=== PATIENT | female | born 1975 | race Caucasian/White ===

== ENCOUNTER 2016-06-13 03:51 | Emergency (ER) | payer OTHER ==
[~2016-06-13] VITALS: Ht 154.9 cm; Wt 56.0 kg
[2016-06-13] VITALS (7 sets, daily range): BP systolic 92–111; BP diastolic 52–60; PULSE 70–91; RESP 15–18; TEMP 96.6–97.7; O2SAT 97–99
[~2016-06-13 03:51] MED LIST: FLUO20TA20 PO; HYDRO50 PO; LURA80 PO; TRAZ50TA78 PO
[2016-06-13] MEDS ORDERED: CLON.5 PO (04:19)
[2016-06-13] MEDS ORDERED: PROZ40CA PO (04:19)
[2016-06-13] MEDS ORDERED: CLON0.1T PO (04:19)
[2016-06-13] MEDS ORDERED: SUBO8MIS SL (04:20)
[2016-06-13] MEDS ORDERED: LURA20TA PO (04:21)
[2016-06-13 04:22] LABS: AUTOMATED NEUTROPHIL # 3.6 TH/MM3 (1.8-7.7); BASOPHIL % 0.4 % (0.0-2.0); EOSINOPHIL # 0.8 TH/MM3 (0-0.4); EOSINOPHIL % 10.2 % (0.0-4.0); HEMATOCRIT 37.3 % (35.0-46.0); HEMO FLAGS DIFF FINAL; LYMPH % 33.8 % (9.0-44.0); LYMPHOCYTE # 2.6 TH/MM3 (1.0-4.8); MEAN CELL VOLUME 86.1 FL (80.0-100.0); MEAN CORPUSCULAR HEMOGLOBIN 29.6 PG (27.0-34.0); MEAN CORPUSCULAR HGB CONC 34.4 % (32.0-36.0); MONO % 8.4 % (0.0-8.0); NEUT % 47.2 % (16.0-70.0); PLATELET COUNT 199 TH/MM3 (150-450); RED BLOOD COUNT 4.33 MIL/MM3 (4.00-5.30); RED CELL DISTRIBUTION WIDTH 14.6 % (11.6-17.2); WHITE BLOOD COUNT 7.7 TH/MM3 (4.0-11.0)
[2016-06-13 04:41] LABS: ALT (GPT) 14 U/L (10-53); ANION GAP 6 MEQ/L (5-15); AST (GOT) 14 U/L (15-37); BLOOD UREA NITROGEN 15 MG/DL (7-18); CHLORIDE 104 MEQ/L (98-107); GLOMERULAR FILTRATION RATE 76 ML/MIN (>89); POTASSIUM 3.3 MEQ/L (3.5-5.1); SODIUM (NA) 138 MEQ/L (136-145)
[2016-06-13 04:43] LABS: ALKALINE PHOSPHATASE 68 U/L (45-117); TOTAL BILIRUBIN ADULT 0.5 MG/DL (0.2-1.0)
[2016-06-13] MEDS ORDERED: POTASSIUM CHLORIDE 20 MEQ CONTROLLED RELEASE TAB PO ONE (05:00)
--- NOTE | 2016-06-13 05:34 | PD ---
HPI Chief Complaint: Psychiatric Symptoms Time Seen by Provider: 05:34 Travel History International Travel<30 days: No Contact w/Intl Traveler<30days: No Traveled to known affect area: No History of Present Illness HPI 41-year-old female with history of bipolar disorder, currently not taking her medications and substance abuse presents to the emergency department under Pollard act for psychiatric evaluation. Patient is depressed about her children about her addiction to opiates. She recently used heroin. She states she was walking in the Road contemplating jumping in traffic. She is brought here for further evaluation. Patient does not offer much history. She has very flat depressed affect. She has no other symptoms to report. PFSH Past Medical History Medical History: Denies Significant Hx Arthritis: No Asthma: No Blood Disorders: No Bipolar Disorder: Yes Anxiety: Yes Depression: Yes Heart Rhythm Problems: No High Cholesterol: No Chest Pain: No Congestive Heart Failure: No COPD: No Cerebrovascular Accident: No Diminished Hearing: No Endocrine: No Gastrointestinal Disorders: No GERD: No Genitourinary: No Hepatitis: No Hiatal Hernia: No Hypertension: No Immune Disorder: No Implanted Vascular Access Dvce: No Kidney Stones: No Musculoskeletal: No Neurologic: No Psychiatric: Yes Reproductive: No Respiratory: No Integumentary: Yes (HERPES) Migraines: Yes Myocardial Infarction: No Renal Failure: No Sleep Apnea: No Ulcer: No PNEUMOCCOCAL Vaccine (Year): 2 ?: Unknown Menopausal: No : 4 Para: 3 Miscarriage: 0 : 1 Past Surgical History Surgical History: No Previous Surgery Abdominal Surgery: No Appendectomy: No Cardiac Surgery: No Cholecystectomy: No Ear Surgery: No Endocrine Surgery: No Eye Surgery: No Genitourinary Surgery: No Gynecologic Surgery: No Neurologic Surgery: No Oral Surgery: No Thoracic Surgery: No Other Surgery: Yes (BREAST AUGMENTATION) Social History Alcohol Use: Yes Tobacco Use: Yes Substance Use: Yes (HEROIN 2 DAYS AGO) Allergies-Medications (Allergen,Severity, Reaction): Coded Allergies: Bactrim (Verified Allergy, Severe, SWELLING AND HIVES, 06/13/16) Penicillin (Verified Allergy, Severe, HIVES, 06/13/16) Reported Meds & Prescriptions Reported Meds & Active Scripts Active Reported Latuda (Lurasidone) 20 Mg Tab 20 Mg PO DAILY Suboxone Sublingual Film (Buprenorphine-Naloxone Sublingual Film) 8-2 Mg Film 1 Film SL Unique ID number required: Klonopin (Clonazepam) Unknown Strength Tab Unknown Dose PO BID Clonidine (Clonidine HCl) 0.1 Mg Tab 0.1 Mg PO BID Prozac (Fluoxetine HCl) 40 Mg Cap 40 Mg PO DAILY Review of Systems Except as stated in HPI: all other systems reviewed are Neg Physical Exam Narrative GENERAL: Well-nourished female patient, in no acute distress SKIN: Focused skin assessment warm/dry. HEAD: Atraumatic. Normocephalic. EYES: Pupils equal and round. No scleral icterus. No injection or drainage. ENT: No nasal bleeding or discharge. Mucous membranes pink and moist. NECK: Trachea midline. No JVD. CARDIOVASCULAR: Regular rate and rhythm. No murmur appreciated. RESPIRATORY: No accessory muscle use. Clear to auscultation. Breath sounds equal bilaterally. GASTROINTESTINAL: Abdomen soft, non-tender, nondistended. Hepatic and splenic margins not palpable. MUSCULOSKELETAL: No obvious deformities. No clubbing. No cyanosis. No edema. NEUROLOGICAL: Awake and alert. No obvious cranial nerve deficits. Motor grossly within normal limits. Normal speech. PSYCHIATRIC: Tearful, flat affect Data Data Last Documented VS Vital Signs Date Time Temp Pulse Resp B/P Pulse Ox O2 Delivery O2 Flow Rate FiO2 06/13/16 04:17 74 06/13/16 04:07 97.7 15 99/57 97 Orders Complete Blood Count With Diff (06/13/16 04:04) Comprehensive Metabolic Panel (06/13/16 04:04) Psych Screen (06/13/16 04:04) Drug Screen, Random Urine (06/13/16 04:04) Alcohol (Ethanol) (06/13/16 04:04) Salicylates (Aspirin) (06/13/16 04:04) Potassium Chloride (Kcl) (06/13/16 05:00) Labs Laboratory Tests Test 06/13/16 04:18 White Blood Count 7.7 TH/MM3 Red Blood Count 4.33 MIL/MM3 Hemoglobin 12.8 GM/DL Hematocrit 37.3 % Mean Corpuscular Volume 86.1 FL Mean Corpuscular Hemoglobin 29.6 PG Mean Corpuscular Hemoglobin 34.4 % Concent Red Cell Distribution Width 14.6 % Platelet Count 199 TH/MM3 Mean Platelet Volume 9.7 FL Neutrophils (%) (Auto) 47.2 % Lymphocytes (%) (Auto) 33.8 % Monocytes (%) (Auto) 8.4 % Eosinophils (%) (Auto) 10.2 % Basophils (%) (Auto) 0.4 % Neutrophils # (Auto) 3.6 TH/MM3 Lymphocytes # (Auto) 2.6 TH/MM3 Monocytes # (Auto) 0.6 TH/MM3 Eosinophils # (Auto) 0.8 TH/MM3 Basophils # (Auto) 0.0 TH/MM3 CBC Comment DIFF FINAL Differential Comment Sodium Level 138 MEQ/L Potassium Level 3.3 MEQ/L Chloride Level 104 MEQ/L Carbon Dioxide Level 28.0 MEQ/L Anion Gap 6 MEQ/L Blood Urea Nitrogen 15 MG/DL Creatinine 0.82 MG/DL Estimat Glomerular Filtration 76 ML/MIN Rate Random Glucose 150 MG/DL Calcium Level 8.9 MG/DL Total Bilirubin 0.5 MG/DL Aspartate Amino Transf 14 U/L (AST/SGOT) Alanine Aminotransferase 14 U/L (ALT/SGPT) Alkaline Phosphatase 68 U/L Total Protein 6.9 GM/DL Albumin 3.5 GM/DL Salicylates Level 3.1 MG/DL Ethyl Alcohol Level LESS THAN 3 MG/DL MDM Medical Decision Making Medical Screen Exam Complete: Yes Emergency Medical Condition: Yes Medical Record Reviewed: Yes Differential Diagnosis Mood disorder versus personality disorder versus adjustment reaction disorder versus polysubstance abuse Narrative Course 41-year-old female presents to the emergency department under Pollard act for psychiatric evaluation. Lab work is without acute concern. Patient does have hypokalemia at 3.3. This was repleted here in the emergency department. She is medically cleared to undergo psychiatric screening for further evaluation and disposition. Mental health screening discussed with the patient. Psychiatric screen ordered. Diagnosis Primary Impression: Bipolar disorder Qualified Code: F31.32 - Bipolar affective disorder, currently depressed, moderate Condition: Stable Eliane Batista June 13, 2016 05:34
[2016-06-13 15:20] LABS: AMPHETAMINE, URINE NEG (NEG); BARBITURATES, URINE NEG (NEG)
[2016-06-13 15:26] LABS: COCAINE, URINE POS (NEG)
[2016-06-14 02:23] VITALS: BP 103/58; PULSE 72; RESP 18; O2SAT 99
== END 2016-06-14 05:10 ==
LOC: NEPD 03:51 → NEPJ 06-14 05:10
DX: F31.9 Bipolar disorder, unspecified (principal); F11.10 Opioid abuse, uncomplicated; Z72.0 Tobacco use; E87.6 Hypokalemia
CPT/HCPCS: 80053; 80307; 85025; 99284

== ENCOUNTER 2016-11-06 13:24 | Emergency (ER) | payer SELFPAY ==
[~2016-11-06] VITALS: Ht 154.9 cm; Wt 50.0 kg
[~2016-11-06 13:24] MED LIST changes: +CLON.5 PO; +CLON0.1T PO; -FLUO20TA20 PO; -HYDRO50 PO; +LURA20TA PO; -LURA80 PO; +PROZ40CA PO; +SUBO8MIS SL; -TRAZ50TA78 PO
[2016-11-06 13:33] VITALS: BP 105/82; PULSE 93; RESP 18; TEMP 98.2; O2SAT 98
[2016-11-06 14:26] LABS: AUTOMATED NEUTROPHIL # 9.3 TH/MM3 (1.8-7.7); BASOPHIL # 0.1 TH/MM3 (0-0.2); BASOPHIL % 0.9 % (0.0-2.0); EOSINOPHIL # 0.2 TH/MM3 (0-0.4); EOSINOPHIL % 1.9 % (0.0-4.0); HEMATOCRIT 41.8 % (35.0-46.0); HEMO FLAGS DIFF FINAL; LYMPH % 16.2 % (9.0-44.0); MEAN CELL VOLUME 90.6 FL (80.0-100.0); MEAN CORPUSCULAR HEMOGLOBIN 30.4 PG (27.0-34.0); MEAN CORPUSCULAR HGB CONC 33.6 % (32.0-36.0); MONO % 5.5 % (0.0-8.0); NEUT % 75.5 % (16.0-70.0); PLATELET COUNT 284 TH/MM3 (150-450); RED BLOOD COUNT 4.61 MIL/MM3 (4.00-5.30); RED CELL DISTRIBUTION WIDTH 14.3 % (11.6-17.2); WHITE BLOOD COUNT 12.4 TH/MM3 (4.0-11.0)
[2016-11-06 14:40] LABS: ALT (GPT) 15 U/L (10-53); ANION GAP 4 MEQ/L (5-15); AST (GOT) 10 U/L (15-37); BICARBONATE 27.4 MEQ/L (21.0-32.0); BLOOD UREA NITROGEN 12 MG/DL (7-18); CHLORIDE 110 MEQ/L (98-107); GLOMERULAR FILTRATION RATE 82 ML/MIN (>89); POTASSIUM 3.8 MEQ/L (3.5-5.1); SODIUM (NA) 141 MEQ/L (136-145)
[2016-11-06 14:42] LABS: ALKALINE PHOSPHATASE 69 U/L (45-117); TOTAL BILIRUBIN ADULT 1.2 MG/DL (0.2-1.0)
[2016-11-06 14:48] LABS: ACETAMINOPHEN LESS THAN 2.0 MCG/ML (10.0-30.0); ALCOHOL LESS THAN 3 MG/DL (0-5)
--- NOTE | 2016-11-06 15:16 | PD ---
HPI Chief Complaint: Suicide Ideation/Attempt Time Seen by Provider: 14:58 Travel History International Travel<30 days: No Contact w/Intl Traveler<30days: No Traveled to known affect area: No History of Present Illness HPI 41-year-old female that presents to the ED for evaluation of psychiatric evaluation. Patient was Pollard acted by police. Patient reports that she has a history of bipolar disorder. She's been off her medications for some time. Per patient she believes that she needs to be back on them. She states Prozac and latuda. Patient didn't denies any other medical issues. She does take Lortab chronically for back pain. She does abuses drugs including injectables. She last used a couple days ago. Per patient she has his help us at this time and she does want to hurt herself but she states that she wants help. She denies any actual plan to she can tell me. No fevers chills or sweats. No other medical issues. No head injuries. No other medical complaints at this time. She denies any history of hypertension or diabetes. She does have allergies to different antibiotics. She denies any cuts. She was Pollard acted by police for her own safety. She has been Pollard acted in the past. Denies any homicidal ideation. No hearing voices. She attributes her depression to worsening secondary to substance abuse. This is been ongoing for a few weeks and worsened by being off her medications for a couple months now. PFSH Past Medical History Arthritis: No Asthma: No Blood Disorders: No Bipolar Disorder: Yes Anxiety: Yes Depression: Yes Heart Rhythm Problems: No High Cholesterol: No Chest Pain: No Congestive Heart Failure: No COPD: No Cerebrovascular Accident: No Diminished Hearing: No Endocrine: No Gastrointestinal Disorders: No GERD: No Genitourinary: No Hepatitis: No Hiatal Hernia: No Hypertension: No Immune Disorder: No Implanted Vascular Access Dvce: No Kidney Stones: No Musculoskeletal: No Neurologic: No Psychiatric: Yes Reproductive: No Respiratory: No Integumentary: Yes (HERPES) Migraines: Yes Myocardial Infarction: No Renal Failure: No Sleep Apnea: No Ulcer: No PNEUMOCCOCAL Vaccine (Year): 2 ?: Not Menopausal: No : 4 Para: 3 Miscarriage: 0 : 1 Past Surgical History Abdominal Surgery: No Appendectomy: No Cardiac Surgery: No Cholecystectomy: No Ear Surgery: No Endocrine Surgery: No Eye Surgery: No Genitourinary Surgery: No Gynecologic Surgery: No Neurologic Surgery: No Oral Surgery: No Thoracic Surgery: No Other Surgery: Yes (BREAST AUGMENTATION) Social History Alcohol Use: Yes Tobacco Use: Yes Substance Use: Yes Allergies-Medications (Allergen,Severity, Reaction): Coded Allergies: penicillin G (Unverified Allergy, Severe, HIVES, 11/06/16) sulfamethoxazole (Unverified Allergy, Severe, SWELLING AND HIVES, 11/06/16) trimethoprim (Unverified Allergy, Severe, SWELLING AND HIVES, 11/06/16) Reported Meds & Prescriptions Reported Meds & Active Scripts Active Cipro (Ciprofloxacin HCl) 500 Mg Tab 500 Mg PO BID 7 Days Reported Latuda (Lurasidone) 20 Mg Tab 20 Mg PO DAILY Suboxone Sublingual Film (Buprenorphine-Naloxone Sublingual Film) 8-2 Mg Film 1 Film SL Unique ID number required: Klonopin (Clonazepam) Unknown Strength Tab Unknown Dose PO BID Clonidine (Clonidine HCl) 0.1 Mg Tab 0.1 Mg PO BID Prozac (Fluoxetine HCl) 40 Mg Cap 40 Mg PO DAILY Review of Systems Except as stated in HPI: all other systems reviewed are Neg Physical Exam Narrative GENERAL: SKIN: Warm and dry. HEAD: Atraumatic. Normocephalic. EYES: Pupils equal and round. No scleral icterus. No injection or drainage. ENT: No nasal bleeding or discharge. Mucous membranes pink and moist. Tongue is midline. No uvula deviation. NECK: Trachea midline. No JVD. CARDIOVASCULAR: Regular rate and rhythm. No murmurs, S3, S4. RESPIRATORY: No accessory muscle use. Clear to auscultation. Breath sounds equal bilaterally. GASTROINTESTINAL: Abdomen soft, non-tender, nondistended. Hepatic and splenic margins not palpable. MUSCULOSKELETAL: Extremities without clubbing, cyanosis, or edema. No obvious deformities. Full range of motion of the upper and lower extremities bilaterally. 2+ pulses bilaterally. NEUROLOGICAL: Awake and alert. No obvious cranial nerve deficits. Motor grossly within normal limits. Five out of 5 muscle strength in the arms and legs. Normal speech. PSYCHIATRIC: Depressed mood and affect; insight and judgment normal. Data Data Last Documented VS Vital Signs Date Time Temp Pulse Resp B/P (MAP) Pulse Ox O2 Delivery O2 Flow Rate FiO2 11/06/16 15:50 97.6 92 18 119/70 (86) 99 Room Air Orders Orders Complete Blood Count With Diff (11/06/16 13:48) Comprehensive Metabolic Panel (11/06/16 13:48) Urinalysis - C+S If Indicated (11/06/16 13:48) Psych Screen (11/06/16 13:48) Drug Screen, Random Urine (11/06/16 13:48) Alcohol (Ethanol) (11/06/16 13:48) Salicylates (Aspirin) (11/06/16 13:48) Tylenol (Acetaminophen) (11/06/16 13:48) Diet Regular Basic (11/06/16 Dinner) Urine Culture (11/06/16 15:28) Ciprofloxacin (Cipro) (11/06/16 17:30) Labs Laboratory Tests Test 11/06/16 14:08 11/06/16 15:28 White Blood Count 12.4 TH/MM3 Red Blood Count 4.61 MIL/MM3 Hemoglobin 14.0 GM/DL Hematocrit 41.8 % Mean Corpuscular Volume 90.6 FL Mean Corpuscular Hemoglobin 30.4 PG Mean Corpuscular Hemoglobin Concent 33.6 % Red Cell Distribution Width 14.3 % Platelet Count 284 TH/MM3 Mean Platelet Volume 9.1 FL Neutrophils (%) (Auto) 75.5 % Lymphocytes (%) (Auto) 16.2 % Monocytes (%) (Auto) 5.5 % Eosinophils (%) (Auto) 1.9 % Basophils (%) (Auto) 0.9 % Neutrophils # (Auto) 9.3 TH/MM3 Lymphocytes # (Auto) 2.0 TH/MM3 Monocytes # (Auto) 0.7 TH/MM3 Eosinophils # (Auto) 0.2 TH/MM3 Basophils # (Auto) 0.1 TH/MM3 CBC Comment DIFF FINAL Differential Comment Blood Urea Nitrogen 12 MG/DL Creatinine 0.77 MG/DL Random Glucose 101 MG/DL Total Protein 7.3 GM/DL Albumin 3.9 GM/DL Calcium Level 8.9 MG/DL Alkaline Phosphatase 69 U/L Aspartate Amino Transf (AST/SGOT) 10 U/L Alanine Aminotransferase (ALT/SGPT) 15 U/L Total Bilirubin 1.2 MG/DL Sodium Level 141 MEQ/L Potassium Level 3.8 MEQ/L Chloride Level 110 MEQ/L Carbon Dioxide Level 27.4 MEQ/L Anion Gap 4 MEQ/L Estimat Glomerular Filtration Rate 82 ML/MIN Salicylates Level 2.8 MG/DL Acetaminophen Level LESS THAN 2.0 MCG/ML Ethyl Alcohol Level LESS THAN 3 MG/DL Urine Color RED Urine Turbidity HAZY Urine pH 5.0 Urine Specific Cassandra 1.030 Urine Protein 30 mg/dL Urine Glucose (UA) TRACE mg/dL Urine Ketones NEG mg/dL Urine Occult Blood LARGE Urine Nitrite NEG Urine Bilirubin NEG Urine Urobilinogen LESS THAN 2.0 MG/DL Urine Leukocyte Esterase SMALL Urine RBC /hpf Urine WBC 63 /hpf Urine Squamous Epithelial Cells 5 /hpf Urine Amorphous Sediment RARE Urine Mucus MANY /lpf Microscopic Urinalysis Comment CULTURE INDICATED Urine Opiates Screen NEG Urine Barbiturates Screen NEG Urine Amphetamines Screen POS Urine Benzodiazepines Screen POS Urine Cocaine Screen POS Urine Cannabinoids Screen NEG MDM Medical Decision Making Medical Screen Exam Complete: Yes Emergency Medical Condition: Yes Medical Record Reviewed: Yes Interpretation(s) CBC & BMP Diagram 11/06/16 14:08 Total Protein 7.3, Albumin 3.9, Calcium Level 8.9, Alkaline Phosphatase 69, Aspartate Amino Transf (AST/SGOT) 10 L, Alanine Aminotransferase (ALT/SGPT) 15, Total Bilirubin 1.2 H tox positive for benzos, meth, cocaine UA shows UTI Differential Diagnosis Depression versus suicidal ideation versus anxiety versus adjustment disorder versus mood disorder versus bipolar disorder versus schizophrenia versus paranoid disorder versus psychosis versus substance abuse versus alcohol abuse versus alcohol induced psychosis versus homicidality addition versus cutting versus personality disorder Narrative Course 41-year-old female that presents to the ED for evaluation of psych. Patient was properly examined and was found to have signs and symptoms consistent with psychiatric illness. No sign of acute medical distress. Labs were drawn. Patient will be medically clear. Okay to be seen by psych. Mental health screening was discussed with the patient. She was found to have UTI and started on cipro here with prescription. Diagnosis Primary Impression: Bipolar disorder Qualified Codes: F31.32 - Bipolar disorder, current episode depressed, moderate Additional Impressions: UTI (urinary tract infection) Qualified Codes: N30.00 - Acute cystitis without hematuria Polysubstance abuse Scripts Ciprofloxacin (Cipro) 500 Mg Tab 500 MG PO BID for Infection for 7 Days, #14 TAB 0 Refills Prov: Renetta Espinal MD 11/06/16 Juan Noe Nov 06, 2016 15:16
[2016-11-06 15:50] VITALS: BP 119/70; PULSE 92; RESP 18; TEMP 97.6; O2SAT 99
[2016-11-06 16:13] LABS: BLOOD, URINE LARGE (NEG); COMMENT (UR) CULTURE INDICATED; CULTURE IF INDICATED CULTURE INDICATED; GLUCOSE,URINE TRACE mg/dL (NEG); KETONE, URINE NEG (NEG); MUCUS URINE MANY /lpf (OCC); NITRITE,URINE NEG (NEG); SQUAMOUS EPITHELIAL CELL URINE 5 /hpf (0-5); URINE COLOR RED (YELLW/STRAW)
[2016-11-06] MEDS ORDERED: CIPR-9 PO (17:18)
[2016-11-06] MEDS ORDERED: CIPROFLOXACIN 500 MG TAB PO ONE (17:30)
[2016-11-06 20:18] VITALS: BP 94/50; PULSE 61; RESP 18
[2016-11-07 06:35] VITALS: BP 104/54; PULSE 63; RESP 18; O2SAT 96
[2016-11-07 10:44] VITALS: BP 105/60; PULSE 65; RESP 16
--- NOTE | 2016-11-07 16:07 | PD ---
History of Present Illness Chief Complaint: Suicide Ideation/Attempt Time Seen by Provider: 15:40 Travel History International Travel<30 Days: No Contact w/Intl Traveler<30days: No Known affected area: No Legal Status Legal Status: Pollard Act Pollard Act Signed By: Teddy Pollard Act Comment: [employer] Badge#[id number], Case#[id number] History of Present Illness: History of Present Illness HPI 41-year-old female with history of bipolar disorder as well as substance abuse who presents to the ED for evaluation of psychiatric evaluation. Patient was Pollard acted by police after she reported that she didn't care if she lived or and that she would use narcotics as a way to do so. She's been off her medications for some time. Per patient she believes that she needs to be back on them. and wants to be back on them . She admits to having had a relapse and has been using drugs for the past 3 days . Denies any homicidal ideation. She attributes her depression to worsening secondary to substance abuse. Patient seen. record reviewed. Her last psychiatric admission was in 2016. Current toxicology is positive for amphetamines, benzos and cocaine. Patient has been monitored in [facility]. She is alert, oriented, irritable. Speech is clear and logical, not pressured. There is no psychosis, no josé miguel. Denies suicidal ideation, intent or plan. Patient is requesting to have her psychiatric medications started. She agrees to follow up with [facility] in the morning. She has met with egg caser to assist her with setting up appointment. [facility] Past Medical History Arthritis: No Asthma: No Blood Disorders: No Bipolar Disorder: Yes Anxiety: Yes Depression: Yes Heart Rhythm Problems: No High Cholesterol: No Chest Pain: No Congestive Heart Failure: No COPD: No Cerebrovascular Accident: No Diminished Hearing: No Endocrine: No Gastrointestinal Disorders: No GERD: No Genitourinary: No Hepatitis: No Hiatal Hernia: No Hypertension: No Immune Disorder: No Implanted Vascular Access Dvce: No Kidney Stones: No Medical other: Yes (HSV) Musculoskeletal: No Neurologic: No Psychiatric: Yes Reproductive: No Respiratory: No Integumentary: Yes (HERPES) Migraines: Yes Myocardial Infarction: No Renal Failure: No Sleep Apnea: No Ulcer: No PNEUMOCCOCAL Vaccine (Year): 2 ?: Not Menopausal: No : 4 Para: 3 Miscarriage: 0 : 1 Past Surgical History Abdominal Surgery: No Appendectomy: No Cardiac Surgery: No Cholecystectomy: No Ear Surgery: No Endocrine Surgery: No Eye Surgery: No Genitourinary Surgery: No Gynecologic Surgery: No Neurologic Surgery: No Oral Surgery: No Thoracic Surgery: No Other Surgery: Yes (breast augmentation) Psychiatric History Psychiatric History Hx Psychiatric Treatment: Says she was last at [facility] but cannot say when, guesses 6 mo to 1 yr ago Last hosp in 2016 History of Inpatient Treatment: Yes Guns or firearms in home: No Social History . Lives with her and her child. Works at a [employer]. Hx Alcohol Use: Yes Hx Tobacco Use: Yes Hx Substance Use: Yes Substance Use Type: Crack, Amphetamines-Stimulants, Benzos (Valium,Xanax), Cocaine Other Substances Used: Pt says she has been to numerous substance abuse facilities Hx of Substance Use Treatment: Yes Family Psychiatric History Negative Allergies-Medications (Allergen,Severity, Reaction): Coded Allergies: penicillin G (Unverified Allergy, Severe, HIVES, 11/06/16) sulfamethoxazole (Unverified Allergy, Severe, SWELLING AND HIVES, 11/06/16) trimethoprim (Unverified Allergy, Severe, SWELLING AND HIVES, 11/06/16) Reported Meds & Prescriptions Reported Meds & Active Scripts Active Cipro (Ciprofloxacin HCl) 500 Mg Tab 500 Mg PO BID 7 Days Reported Latuda (Lurasidone) 20 Mg Tab 20 Mg PO DAILY Suboxone Sublingual Film (Buprenorphine-Naloxone Sublingual Film) 8-2 Mg Film 1 Film SL Unique ID number required: Klonopin (Clonazepam) Unknown Strength Tab Unknown Dose PO BID Clonidine (Clonidine HCl) 0.1 Mg Tab 0.1 Mg PO BID Prozac (Fluoxetine HCl) 40 Mg Cap 40 Mg PO DAILY Review of Systems Except as stated in HPI: all other systems reviewed are Neg Exam Alert: Yes [place]: Person (ox4) Mood: Angry Affect: Appropriate Speech: Clear, Logical Eye Contact: Normal Memory Intact: Comment (Not impaired) Hallucinations: Other (negative) Delusions: No Suicidal: Ideation (deneis any) Homicidal: Ideation (deneis any) Insight/Judgement Poor. not impaired. MDM Medical Decision Making Medical Record Reviewed: Yes Assessment/Plan 41-year-old female with history of bipolar disorder as well as substance abuse who presents to the ED for evaluation of psychiatric evaluation. Patient was Pollard acted by police after she reported that she didn't care if she lived or and that she would use narcotics as a way to do so. She's been off her medications for several months. . Per patient she believes that she needs to be back on them. and wants to be back on them . She admits to having had a relapse and has been using drugs for the past 3 days . Denies any homicidal ideation. She attributes her depression to worsening secondary to substance abuse. Sherice is not psychotic, not manic. She denies any suicidality. She wants to have her medications restarted and agrees to follow up with [facility] in the morning. Lift Ba at this time. Follow up with [facility]. Orders Orders Urine Culture (11/06/16 15:28) Ciprofloxacin (Cipro) (11/06/16 17:30) Diet Regular Basic (11/07/16 Breakfast) Diet Regular Basic (11/07/16 Lunch) Diet Regular Basic (11/07/16 Dinner) Results Vital Signs Date Time Temp Pulse Resp B/P (MAP) Pulse Ox O2 Delivery O2 Flow Rate FiO2 11/07/16 10:44 65 16 105/60 (75) 11/07/16 06:35 63 18 104/54 (71) 96 Room Air 11/06/16 20:18 61 18 94/50 (65) Date/Time Source Procedure Growth Status 11/06/16 15:28 Urine Random Urine Urine Culture - Preliminary IMMATURE GROWTH - REINCUBATE Resulted Diagnosis Primary Impression: Bipolar disorder Additional Impressions: UTI (urinary tract infection) Polysubstance abuse Psychiatrically Cleared: Yes Med/ Other Pt Specific Info: Prescription(s) given Prescriptions Ciprofloxacin (Cipro) 500 Mg Tab 500 MG PO BID for Infection for 7 Days, #14 TAB 0 Refills Prov: Renetta Espinal MD 11/06/16 Disposition: 01 DISCHARGE HOME Condition: Stable Problem Qualifiers Primary Impression: Bipolar disorder Qualified Codes: F31.32 - Bipolar disorder, current episode depressed, moderate Additional Impressions: UTI (urinary tract infection) Qualified Codes: N30.00 - Acute cystitis without hematuria Roma Jaramillo Nov 07, 2016 16:07
[2016-11-07] MEDS ORDERED: FLUoxetine HCL 20 MG CAP PO ONE (16:15)
[2016-11-07] MEDS ORDERED: LURASIDONE 40 MG TAB PO ONE (16:15)
--- NOTE | 2016-11-07 16:44 | PD ---
Physical Exam Date Seen by Provider: Nov 07, 2016 Time Seen by Provider: 16:41 Data Data Last Documented VS Vital Signs Date Time Temp Pulse Resp B/P (MAP) Pulse Ox O2 Delivery O2 Flow Rate FiO2 11/07/16 17:10 11/07/16 17:01 65 16 Room Air 11/07/16 06:35 96 11/06/16 15:50 97.6 Orders Orders Complete Blood Count With Diff (11/06/16 13:48) Comprehensive Metabolic Panel (11/06/16 13:48) Urinalysis - C+S If Indicated (11/06/16 13:48) Psych Screen (11/06/16 13:48) Drug Screen, Random Urine (11/06/16 13:48) Alcohol (Ethanol) (11/06/16 13:48) Salicylates (Aspirin) (11/06/16 13:48) Tylenol (Acetaminophen) (11/06/16 13:48) Diet Regular Basic (11/06/16 Dinner) Urine Culture (11/06/16 15:28) Ciprofloxacin (Cipro) (11/06/16 17:30) Diet Regular Basic (11/07/16 Breakfast) Diet Regular Basic (11/07/16 Lunch) Diet Regular Basic (11/07/16 Dinner) Lurasidone (Latuda) (11/07/16 16:15) Fluoxetine (Prozac) (11/07/16 16:15) Labs Laboratory Tests Test 11/06/16 14:08 11/06/16 15:28 White Blood Count 12.4 TH/MM3 Red Blood Count 4.61 MIL/MM3 Hemoglobin 14.0 GM/DL Hematocrit 41.8 % Mean Corpuscular Volume 90.6 FL Mean Corpuscular Hemoglobin 30.4 PG Mean Corpuscular Hemoglobin Concent 33.6 % Red Cell Distribution Width 14.3 % Platelet Count 284 TH/MM3 Mean Platelet Volume 9.1 FL Neutrophils (%) (Auto) 75.5 % Lymphocytes (%) (Auto) 16.2 % Monocytes (%) (Auto) 5.5 % Eosinophils (%) (Auto) 1.9 % Basophils (%) (Auto) 0.9 % Neutrophils # (Auto) 9.3 TH/MM3 Lymphocytes # (Auto) 2.0 TH/MM3 Monocytes # (Auto) 0.7 TH/MM3 Eosinophils # (Auto) 0.2 TH/MM3 Basophils # (Auto) 0.1 TH/MM3 CBC Comment DIFF FINAL Differential Comment Blood Urea Nitrogen 12 MG/DL Creatinine 0.77 MG/DL Random Glucose 101 MG/DL Total Protein 7.3 GM/DL Albumin 3.9 GM/DL Calcium Level 8.9 MG/DL Alkaline Phosphatase 69 U/L Aspartate Amino Transf (AST/SGOT) 10 U/L Alanine Aminotransferase (ALT/SGPT) 15 U/L Total Bilirubin 1.2 MG/DL Sodium Level 141 MEQ/L Potassium Level 3.8 MEQ/L Chloride Level 110 MEQ/L Carbon Dioxide Level 27.4 MEQ/L Anion Gap 4 MEQ/L Estimat Glomerular Filtration Rate 82 ML/MIN Salicylates Level 2.8 MG/DL Acetaminophen Level LESS THAN 2.0 MCG/ML Ethyl Alcohol Level LESS THAN 3 MG/DL Urine Color RED Urine Turbidity HAZY Urine pH 5.0 Urine Specific [place] 1.030 Urine Protein 30 mg/dL Urine Glucose (UA) TRACE mg/dL Urine Ketones NEG mg/dL Urine Occult Blood LARGE Urine Nitrite NEG Urine Bilirubin NEG Urine Urobilinogen LESS THAN 2.0 MG/DL Urine Leukocyte Esterase SMALL Urine RBC /hpf Urine WBC 63 /hpf Urine Squamous Epithelial Cells 5 /hpf Urine Amorphous Sediment RARE Urine Mucus MANY /lpf Microscopic Urinalysis Comment CULTURE INDICATED Urine Opiates Screen NEG Urine Barbiturates Screen NEG Urine Amphetamines Screen POS Urine Benzodiazepines Screen POS Urine Cocaine Screen POS Urine Cannabinoids Screen NEG MDM Supervised Visit with BENITA: No Narrative Course 41-year-old female initially brought to the ED under Pollard act. I was asked to disposition the patient. The patient was evaluated and medically cleared by Johan Noe PA-C. She was evaluated by the psychiatric nurse, SAUNDRA Wade and the Pollard act was lifted. Please see their notes for those details. On my evaluation the patient is alert, oriented. She has no somatic complaints. GENERAL: Well-nourished, well-developed white female in no acute distress. SKIN: Focused skin assessment warm/dry. HEAD: Normocephalic. EYES: No scleral icterus. No injection or drainage. NECK: Supple, trachea midline. No JVD or lymphadenopathy. CARDIOVASCULAR: Regular rate and rhythm without murmurs, gallops, or rubs. RESPIRATORY: Breath sounds clear and equal bilaterally. No accessory muscle use. GASTROINTESTINAL: Abdomen soft, non-tender, nondistended. Active bowel sounds. MUSCULOSKELETAL: No cyanosis, or edema. Normal gait. BACK: Nontender without obvious deformity. No CVA tenderness. Patient is diagnosed with UTI, bipolar and polysubstance abuse. She is provided with a course of Cipro. She is instructed to seek outpatient treatment at [facility]. She is stable and discharged home. Diagnosis Primary Impression: Bipolar disorder Qualified Codes: F31.32 - Bipolar disorder, current episode depressed, moderate Additional Impressions: UTI (urinary tract infection) Qualified Codes: N30.00 - Acute cystitis without hematuria Polysubstance abuse Referrals: [facility] (Out patient) Patient Instructions: General Instructions, Urinary Tract Infection in Women ( ED) Additional Instruction: Rest, hydrate. Take all antibiotics as prescribed, even if your symptoms resolved. Seek outpatient treatment at [facility] as discussed with the nurse practitioner. Return to the ED for any urgent or emergent medical condition. Med/Other Pt SpecificInfo: Prescription(s) given Scripts Ciprofloxacin (Cipro) 500 Mg Tab 500 MG PO BID for Infection for 7 Days, #14 TAB 0 Refills Prov: Renetta Espinal MD 11/06/16 Disposition: 01 DISCHARGE HOME Condition: Stable Jewell Maldonado Nov 07, 2016 16:44
[2016-11-07 17:01] VITALS: BP 105/60; PULSE 65; RESP 16
== END 2016-11-07 18:46 | disposition home or self-care (01) ==
LOC: NEPJ 13:24
DX: F31.9 Bipolar disorder, unspecified (principal); N39.0 Urinary tract infection, site not specified; F19.10 Other psychoactive substance abuse, uncomplicated; F41.9 Anxiety disorder, unspecified; Z72.0 Tobacco use; Z79.899 Other long term (current) drug therapy; Z88.0 Allergy status to penicillin; Z88.2 Allergy status to sulfonamides; Z88.8 Allergy status to other drugs, medicaments and biological substances
CPT/HCPCS: 80053; 80307; 81001; 85025; 87086; 99283

== ENCOUNTER 2016-12-06 14:31 | Emergency (ER) | payer OTHER ==
[~2016-12-06] VITALS: Ht 154.9 cm; Wt 50.0 kg
[~2016-12-06 14:31] MED LIST changes: +CIPR-9 PO
[2016-12-06 15:17] LABS: AUTOMATED NEUTROPHIL # 4.2 TH/MM3 (1.8-7.7); BASOPHIL # 0.1 TH/MM3 (0-0.2); BASOPHIL % 1.3 % (0.0-2.0); EOSINOPHIL # 0.2 TH/MM3 (0-0.4); EOSINOPHIL % 2.3 % (0.0-4.0); HEMATOCRIT 38.2 % (35.0-46.0); HEMO FLAGS DIFF FINAL; LYMPH % 33.1 % (9.0-44.0); LYMPHOCYTE # 2.6 TH/MM3 (1.0-4.8); MEAN CORPUSCULAR HEMOGLOBIN 30.1 PG (27.0-34.0); MEAN CORPUSCULAR HGB CONC 33.9 % (32.0-36.0); MONO % 9.4 % (0.0-8.0); NEUT % 53.9 % (16.0-70.0); PLATELET COUNT 268 TH/MM3 (150-450); RED BLOOD COUNT 4.29 MIL/MM3 (4.00-5.30); RED CELL DISTRIBUTION WIDTH 13.7 % (11.6-17.2); WHITE BLOOD COUNT 7.8 TH/MM3 (4.0-11.0)
[2016-12-06 15:28] LABS: BLOOD, URINE SMALL (NEG); COMMENT (UR) CULT NOT INDICATED; CULTURE IF INDICATED CULT NOT INDICATED; GLUCOSE,URINE NEG (NEG); KETONE, URINE NEG (NEG); NITRITE,URINE NEG (NEG); SQUAMOUS EPITHELIAL CELL URINE 1 /hpf (0-5); TRANSITIONAL EPI CELLS, URINE <1 /hpf; URINE COLOR YELLOW (YELLW/STRAW)
[2016-12-06 15:33] LABS: ANION GAP 8 MEQ/L (5-15); AST (GOT) 11 U/L (15-37); BICARBONATE 26.1 MEQ/L (21.0-32.0); BLOOD UREA NITROGEN 10 MG/DL (7-18); CHLORIDE 106 MEQ/L (98-107); GLOMERULAR FILTRATION RATE 101 ML/MIN (>89); POTASSIUM 3.3 MEQ/L (3.5-5.1); SODIUM (NA) 140 MEQ/L (136-145)
[2016-12-06 15:36] LABS: ACETAMINOPHEN LESS THAN 2.0 MCG/ML (10.0-30.0); ALKALINE PHOSPHATASE 69 U/L (45-117); ALT (GPT) 12 U/L (10-53); TOTAL BILIRUBIN ADULT 0.5 MG/DL (0.2-1.0)
[2016-12-06 15:40] LABS: ALCOHOL LESS THAN 3 MG/DL (0-5)
--- NOTE | 2016-12-06 16:11 | PD ---
HPI Chief Complaint: psychiatric complaint Time Seen by Provider: 15:56 Travel History International Travel<30 days: No Contact w/Intl Traveler<30days: No History of Present Illness HPI 41-year-old female presents to the emergency Department under Pollard act for suicidal ideation. The patient states that she is detoxing from IV heroin for the past 48 hours. She states she started feeling suicidal today. Patient states she has been using IV heroin for the past 2 weeks. This is due to not being able to obtain pills from the street. Patient states that she has tried to get help with detox, because been unable to do so. She stresses that she would like help with detox. Patient reports no chronic medical problems and takes no prescribed medications. She has no medical complaints at this time. PFSH Past Medical History Arthritis: No Asthma: No Blood Disorders: No Bipolar Disorder: Yes Anxiety: Yes Depression: Yes Heart Rhythm Problems: No High Cholesterol: No Chest Pain: No Congestive Heart Failure: No COPD: No Cerebrovascular Accident: No Diminished Hearing: No Endocrine: No Gastrointestinal Disorders: No GERD: No Genitourinary: No Hepatitis: No Hiatal Hernia: No Hypertension: No Immune Disorder: No Implanted Vascular Access Dvce: No Kidney Stones: No Musculoskeletal: No Neurologic: No Psychiatric: Yes Reproductive: No Respiratory: No Integumentary: Yes (HERPES) Migraines: Yes Myocardial Infarction: No Renal Failure: No Sleep Apnea: No Ulcer: No PNEUMOCCOCAL Vaccine (Year): 2 Menopausal: No : 4 Para: 3 Miscarriage: 0 : 1 Past Surgical History Abdominal Surgery: No Appendectomy: No Cardiac Surgery: No Cholecystectomy: No Ear Surgery: No Endocrine Surgery: No Eye Surgery: No Genitourinary Surgery: No Gynecologic Surgery: No Neurologic Surgery: No Oral Surgery: No Thoracic Surgery: No Other Surgery: Yes (breast augmentation) Social History Alcohol Use: Yes Tobacco Use: Yes Substance Use: Yes Allergies-Medications (Allergen,Severity, Reaction): Coded Allergies: penicillin G (Unverified Allergy, Severe, HIVES, 11/06/16) sulfamethoxazole (Unverified Allergy, Severe, SWELLING AND HIVES, 11/06/16) trimethoprim (Unverified Allergy, Severe, SWELLING AND HIVES, 11/06/16) Reported Meds & Prescriptions Reported Meds & Active Scripts Active Cipro (Ciprofloxacin HCl) 500 Mg Tab 500 Mg PO BID 7 Days Reported Latuda (Lurasidone) 20 Mg Tab 20 Mg PO DAILY Suboxone Sublingual Film (Buprenorphine-Naloxone Sublingual Film) 8-2 Mg Film 1 Film SL Unique ID number required: Klonopin (Clonazepam) Unknown Strength Tab Unknown Dose PO BID Clonidine (Clonidine HCl) 0.1 Mg Tab 0.1 Mg PO BID Prozac (Fluoxetine HCl) 40 Mg Cap 40 Mg PO DAILY Review of Systems Except as stated in HPI: all other systems reviewed are Neg Physical Exam Narrative GENERAL: Well-nourished, well-developed female patient, ambulatory. Afebrile. SKIN: Focused skin assessment warm/dry. HEAD: Normocephalic. Atraumatic. EYES: No scleral icterus. No injection or drainage. NECK: Supple, trachea midline. No JVD or lymphadenopathy. CARDIOVASCULAR: Regular rate and rhythm without murmurs, gallops, or rubs. RESPIRATORY: Breath sounds equal bilaterally. No accessory muscle use. Lungs sounds are clear to auscultation. GASTROINTESTINAL: Abdomen soft, non-tender, nondistended. MUSCULOSKELETAL: No cyanosis, or edema. PSYCHIATRIC: No delusional thought processes. No hallucinations. Data Data Last Documented VS Vital Signs Date Time Temp Pulse Resp B/P (MAP) Pulse Ox O2 Delivery O2 Flow Rate FiO2 12/06/16 17:16 99.2 12/06/16 16:28 83 18 96 Room Air Orders Orders Complete Blood Count With Diff (12/06/16 14:38) Comprehensive Metabolic Panel (12/06/16 14:38) Urinalysis - C+S If Indicated (12/06/16 14:38) Psych Screen (12/06/16 14:38) Drug Screen, Random Urine (12/06/16 14:38) Alcohol (Ethanol) (12/06/16 14:38) Salicylates (Aspirin) (12/06/16 14:38) Tylenol (Acetaminophen) (12/06/16 14:38) Potassium Chloride (Kcl) (12/06/16 16:30) Diet Regular Basic (12/06/16 Dinner) Labs Laboratory Tests Test 12/06/16 14:50 White Blood Count 7.8 TH/MM3 Red Blood Count 4.29 MIL/MM3 Hemoglobin 12.9 GM/DL Hematocrit 38.2 % Mean Corpuscular Volume 89.0 FL Mean Corpuscular Hemoglobin 30.1 PG Mean Corpuscular Hemoglobin Concent 33.9 % Red Cell Distribution Width 13.7 % Platelet Count 268 TH/MM3 Mean Platelet Volume 8.8 FL Neutrophils (%) (Auto) 53.9 % Lymphocytes (%) (Auto) 33.1 % Monocytes (%) (Auto) 9.4 % Eosinophils (%) (Auto) 2.3 % Basophils (%) (Auto) 1.3 % Neutrophils # (Auto) 4.2 TH/MM3 Lymphocytes # (Auto) 2.6 TH/MM3 Monocytes # (Auto) 0.7 TH/MM3 Eosinophils # (Auto) 0.2 TH/MM3 Basophils # (Auto) 0.1 TH/MM3 CBC Comment DIFF FINAL Differential Comment Urine Color YELLOW Urine Turbidity CLEAR Urine pH 7.0 Urine Specific [place] 1.016 Urine Protein NEG mg/dL Urine Glucose (UA) NEG mg/dL Urine Ketones NEG mg/dL Urine Occult Blood SMALL Urine Nitrite NEG Urine Bilirubin NEG Urine Urobilinogen 2.0 MG/DL Urine Leukocyte Esterase NEG Urine RBC 2 /hpf Urine WBC 1 /hpf Urine Squamous Epithelial Cells 1 /hpf Urine Transitional Epithelial Cells <1 /hpf Microscopic Urinalysis Comment CULT NOT INDICATED Blood Urea Nitrogen 10 MG/DL Creatinine 0.64 MG/DL Random Glucose 106 MG/DL Total Protein 6.4 GM/DL Albumin 3.1 GM/DL Calcium Level 8.1 MG/DL Alkaline Phosphatase 69 U/L Aspartate Amino Transf (AST/SGOT) 11 U/L Alanine Aminotransferase (ALT/SGPT) 12 U/L Total Bilirubin 0.5 MG/DL Sodium Level 140 MEQ/L Potassium Level 3.3 MEQ/L Chloride Level 106 MEQ/L Carbon Dioxide Level 26.1 MEQ/L Anion Gap 8 MEQ/L Estimat Glomerular Filtration Rate 101 ML/MIN Salicylates Level LESS THAN 1.7 MG/DL Acetaminophen Level LESS THAN 2.0 MCG/ML Ethyl Alcohol Level LESS THAN 3 MG/DL MDM Medical Decision Making Medical Screen Exam Complete: Yes Emergency Medical Condition: Yes Medical Record Reviewed: Yes Differential Diagnosis Polysubstance abuse versus suicidal ideation versus depression Narrative Course 41-year-old female presents to the emergency department wanting detox from heroin and subsequent depression. CBC shows no acute abnormality. CMP shows hypokalemia at 3.3. Salicylate level is less than 1.7. Tylenol level is less than 2.0. Alcohol level is less than 3. UA is negative for acute infection. Patient is given potassium 20 mEq by mouth. Patient is medically cleared for psychiatric screening and disposition. Mental health screening discussed with the patient. Psychiatric screen ordered. Diagnosis Primary Impression: Polysubstance abuse Condition: Deanne Davis Dec 06, 2016 16:11
[2016-12-06 16:28] VITALS: BP 127/69; PULSE 83; RESP 18; O2SAT 96
[2016-12-06] MEDS ORDERED: POTASSIUM CHLORIDE 20 MEQ CONTROLLED RELEASE TAB PO ONE (16:30)
[2016-12-06 17:16] VITALS: TEMP 99.2
== END 2016-12-07 02:07 ==
LOC: NEPJ 14:31
DX: F19.10 Other psychoactive substance abuse, uncomplicated (principal); F31.9 Bipolar disorder, unspecified; F41.9 Anxiety disorder, unspecified; E87.6 Hypokalemia; F32.9 Major depressive disorder, single episode, unspecified
CPT/HCPCS: 80053; 80307; 81001; 85025; 99285

== ENCOUNTER 2017-03-12 09:49 | Emergency (ER) | payer SELFPAY ==
[~2017-03-12] VITALS: Ht 165.1 cm; Wt 62.0 kg
[2017-03-12] VITALS (9 sets, daily range): BP systolic 97–121; BP diastolic 53–79; PULSE 77–128; RESP 16–18; TEMP 97.7–98.5; O2SAT 77–98
[~2017-03-12 09:49] MED LIST changes: -CIPR-9 PO; -CLON.5 PO
[2017-03-12] MEDS ORDERED: SODIUM CHLOR 0.9% 1000 ML INJ 1,000 ML IV SCH (10:17)
--- NOTE | 2017-03-12 10:24 | PD ---
HPI Chief Complaint: Psychiatric Symptoms Time Seen by Provider: 10:17 Travel History International Travel<30 days: No Contact w/Intl Traveler<30days: No Traveled to known affect area: No History of Present Illness HPI Patient is brought in by swetha PATIÑO who apparently placed a Pollard act but also seems like the patient is on the rest of the officers sticking around and the patient is in handcuffs. Patient herself is not very communicative and has decided not to answer any of my questions. Of note the officer is at the foot of the bed. Per the Pollard act forearm apparently the patient took 10 Seroquel about an hour prior to arrival. Patient did decide to answer yes or no to list of questions for the associated factors. Patient is not sleepy and denies any nausea, vomiting, diarrhea, somnolence, dizziness, lightheadedness, PFSH Past Medical History Arthritis: No Asthma: No Blood Disorders: No Bipolar Disorder: Yes Anxiety: Yes Depression: Yes Heart Rhythm Problems: No High Cholesterol: No Chest Pain: No Congestive Heart Failure: No COPD: No Cerebrovascular Accident: No Diminished Hearing: No Endocrine: No Gastrointestinal Disorders: No GERD: No Genitourinary: No Hepatitis: No Hiatal Hernia: No Hypertension: No Immune Disorder: No Implanted Vascular Access Dvce: No Kidney Stones: No Musculoskeletal: No Neurologic: No Psychiatric: Yes Reproductive: No Respiratory: No Integumentary: Yes Migraines: Yes Myocardial Infarction: No Renal Failure: No Sleep Apnea: No Ulcer: No PNEUMOCCOCAL Vaccine (Year): 2 ?: Unknown Menopausal: No : 4 Para: 3 Miscarriage: 0 : 1 Past Surgical History Abdominal Surgery: No Appendectomy: No Cardiac Surgery: No Cholecystectomy: No Ear Surgery: No Endocrine Surgery: No Eye Surgery: No Genitourinary Surgery: No Gynecologic Surgery: No Neurologic Surgery: No Oral Surgery: No Thoracic Surgery: No Other Surgery: Yes (breast augmentation) Social History Alcohol Use: Yes Tobacco Use: Yes Substance Use: Yes Allergies-Medications (Allergen,Severity, Reaction): Coded Allergies: penicillin G (Verified Allergy, Severe, HIVES, 03/12/17) sulfamethoxazole (Verified Allergy, Severe, SWELLING AND HIVES, 03/12/17) trimethoprim (Verified Allergy, Severe, SWELLING AND HIVES, 03/12/17) Reported Meds & Prescriptions Reported Meds & Active Scripts Active Reported Latuda (Lurasidone) 20 Mg Tab 20 Mg PO DAILY Suboxone Sublingual Film (Buprenorphine-Naloxone Sublingual Film) 8-2 Mg Film 1 Film SL Unique ID number required: Clonidine (Clonidine HCl) 0.1 Mg Tab 0.1 Mg PO BID Prozac (Fluoxetine HCl) 40 Mg Cap 40 Mg PO DAILY Review of Systems Except as stated in HPI: all other systems reviewed are Neg General / Constitutional: No: Fever Eyes: No: Visual changes HENT: No: Headaches Cardiovascular: No: Chest Pain or Discomfort Respiratory: No: Shortness of Breath Gastrointestinal: No: Abdominal Pain Genitourinary: No: Dysuria Musculoskeletal: No: Pain Skin: No Rash Neurologic: No: Weakness Psychiatric: No: Depression Endocrine: No: Polydipsia Hematologic/Lymphatic: No: Easy Bruising Physical Exam Narrative GENERAL: SKIN: Warm and dry. HEAD: Atraumatic. Normocephalic. EYES: Pupils equal and round. No scleral icterus. No injection or drainage. ENT: No nasal bleeding or discharge. Mucous membranes pink and moist. NECK: Trachea midline. No JVD. CARDIOVASCULAR: Regular rate and rhythm. RESPIRATORY: No accessory muscle use. Clear to auscultation. Breath sounds equal bilaterally. GASTROINTESTINAL: Abdomen soft, non-tender, nondistended. Hepatic and splenic margins not palpable. MUSCULOSKELETAL: Extremities without clubbing, cyanosis, or edema. No obvious deformities. NEUROLOGICAL: Awake and alert. No obvious cranial nerve deficits. Motor grossly within normal limits. Five out of 5 muscle strength in the arms and legs. Normal speech. PSYCHIATRIC: Appropriate mood and affect; insight and judgment normal. Data Data Last Documented VS Vital Signs Date Time Temp Pulse Resp B/P (MAP) Pulse Ox O2 Delivery O2 Flow Rate FiO2 03/12/17 10:52 116 18 115/76 (89) 98 Room Air 03/12/17 10:03 97.8 Orders Orders Complete Blood Count With Diff (03/12/17 10:17) Comprehensive Metabolic Panel (03/12/17 10:17) Thyroid Stimulating Hormone (03/12/17 10:17) Ed Urine Pregnancytest Poc (03/12/17 10:17) Electrocardiogram (03/12/17 10:17) Oximetry (03/12/17 10:17) Iv Access Insert/Monitor (03/12/17 10:17) Ecg Monitoring (03/12/17 10:17) Psych Screen (03/12/17 10:17) Drug Screen, Random Urine (03/12/17 10:17) Alcohol (Ethanol) (03/12/17 10:17) Salicylates (Aspirin) (03/12/17 10:17) Tylenol (Acetaminophen) (03/12/17 10:17) Creatine Kinase (Cpk) (03/12/17 10:17) Sodium Chlor 0.9% 1000 Ml Inj (Ns 1000 M (03/12/17 10:17) Labs Laboratory Tests Test 03/12/17 10:26 03/12/17 10:40 White Blood Count 7.7 TH/MM3 Red Blood Count 4.71 MIL/MM3 Hemoglobin 14.1 GM/DL Hematocrit 40.6 % Mean Corpuscular Volume 86.1 FL Mean Corpuscular Hemoglobin 29.9 PG Mean Corpuscular Hemoglobin Concent 34.7 % Red Cell Distribution Width 15.4 % Platelet Count 324 TH/MM3 Mean Platelet Volume 8.2 FL Neutrophils (%) (Auto) 74.0 % Lymphocytes (%) (Auto) 17.9 % Monocytes (%) (Auto) 5.9 % Eosinophils (%) (Auto) 1.3 % Basophils (%) (Auto) 0.9 % Neutrophils # (Auto) 5.7 TH/MM3 Lymphocytes # (Auto) 1.4 TH/MM3 Monocytes # (Auto) 0.5 TH/MM3 Eosinophils # (Auto) 0.1 TH/MM3 Basophils # (Auto) 0.1 TH/MM3 CBC Comment DIFF FINAL Differential Comment Blood Urea Nitrogen 13 MG/DL Creatinine 0.79 MG/DL Random Glucose 121 MG/DL Total Protein 7.7 GM/DL Albumin 3.2 GM/DL Calcium Level 8.8 MG/DL Alkaline Phosphatase 99 U/L Aspartate Amino Transf (AST/SGOT) 44 U/L Alanine Aminotransferase (ALT/SGPT) 69 U/L Total Bilirubin 0.8 MG/DL Sodium Level 138 MEQ/L Potassium Level 3.6 MEQ/L Chloride Level 105 MEQ/L Carbon Dioxide Level 25.1 MEQ/L Anion Gap 8 MEQ/L Estimat Glomerular Filtration Rate 79 ML/MIN Total Creatine Kinase 77 U/L Thyroid Stimulating Hormone 3rd Gen 0.235 uIU/ML Salicylates Level 1.8 MG/DL Acetaminophen Level LESS THAN 2.0 MCG/ML Ethyl Alcohol Level LESS THAN 3 MG/DL Urine Opiates Screen NEG Urine Barbiturates Screen NEG Urine Amphetamines Screen NEG Urine Benzodiazepines Screen POS Urine Cocaine Screen POS Urine Cannabinoids Screen NEG MDM Medical Decision Making Medical Screen Exam Complete: Yes Emergency Medical Condition: Yes Medical Record Reviewed: Yes Differential Diagnosis electrolyte abnl v substance use Narrative Course No evidence of prolonged QT, no evidence of any hypotension, no evidence of any somnolence, and no evidence of any rhabdomyolysis at this time. The patient's screening TSH was abnormally low suggestive for possible hyperthyroid type of syndrome which should be further evaluated by her pcp... Tox screen positive for cocaine and benzos. Diagnosis Primary Impression: Medical clearance for psychiatric admission Admitting Information Admitting Physician Requests: Angel Sanchez MD Mar 12, 2017 10:24
[2017-03-12 10:39] LABS: AUTOMATED NEUTROPHIL # 5.7 TH/MM3 (1.8-7.7); BASOPHIL # 0.1 TH/MM3 (0-0.2); BASOPHIL % 0.9 % (0.0-2.0); EOSINOPHIL # 0.1 TH/MM3 (0-0.4); EOSINOPHIL % 1.3 % (0.0-4.0); HEMATOCRIT 40.6 % (35.0-46.0); HEMOGLOBIN 14.1 GM/DL (11.6-15.3); LYMPH % 17.9 % (9.0-44.0); LYMPHOCYTE # 1.4 TH/MM3 (1.0-4.8); MEAN CELL VOLUME 86.1 FL (80.0-100.0); MEAN CORPUSCULAR HEMOGLOBIN 29.9 PG (27.0-34.0); MEAN CORPUSCULAR HGB CONC 34.7 % (32.0-36.0); MEAN PLATELET VOLUME 8.2 FL (7.0-11.0); MONO % 5.9 % (0.0-8.0); MONOCYTE # 0.5 TH/MM3 (0-0.9); PLATELET COUNT 324 TH/MM3 (150-450); RED BLOOD COUNT 4.71 MIL/MM3 (4.00-5.30); RED CELL DISTRIBUTION WIDTH 15.4 % (11.6-17.2); WHITE BLOOD COUNT 7.7 TH/MM3 (4.0-11.0)
[2017-03-12 11:00] LABS: ALBUMIN 3.2 GM/DL (3.4-5.0); ALT (GPT) 69 U/L (10-53); AST (GOT) 44 U/L (15-37); BICARBONATE 25.1 MEQ/L (21.0-32.0); BLOOD UREA NITROGEN 13 MG/DL (7-18); CALCIUM 8.8 MG/DL (8.5-10.1); CHLORIDE 105 MEQ/L (98-107); CREATININE 0.79 MG/DL (0.50-1.00); GLOMERULAR FILTRATION RATE 79 ML/MIN (>89); GLUCOSE,RANDOM 121 MG/DL (74-106); SODIUM (NA) 138 MEQ/L (136-145)
[2017-03-12 11:11] LABS: ACETAMINOPHEN LESS THAN 2.0 MCG/ML (10.0-30.0); ALKALINE PHOSPHATASE 99 U/L (45-117); TOTAL BILIRUBIN ADULT 0.8 MG/DL (0.2-1.0); TOTAL PROTEIN 7.7 GM/DL (6.4-8.2)
--- NOTE | 2017-03-12 21:55 | EKG ---
Date Performed: 03/12/2017 Time Performed: 10:07:31 PTAGE: 42 years EKG: SINUS TACHYCARDIA WITH SHORT MA INTERVAL NONSPECIFIC T-WAVE ABNORMALITY ABNORMAL RHYTHM ECG PREVIOUS TRACING : 08/18/2015 11.38 DOCTOR: Alison Rosa Interpretating Date/Time 03/12/2017 21:52:33
[2017-03-13 03:12] VITALS: BP 140/96; PULSE 83; RESP 18; TEMP 100.1; O2SAT 98
[2017-03-13 06:32] VITALS: BP 132/85; PULSE 82; RESP 18; O2SAT 98
[2017-03-13 11:40] VITALS: BP 129/76; PULSE 78; RESP 16; O2SAT 98
--- NOTE | 2017-03-13 12:01 | PD ---
History of Present Illness Chief Complaint: Psychiatric Symptoms Time Seen by Provider: 11:45 Travel History International Travel<30 Days: No Contact w/Intl Traveler<30days: No Known affected area: No Legal Status Legal Status: Pollard Act Pollard Act Signed By: Maude Nash History of Present Illness: History of Present Illness Patient is a 42-year-old female with reported history of bipolar disorder and substance use disorder who is brought in by [facility] under a Pollard act after she reported that she had overdosed on some pills with the intent of ending her life. Upon arrival to the ED the patient was only minimally cooperative with evaluation. The patient was monitored in secure environment and presented no suicidality and no behavioral disturbances. Electronic medical record is reviewed the patient has been seen previously in the emergency department with substance use related issues. Her last admission to inpatient psychiatry was in 2016 for treatment of bipolar disorder, suicidal ideation in context of substance abuse. Her current toxicology is positive for cocaine and benzos. This morning the patient is more cooperative with evaluation. She is alert and oriented, maintaining basic hygiene. No evidence of any psychosis, no josé miguel or hypomania. The patient states that she went to [place] for substance abuse treatment but was not admitted at the facility because she had a infection under her breast. She states she came to [facility] for treatment of such. She further states that she has a bed available in [place] at [facility] for substance abuse and that's where she would like to go. The patient is not suicidal and not homicidal. She is cognitively intact. She is future oriented and wants transportation to [place]. PFSH Past Medical History Arthritis: No Asthma: No Blood Disorders: No Bipolar Disorder: Yes Anxiety: Yes Depression: Yes Heart Rhythm Problems: No High Cholesterol: No Chest Pain: No Congestive Heart Failure: No COPD: No Cerebrovascular Accident: No Diminished Hearing: No Endocrine: No Gastrointestinal Disorders: No GERD: No Genitourinary: No Hepatitis: No Hiatal Hernia: No Hypertension: No Immune Disorder: No Implanted Vascular Access Dvce: No Kidney Stones: No Musculoskeletal: No Neurologic: No Psychiatric: Yes Reproductive: No Respiratory: No Integumentary: Yes Migraines: Yes Myocardial Infarction: No Renal Failure: No Sleep Apnea: No Ulcer: No Tetanus Vaccination: > 5 Years Influenza Vaccination: No PNEUMOCCOCAL Vaccine (Year): 2 ?: Unknown Menopausal: No : 4 Para: 3 Miscarriage: 0 : 1 Past Surgical History Abdominal Surgery: No Appendectomy: No Cardiac Surgery: No Cholecystectomy: No Ear Surgery: No Endocrine Surgery: No Eye Surgery: No Genitourinary Surgery: No Gynecologic Surgery: No Neurologic Surgery: No Oral Surgery: No Thoracic Surgery: No Other Surgery: Yes (breast augmentation) Psychiatric History Psychiatric History Hx Psychiatric Treatment: Has received psychiatric treatment in the past at [facility]. Last time she was on psychiatric medications was approximately 1-1/2 years ago. History of Inpatient Treatment: Yes ([facility] Guns or firearms in home: No Social History Single, homeless female. Hx Alcohol Use: Yes (OCASSIONALLY) Hx Tobacco Use: Yes (OCASSIONALLY) Hx Substance Use: Yes Substance Use Type: Benzos (Valium,Xanax), Cocaine, Synth Opiates-Pain Pills Other Substances Used: Patient states she takes drugs to make herself feel better. Hx of Substance Use Treatment: Yes Family Psychiatric History Negative Allergies-Medications (Allergen,Severity, Reaction): Coded Allergies: penicillin G (Verified Allergy, Severe, HIVES, 03/12/17) sulfamethoxazole (Verified Allergy, Severe, SWELLING AND HIVES, 03/12/17) trimethoprim (Verified Allergy, Severe, SWELLING AND HIVES, 03/12/17) Reported Meds & Prescriptions Reported Meds & Active Scripts Active Reported Latuda (Lurasidone) 20 Mg Tab 20 Mg PO DAILY Suboxone Sublingual Film (Buprenorphine-Naloxone Sublingual Film) 8-2 Mg Film 1 Film SL Unique ID number required: Clonidine (Clonidine HCl) 0.1 Mg Tab 0.1 Mg PO BID Prozac (Fluoxetine HCl) 40 Mg Cap 40 Mg PO DAILY Review of Systems Psychiatric: DENIES: Anxiety, Confusion, Mood changes, Depression, Hallucinations, Agitation, Suicidal Ideation, Homicidal Ideation, Delusions Except as stated in HPI: all other systems reviewed are Neg Mental Status Examination Appearance: Appropriate (In [facility]) Consciousness: Alert Orientation: x4 Motor Activity: Normal gait Speech: Unremarkable Language: Adequate Fund of Knowledge: Adequate Attention and Concentration: Adequate Memory: Unremarkable Mood: Sad Affect: Appropriate Thought Process & Associations: Intact, Logical, Goal directed Thought Content: Appropriate Hallucination Type: None Delusion Type: None Suicidal Ideation: No Suicidal Plan: No Suicidal Intention: No Homicidal Ideation: No Homicidal Plan: No Homicidal Intention: No Insight: Adequate Judgment: Adequate MDM Medical Decision Making Medical Record Reviewed: Yes Assessment/Plan History of Present Illness 42-year-old female with history of bipolar disorder, substance use disorder who presents to [facility] under Pollard act initiated by lawn care specialist. The patient reported to officers that she had overdosed on some pills with the intention of wanting to end her life. The patient was monitored in secure environment and presented no suicidality. She presented no evidence of any unstable mental illness at this time. The patient reports that she was seeking admission to a substance abuse treatment facility but was found to have a rash and was sent to the hospital for medical clearance. However she did not inform anyone about this last night. At this time the patient is not psychotic , not suicidal or homicidal, she is requesting transportation to [place] because she has a bed awaiting for her at a treatment facility there. The patient is informed that we will not be able to transport her to [place] but we will provide her with some bus passes so that she can at least get to [facility] for treatment of her substance abuse. At this time the patient does not meet criteria for Pollard act. The Pollard act is lifted. Psychiatrically clear for discharge from ED. Orders Orders Diet Regular Basic (03/12/17 Dinner) Diet Regular Basic (03/13/17 Breakfast) Diet Regular Basic (03/13/17 Lunch) Results Vital Signs Date Time Temp Pulse Resp B/P (MAP) Pulse Ox O2 Delivery O2 Flow Rate FiO2 03/13/17 11:40 78 16 129/76 (93) 98 Room Air 03/13/17 06:32 82 18 132/85 (101) 98 03/13/17 03:12 100.1 83 18 140/96 (111) 98 Room Air 03/12/17 22:05 98.2 77 18 97/55 (69) 95 Room Air 03/12/17 19:38 98.5 91 18 108/53 (71) 95 Room Air 03/12/17 17:00 97.8 98 16 118/73 (88) 98 Room Air 03/12/17 13:21 97.8 106 16 108/77 (87) 98 Room Air Diagnosis Primary Impression: Cocaine use disorder, moderate, dependence Additional Impression: Substance induced mood disorder Psychiatrically Cleared: Yes Med/ Other Pt Specific Info: No Change to Meds Disposition: 01 DISCHARGE HOME Condition: Stable Problem Qualifiers Roma Jaramillo Mar 13, 2017 12:01
--- NOTE | 2017-03-13 12:21 | PD ---
Physical Exam Time Seen by Provider: 12:19 SAUNDRA Lindsey has evaluated the patient, lifted the Pollard act and cleared the patient for discharge. Data Data Last Documented VS Vital Signs Date Time Temp Pulse Resp B/P (MAP) Pulse Ox O2 Delivery O2 Flow Rate FiO2 03/13/17 11:40 78 16 129/76 (93) 98 Room Air 03/13/17 03:12 100.1 Orders Orders Complete Blood Count With Diff (03/12/17 10:17) Comprehensive Metabolic Panel (03/12/17 10:17) Thyroid Stimulating Hormone (03/12/17 10:17) Ed Urine Pregnancytest Poc (03/12/17 10:17) Electrocardiogram (03/12/17 10:17) Oximetry (03/12/17 10:17) Iv Access Insert/Monitor (03/12/17 10:17) Ecg Monitoring (03/12/17 10:17) Psych Screen (03/12/17 10:17) Drug Screen, Random Urine (03/12/17 10:17) Alcohol (Ethanol) (03/12/17 10:17) Salicylates (Aspirin) (03/12/17 10:17) Tylenol (Acetaminophen) (03/12/17 10:17) Creatine Kinase (Cpk) (03/12/17 10:17) Sodium Chlor 0.9% 1000 Ml Inj (Ns 1000 M (03/12/17 10:17) Diet Regular Basic (03/12/17 Dinner) Diet Regular Basic (03/13/17 Breakfast) Diet Regular Basic (03/13/17 Lunch) Labs Laboratory Tests Test 03/12/17 10:26 03/12/17 10:40 White Blood Count 7.7 TH/MM3 Red Blood Count 4.71 MIL/MM3 Hemoglobin 14.1 GM/DL Hematocrit 40.6 % Mean Corpuscular Volume 86.1 FL Mean Corpuscular Hemoglobin 29.9 PG Mean Corpuscular Hemoglobin Concent 34.7 % Red Cell Distribution Width 15.4 % Platelet Count 324 TH/MM3 Mean Platelet Volume 8.2 FL Neutrophils (%) (Auto) 74.0 % Lymphocytes (%) (Auto) 17.9 % Monocytes (%) (Auto) 5.9 % Eosinophils (%) (Auto) 1.3 % Basophils (%) (Auto) 0.9 % Neutrophils # (Auto) 5.7 TH/MM3 Lymphocytes # (Auto) 1.4 TH/MM3 Monocytes # (Auto) 0.5 TH/MM3 Eosinophils # (Auto) 0.1 TH/MM3 Basophils # (Auto) 0.1 TH/MM3 CBC Comment DIFF FINAL Differential Comment Blood Urea Nitrogen 13 MG/DL Creatinine 0.79 MG/DL Random Glucose 121 MG/DL Total Protein 7.7 GM/DL Albumin 3.2 GM/DL Calcium Level 8.8 MG/DL Alkaline Phosphatase 99 U/L Aspartate Amino Transf (AST/SGOT) 44 U/L Alanine Aminotransferase (ALT/SGPT) 69 U/L Total Bilirubin 0.8 MG/DL Sodium Level 138 MEQ/L Potassium Level 3.6 MEQ/L Chloride Level 105 MEQ/L Carbon Dioxide Level 25.1 MEQ/L Anion Gap 8 MEQ/L Estimat Glomerular Filtration Rate 79 ML/MIN Total Creatine Kinase 77 U/L Thyroid Stimulating Hormone 3rd Gen 0.235 uIU/ML Salicylates Level 1.8 MG/DL Acetaminophen Level LESS THAN 2.0 MCG/ML Ethyl Alcohol Level LESS THAN 3 MG/DL Urine Opiates Screen NEG Urine Barbiturates Screen NEG Urine Amphetamines Screen NEG Urine Benzodiazepines Screen POS Urine Cocaine Screen POS Urine Cannabinoids Screen NEG MDM Supervised Visit with BENITA: No Narrative Course SAUNDRA Brandon has evaluated the patient, lifted the [place] act and cleared the patient for discharge. Patient contracts safety. Denies suicidal or homicidal ideations. Patient will be provided community resource packet to [facility] for follow-up. Has friends and family for support. Patient was medically cleared by alternate provider prior to psych screening. Patient has been evaluated by psychiatry and and is now cleared for discharge. Diagnosis Primary Impression: Substance induced mood disorder Additional Impression: Cocaine use disorder, moderate, dependence Referrals: [facility] (Out patient) [facility] Primary Care Physician Psychiatrist Christin PARDO Behavior[facility] Patient Instructions: Cocaine Abuse (ED), General Instructions, Mood Disorders (ED), Polysubstance Abuse (ED) Additional Instruction: Contract safety to your self and others Stop using drugs Follow-up with psychiatry Follow-up with primary care provider Follow-up with Talat Carrizales/[facility] Return to the emergency department immediately with worsening of symptoms Med/Other Pt SpecificInfo: No Change to Meds, No Meds Exist/No RX given Disposition: 01 DISCHARGE HOME Condition: Stable Rassi,Jessica K [employer]AMP MAINTENANCE SUPERVISOR Mar 13, 2017 12:21
== END 2017-03-13 12:46 | disposition home or self-care (01) ==
LOC: NEPC 09:49 → NEPJ 03-13 12:46
DX: F14.24 Cocaine dependence with cocaine-induced mood disorder (principal); F31.9 Bipolar disorder, unspecified; Z72.0 Tobacco use; Z79.899 Other long term (current) drug therapy
CPT/HCPCS: 80053; 80307; 82550; 84443; 84703; 85025; 93005; 96360; 99284; J7030

== ENCOUNTER 2017-03-27 12:48 | Emergency (ER) | payer SELFPAY ==
[~2017-03-27] VITALS: Ht 154.9 cm; Wt 50.0 kg
[2017-03-27 12:49] VITALS: BP 140/81; PULSE 98; RESP 18; TEMP 98.1; O2SAT 99
[2017-03-27 14:02] LABS: AUTOMATED NEUTROPHIL # 6.1 TH/MM3 (1.8-7.7); BASOPHIL # 0.1 TH/MM3 (0-0.2); BASOPHIL % 1.2 % (0.0-2.0); EOSINOPHIL # 0.1 TH/MM3 (0-0.4); EOSINOPHIL % 1.2 % (0.0-4.0); HEMOGLOBIN 14.2 GM/DL (11.6-15.3); LYMPHOCYTE # 2.2 TH/MM3 (1.0-4.8); MEAN CELL VOLUME 86.1 FL (80.0-100.0); MEAN CORPUSCULAR HEMOGLOBIN 29.1 PG (27.0-34.0); MEAN CORPUSCULAR HGB CONC 33.8 % (32.0-36.0); MONO % 6.6 % (0.0-8.0); MONOCYTE # 0.6 TH/MM3 (0-0.9); PLATELET COUNT 317 TH/MM3 (150-450); RED BLOOD COUNT 4.88 MIL/MM3 (4.00-5.30); RED CELL DISTRIBUTION WIDTH 15.1 % (11.6-17.2); WHITE BLOOD COUNT 9.2 TH/MM3 (4.0-11.0)
[2017-03-27 14:04] LABS: BACTERIA, URINE RARE /hpf; BILIRUBIN, URINE NEG (NEG); BLOOD, URINE SMALL (NEG); GLUCOSE,URINE NEG (NEG); KETONE, URINE NEG (NEG); MUCUS URINE MOD /lpf (OCC); NITRITE,URINE NEG (NEG); SQUAMOUS EPITHELIAL CELL URINE 21 /hpf (0-5); TRANSITIONAL EPI CELLS, URINE <1 /hpf; URINE COLOR YELLOW (YELLW/STRAW); URINE LEUKOCYTE ESTERASE MOD (NEG)
[2017-03-27 14:12] LABS: ALBUMIN 3.3 GM/DL (3.4-5.0); ALT (GPT) 121 U/L (10-53); AST (GOT) 77 U/L (15-37); BICARBONATE 29.3 MEQ/L (21.0-32.0); BLOOD UREA NITROGEN 9 MG/DL (7-18); CALCIUM 8.6 MG/DL (8.5-10.1); CHLORIDE 106 MEQ/L (98-107); CREATININE 0.78 MG/DL (0.50-1.00); GLOMERULAR FILTRATION RATE 80 ML/MIN (>89); GLUCOSE,RANDOM 125 MG/DL (74-106); SODIUM (NA) 140 MEQ/L (136-145)
[2017-03-27 14:21] LABS: ALKALINE PHOSPHATASE 116 U/L (45-117); TOTAL BILIRUBIN ADULT 0.4 MG/DL (0.2-1.0); TOTAL PROTEIN 7.6 GM/DL (6.4-8.2)
[2017-03-27] MEDS ORDERED: hydrOXYzine PAMOATE 25 MG CAP PO ONE (14:45)
[2017-03-27] MEDS ORDERED: ONDANSETRON ODT 4 MG TAB PO ONE (14:45)
--- NOTE | 2017-03-27 14:55 | PD ---
HPI Chief Complaint: Psychiatric Symptoms Time Seen by Provider: 14:33 Travel History International Travel<30 days: No Contact w/Intl Traveler<30days: No Traveled to known affect area: No History of Present Illness HPI 42-year-old female presents to the emergency Department with complaint of withdrawing from heroin and Xanax 2 days. Reports IV drug use. Reports suicidal ideation 24 hours. Sensory plan is to take her bottle of Seroquel. Reports history of attempting suicide by taking her Seroquel 2 weeks ago. Denies auditory or visual hallucinations. Reports injecting IV drugs into her right breast about a month ago and was seen in [place] and put on clindamycin; says she thinks there is still infection in the right breast. She said she lost her prescription and were completed the antibiotics. Denies EtOH. Denies fever, vomiting. Denies chest pain, shortness of breath. Reports body aches, stomach cramping, feeling restless. Unknown duration. Unknown onset. No known aggravating or relieving factors. Symptoms are moderate to severe in severity. Allergies to Bactrim and penicillin. No primary care provider. History of bipolar disorder. History of hepatitis C. Denies other significant past medical history. Has not medical complaints. No other modifying factors or associated signs and symptoms. PFSH Past Medical History Arthritis: No Asthma: No Blood Disorders: No Bipolar Disorder: Yes Anxiety: Yes Depression: Yes Heart Rhythm Problems: No High Cholesterol: No Chest Pain: No Congestive Heart Failure: No COPD: No Cerebrovascular Accident: No Diminished Hearing: No Endocrine: No Gastrointestinal Disorders: No GERD: No Genitourinary: No Hepatitis: No Hiatal Hernia: No Hypertension: No Immune Disorder: No Implanted Vascular Access Dvce: No Kidney Stones: No Musculoskeletal: No Neurologic: No Psychiatric: Yes Reproductive: No Respiratory: No Integumentary: Yes Migraines: Yes Myocardial Infarction: No Renal Failure: No Sleep Apnea: No Ulcer: No PNEUMOCCOCAL Vaccine (Year): 2 ?: Not LMP: unsure Menopausal: No : 4 Para: 3 Miscarriage: 0 : 1 Past Surgical History Abdominal Surgery: No Appendectomy: No Cardiac Surgery: No Cholecystectomy: No Ear Surgery: No Endocrine Surgery: No Eye Surgery: No Genitourinary Surgery: No Gynecologic Surgery: No Neurologic Surgery: No Oral Surgery: No Thoracic Surgery: No Other Surgery: Yes (breast augmentation) Social History Alcohol Use: Yes (OCASSIONALLY) Tobacco Use: Yes (OCASSIONALLY) Substance Use: Yes Allergies-Medications (Allergen,Severity, Reaction): Coded Allergies: penicillin G (Verified Allergy, Severe, HIVES, 03/12/17) sulfamethoxazole (Verified Allergy, Severe, SWELLING AND HIVES, 03/12/17) trimethoprim (Verified Allergy, Severe, SWELLING AND HIVES, 03/12/17) Reported Meds & Prescriptions Reported Meds & Active Scripts Active Clindamycin (Clindamycin HCl) 150 Mg Cap 450 Mg PO Q6H 10 Days Reported Latuda (Lurasidone) 20 Mg Tab 20 Mg PO DAILY Suboxone Sublingual Film (Buprenorphine-Naloxone Sublingual Film) 8-2 Mg Film 1 Film SL Unique ID number required: Clonidine (Clonidine HCl) 0.1 Mg Tab 0.1 Mg PO BID Prozac (Fluoxetine HCl) 40 Mg Cap 40 Mg PO DAILY Review of Systems Except as stated in HPI: all other systems reviewed are Neg Physical Exam Narrative GENERAL: Well-nourished, well-developed female patient, in no acute distress; afebrile, nontoxic-appearing SKIN: Warm and dry. HEAD: Atraumatic. Normocephalic. EYES: Pupils equal and round. ENT: Mucosa pink and moist. NECK: Supple. Trachea midline. BREAST: Palpable lump to right breast at approximately the 6o'colock to 9o' clock position; area is with tenderness on palpation; breast is with minimal erythema and edema; without drainage; no fluctuance; area is firm to palpation. No nipple discharge. No skin dimpling. CARDIOVASCULAR: Regular rate and rhythm. No murmur appreciated. RESPIRATORY: No accessory muscle use. Clear to auscultation. Breath sounds equal bilaterally. GASTROINTESTINAL: Abdomen soft, non-tender, nondistended. Hepatic and splenic margins not palpable. Bowel sounds are active 4 quadrants. MUSCULOSKELETAL: No obvious deformities. No clubbing. No cyanosis. No edema. BACK: No CVA tenderness. NEUROLOGICAL: Awake and alert. Oriented 3. No obvious cranial nerve deficits. Motor grossly within normal limits. Normal speech. Moves all extremities. 5/5 strength to all extremities. PSYCHIATRIC: No delusional thought processes. No hallucinations. Data Data Last Documented VS Vital Signs Date Time Temp Pulse Resp B/P (MAP) Pulse Ox O2 Delivery O2 Flow Rate FiO2 2/21/18 06:00 80 16 123/74 (90) 99 Room Air 03/27/17 12:49 98.1 Orders Orders Complete Blood Count With Diff (03/27/17 12:59) Comprehensive Metabolic Panel (03/27/17 12:59) Thyroid Stimulating Hormone (03/27/17 12:59) Urinalysis - C+S If Indicated (03/27/17 12:59) Ed Urine Pregnancytest Poc (03/27/17 12:59) Psych Screen (03/27/17 12:59) Drug Screen, Random Urine (03/27/17 12:59) Alcohol (Ethanol) (03/27/17 12:59) Electrocardiogram (03/27/17 ) Us Breast Unilateral (03/27/17 ) Hydroxyzine Pamoate (Vistaril) (03/27/17 14:45) Ondansetron Odt (Zofran Odt) (03/27/17 14:45) Asp:No Reaction To [place]/Vanc (Asp Crit (03/27/17 17:45) Asp: Does Not Meet Inpt Admit (Asp Crit: (03/27/17 17:45) Asp: Iv Antibiotics Admit Only (Asp Crit (03/27/17 17:45) Asp: Location Of [place] Admin (Asp Crit: (03/27/17 17:45) [facility] ([facility] (03/27/17 17:45) Dalbavancin Inj (Dalvance Inj) (03/27/17 17:45) Ondansetron Odt (Zofran Odt) (03/28/17 06:15) Hydroxyzine Pamoate (Vistaril) (03/28/17 06:15) Clonidine (Catapres) (03/28/17 06:15) Diet Regular Basic (03/28/17 Breakfast) Clindamycin (Cleocin) (03/28/17 07:00) Labs Laboratory Tests Test 03/27/17 13:22 03/27/17 13:26 White Blood Count 9.2 TH/MM3 Red Blood Count 4.88 MIL/MM3 Hemoglobin 14.2 GM/DL Hematocrit 42.0 % Mean Corpuscular Volume 86.1 FL Mean Corpuscular Hemoglobin 29.1 PG Mean Corpuscular Hemoglobin Concent 33.8 % Red Cell Distribution Width 15.1 % Platelet Count 317 TH/MM3 Mean Platelet Volume 9.0 FL Neutrophils (%) (Auto) 67.0 % Lymphocytes (%) (Auto) 24.0 % Monocytes (%) (Auto) 6.6 % Eosinophils (%) (Auto) 1.2 % Basophils (%) (Auto) 1.2 % Neutrophils # (Auto) 6.1 TH/MM3 Lymphocytes # (Auto) 2.2 TH/MM3 Monocytes # (Auto) 0.6 TH/MM3 Eosinophils # (Auto) 0.1 TH/MM3 Basophils # (Auto) 0.1 TH/MM3 CBC Comment DIFF FINAL Differential Comment Blood Urea Nitrogen 9 MG/DL Creatinine 0.78 MG/DL Random Glucose 125 MG/DL Total Protein 7.6 GM/DL Albumin 3.3 GM/DL Calcium Level 8.6 MG/DL Alkaline Phosphatase 116 U/L Aspartate Amino Transf (AST/SGOT) 77 U/L Alanine Aminotransferase (ALT/SGPT) 121 U/L Total Bilirubin 0.4 MG/DL Sodium Level 140 MEQ/L Potassium Level 3.7 MEQ/L Chloride Level 106 MEQ/L Carbon Dioxide Level 29.3 MEQ/L Anion Gap 5 MEQ/L Estimat Glomerular Filtration Rate 80 ML/MIN Thyroid Stimulating Hormone 3rd Gen 0.203 uIU/ML Ethyl Alcohol Level LESS THAN 3 MG/DL Urine Color YELLOW Urine Turbidity HAZY Urine pH 6.0 Urine Specific [place] 1.031 Urine Protein 30 mg/dL Urine Glucose (UA) NEG mg/dL Urine Ketones NEG mg/dL Urine Occult Blood SMALL Urine Nitrite NEG Urine Bilirubin NEG Urine Urobilinogen 2.0 MG/DL Urine Leukocyte Esterase MOD Urine RBC 2 /hpf Urine WBC 4 /hpf Urine Squamous Epithelial Cells 21 /hpf Urine Transitional Epithelial Cells <1 /hpf Urine Bacteria RARE /hpf Urine Mucus MOD /lpf Microscopic Urinalysis Comment CULT NOT INDICATED Urine Opiates Screen POS Urine Barbiturates Screen NEG Urine Amphetamines Screen NEG Urine Benzodiazepines Screen POS Urine Cocaine Screen POS Urine Cannabinoids Screen NEG MDM Medical Decision Making Medical Screen Exam Complete: Yes Emergency Medical Condition: Yes Medical Record Reviewed: Yes Differential Diagnosis Polysubstance abuse, drug withdrawal, suicidal ideation, breast abscess Narrative Course 42-year-old female presents voluntarily for suicidal ideation and complaining of withdrawal from heroin and Xanax 2 days. Patient is afebrile and nontoxic- appearing. Denies fever, vomiting. CBC, CMP, TSH, urinalysis, UPT, drug screen , EKG ordered in triage. Apparently the patient was complaining of chest pain in triage, but she denies chest pain at this time. She said she wasn't having chest pain in the waiting room either, she just wanted to get back to be seen. EKG was normal sinus rhythm and without ST elevation or depression; reviewed by Dr. Lee. CBC unremarkable. AST and ALT elevated; positive history of hepatitis C. TSH 0.203. Urinalysis and UPT negative. Positive for opiates, benzodiazepines, cocaine. I offered patient Toradol, Tylenol or ibuprofen for pain and she declined. Patient requesting narcotics for pain and Ativan for her anxiety. Right breast ultrasound, Claritza Mcgee ordered. 1740: Right breast ultrasound concluded: Breast Ultrasound 03/27/17 0000 Signed Impressions: Service Date/Time: Monday, March 27, 2017 15:24 - CONCLUSION: 1. 5.9 cm area of decreased echogenicity and increased flow by color Doppler in the 6: 2. 00 region of the right breast correlating to an area of redness and pain. While this does not diagnostic, the features would be compatible with an abscess. 3. Please note that this examination is not performed for the purposes of breast cancer detection. No BI-RADS assessment is made. 4. The sonographic abnormality should be followed for resolution after treatment. Baljinder Al MD Discussed the findings with the patient and recommended for the abscess to be drained by general surgery. The patient refuses for the abscess to be drained. I discussed worsening of the area without incision and drainage and discussed worsening of area and infection, and possibility and signs and symptoms of sepsis without I&D. She agrees to antibiotics only. Dalvance ordered. Dalvance will be administered and the patient will be medically cleared to see psychiatry. 1845: Patient refusing Dalvance. A prescription for clindamycin will be provided for outpatient. She is medically cleared to see psychiatry. 03/28/2017: Patient remains in ER for psych evaluation. Clindamycin ordered. Diagnosis Primary Impression: Encounter for psychological evaluation Additional Impressions: Polysubstance abuse Abscess of right breast Referrals: [facility] General Surgeon Primary Care Physician Patient Instructions: Abscess (ED), Abscess Follow-up (ED), Abscess Incision and Drainage (GEN), General Instructions Additional Instructions: You were given Dalvance in the ER; you do not need to continue antibiotics after discharge from the ER Follow-up with general surgeon for incision and drainage of abscess Return to the emergency department immediately with worsening of symptoms Med/Other Pt SpecificInfo: Prescription(s) given Scripts Clindamycin (Clindamycin) 150 Mg Cap 450 MG PO Q6H for Infection for 10 Days, #120 CAP 0 Refills Prov: Jessica Dacosta 03/27/17 Condition: Stable Jessica Dacosta Mar 27, 2017 14:55
--- NOTE | 2017-03-27 16:25 | RADRPT ---
EXAM DATE/TIME: 03/27/2017 15:24 [place] COMPARISON: No previous studies available for comparison. INDICATIONS : Abscess. MEDICAL HISTORY : Depression. Anxiety. Pscychiatric problems. Substance Abuse. SURGICAL HISTORY : Breast augmentation. ENCOUNTER: Initial ACUITY: 1 month PAIN SCORE: 8/10 LOCATION: Right breast. FINDINGS: Real-time ultrasound examination of the area of concern in the left breast was performed. There is a lobular area of hypoechogenicity with increased flow throughout the central region, located at 6: 00 and measuring 5.9 x 1.7 cm. No discrete internal fluid collections seen. The abnormal area exten ds close to and may be in contact with the breast implant. Superficial to the sonographic abnormalit y, there is a puncture randee which the patient states is related to a drug entry site. CONCLUSION: 1. 5.9 cm area of decreased echogenicity and increased flow by color Doppler in the 6: 2. 00 region of the right breast correlating to an area of redness and pain. While this does not senthil gnostic, the features would be compatible with an abscess. 3. Please note that this examination is not performed for the purposes of breast cancer detection. N o BI-RADS assessment is made. 4. The sonographic abnormality should be followed for resolution after treatment. Baljinder Al MD on March 27, 2017 at 16:18 Board Certified Radiologist. This report was verified electronically.
[2017-03-27] MEDS ORDERED: ASP: Location of Dalbavancin administration OTHER ONE (17:45)
[2017-03-27] MEDS ORDERED: ASP: No known hypersensitivity to Vanco, Telavancin, Dalbavancin OTHER ONE (17:45)
[2017-03-27] MEDS ORDERED: ASP: Only reason for admit - IV antibiotics OTHER ONE (17:45)
[2017-03-27] MEDS ORDERED: MISCELLANEOUS PHARMACY INFORMATION XX ONE (17:45)
[2017-03-27] MEDS ORDERED: ASP: Does not meet inpatient admission criteria OTHER ONE (17:45)
[2017-03-27] MEDS ORDERED: DALBAVANCIN INJ 1,500 MG in DEXTROSE 5% IN WATE 500 ML INJ 500 ML IV STA ×2 (17:45)
[2017-03-27] MEDS ORDERED: CLIN150C14 PO ×2 (18:59→19:01)
[2017-03-28 06:00] VITALS: BP 123/74; PULSE 80; RESP 16; O2SAT 99
[2017-03-28] MEDS ORDERED: ONDANSETRON ODT 4 MG TAB PO ONE (06:15)
[2017-03-28] MEDS ORDERED: cloNIDine HCL 0.1 MG TAB PO ONE (06:15)
[2017-03-28] MEDS ORDERED: CLINDAMYCIN 150 MG CAP PO SCH (07:00)
[2017-03-28 10:00] VITALS: BP 116/64; PULSE 76; RESP 19; TEMP 98.2; O2SAT 100
--- NOTE | 2017-03-28 11:36 | PD ---
Physical Exam Time Seen by Provider: 11:30 Narrative Patient left AMA. Data Data Last Documented VS Vital Signs Date Time Temp Pulse Resp B/P (MAP) Pulse Ox O2 Delivery O2 Flow Rate FiO2 03/28/17 10:00 98.2 76 19 116/64 (81) 100 Room Air Orders Orders Complete Blood Count With Diff (03/27/17 12:59) Comprehensive Metabolic Panel (03/27/17 12:59) Thyroid Stimulating Hormone (03/27/17 12:59) Urinalysis - C+S If Indicated (03/27/17 12:59) Ed Urine Pregnancytest Poc (03/27/17 12:59) Psych Screen (03/27/17 12:59) Drug Screen, Random Urine (03/27/17 12:59) Alcohol (Ethanol) (03/27/17 12:59) Electrocardiogram (03/27/17 ) Us Breast Unilateral (03/27/17 ) Hydroxyzine Pamoate (Vistaril) (03/27/17 14:45) Ondansetron Odt (Zofran Odt) (03/27/17 14:45) Asp:No Reaction To [place]/Vanc (Asp Crit (03/27/17 17:45) Asp: Does Not Meet Inpt Admit (Asp Crit: (03/27/17 17:45) Asp: Iv Antibiotics Admit Only (Asp Crit (03/27/17 17:45) Asp: Location Of [place] Admin (Asp Crit: (03/27/17 17:45) [facility] (03/27/17 17:45) Dal[place]avancin Inj (Dalvance Inj) (03/27/17 17:45) Ondansetron Odt (Zofran Odt) (03/28/17 06:15) Hydroxyzine Pamoate (Vistaril) (03/28/17 06:15) Clonidine (Catapres) (03/28/17 06:15) Diet Regular Basic (03/28/17 Breakfast) Clindamycin (Cleocin) (03/28/17 07:00) Diet Regular Basic (03/28/17 Lunch) Labs Laboratory Tests Test 03/27/17 13:22 03/27/17 13:26 White Blood Count 9.2 TH/MM3 Red Blood Count 4.88 MIL/MM3 Hemoglobin 14.2 GM/DL Hematocrit 42.0 % Mean Corpuscular Volume 86.1 FL Mean Corpuscular Hemoglobin 29.1 PG Mean Corpuscular Hemoglobin Concent 33.8 % Red Cell Distribution Width 15.1 % Platelet Count 317 TH/MM3 Mean Platelet Volume 9.0 FL Neutrophils (%) (Auto) 67.0 % Lymphocytes (%) (Auto) 24.0 % Monocytes (%) (Auto) 6.6 % Eosinophils (%) (Auto) 1.2 % Basophils (%) (Auto) 1.2 % Neutrophils # (Auto) 6.1 TH/MM3 Lymphocytes # (Auto) 2.2 TH/MM3 Monocytes # (Auto) 0.6 TH/MM3 Eosinophils # (Auto) 0.1 TH/MM3 Basophils # (Auto) 0.1 TH/MM3 CBC Comment DIFF FINAL Differential Comment Blood Urea Nitrogen 9 MG/DL Creatinine 0.78 MG/DL Random Glucose 125 MG/DL Total Protein 7.6 GM/DL Albumin 3.3 GM/DL Calcium Level 8.6 MG/DL Alkaline Phosphatase 116 U/L Aspartate Amino Transf (AST/SGOT) 77 U/L Alanine Aminotransferase (ALT/SGPT) 121 U/L Total Bilirubin 0.4 MG/DL Sodium Level 140 MEQ/L Potassium Level 3.7 MEQ/L Chloride Level 106 MEQ/L Carbon Dioxide Level 29.3 MEQ/L Anion Gap 5 MEQ/L Estimat Glomerular Filtration Rate 80 ML/MIN Thyroid Stimulating Hormone 3rd Gen 0.203 uIU/ML Ethyl Alcohol Level LESS THAN 3 MG/DL Urine Color YELLOW Urine Turbidity HAZY Urine pH 6.0 Urine Specific [place] 1.031 Urine Protein 30 mg/dL Urine Glucose (UA) NEG mg/dL Urine Ketones NEG mg/dL Urine Occult Blood SMALL Urine Nitrite NEG Urine Bilirubin NEG Urine Urobilinogen 2.0 MG/DL Urine Leukocyte Esterase MOD Urine RBC 2 /hpf Urine WBC 4 /hpf Urine Squamous Epithelial Cells 21 /hpf Urine Transitional Epithelial Cells <1 /hpf Urine Bacteria RARE /hpf Urine Mucus MOD /lpf Microscopic Urinalysis Comment CULT NOT INDICATED Urine Opiates Screen POS Urine Barbiturates Screen NEG Urine Amphetamines Screen NEG Urine Benzodiazepines Screen POS Urine Cocaine Screen POS Urine Cannabinoids Screen NEG MDM Supervised Visit with BENITA: No Narrative Course Patient left AMA at this time. The patient has been seen here multiple times in the past with similar complaints and polysubstance abuse. She was screened by Florence Carroll, psych screener yesterday, and after discussion with her we both felt that it was not necessary to thrasher act the patient as she was not a threat to herself or others. The patient remained here voluntarily to see psychiatry. She refused all medical care yesterday. She decided she did not want to wait any longer to see psychiatrist. The patient did take the prescription for clindamycin that was prescribed to her for her right breast abscess. Patient was instructed to follow-up with general surgeon for drainage of the breast abscess. AMA: The risks of leaving against medical advice without further evaluation treatment were discussed with the patient. These risks include cardiac dysfunction, cardiac dysrhythmia, possible heart attack, possible stroke or . The patient indicated understanding of these risks and appeared to have the capacity to make this decision. Diagnosis Primary Impression: Left against medical advice Referrals: [facility] call for appointment General Surgeon call for appointment Primary Care Physician call for appointment Patient Instructions: General Instructions, Abscess (ED), Abscess Follow-up (ED ), Abscess Incision and Drainage (GEN) Departure Forms: Tests/Procedures Additional Instruction: You were given Dalvance in the ER; you do not need to continue antibiotics after discharge from the ER Follow-up with general surgeon for incision and drainage of abscess Return to the emergency department immediately with worsening of symptoms Scripts Clindamycin (Clindamycin) 150 Mg Cap 450 MG PO Q6H for Infection for 10 Days, #120 CAP 0 Refills Prov: Jessica Dacosta 03/27/17 Disposition: 07 AGAINST MEDICAL ADVICE Jessica Dacosta Mar 28, 2017 11:36
--- NOTE | 2017-03-28 15:53 | EKG ---
Date Performed: 03/27/2017 Time Performed: 13:30:17 PTAGE: 42 years EKG: Sinus rhythm NORMAL ECG PREVIOUS TRACING : 03/12/2017 10.07 DOCTOR: Sergei Callahan Interpretating Date/Time 03/28/2017 15:52:14
== END 2017-03-28 11:35 | disposition left against medical advice (07) ==
LOC: NEPD 12:48
DX: R45.851 Suicidal ideations (principal); F31.9 Bipolar disorder, unspecified; B19.20 Unspecified viral hepatitis C without hepatic coma; N61.1 Abscess of the breast and nipple; F19.10 Other psychoactive substance abuse, uncomplicated; Z72.0 Tobacco use; Z79.899 Other long term (current) drug therapy
CPT/HCPCS: 76642; 80053; 80307; 81001; 84443; 84703; 85025; 93005; 99284; Q0177

== ENCOUNTER 2017-12-06 18:36 | Inpatient (IN) ==
[2017-12-06] MEDS ORDERED: Sod Chloride 0.9% Inj 1,000 ML IV.SIG ONE ×2 (21:30→23:19)
[2017-12-06] MEDS ORDERED: Acetaminophen 325 MG Tablet PO ONE (21:30)
[2017-12-06] MEDS ORDERED: Ketorolac Inj 30 MG/ML (IVP) Vial IV.PUSH ONE (21:30)
--- NOTE | 2017-12-06 21:35 | ED ---
HPI General Chief complaint: Skin/Abscess/Foreign Body Stated complaint: hand swollen/skin Time Seen by Provider: 12/06/17 21:13 Source: patient Mode of arrival: ambulatory Limitations: no limitations History of Present Illness HPI narrative: 42-year-old female with PMH of hepatitis C, IVDA presents the ED for evaluation of 3-day history of 10/10 throbbing pain in the left hand. No alleviating or exacerbating factors reported. Onset after injecting in the area. She denies risk of foreign body in the abscess. Patient states that she started feeling feverish today. She has not measured temperature at home. She endorses nausea and clear rhinorrhea. She denies headache, ear pain, sore throat, chest pain, palpitations, shortness of breath, abdominal pain, dysuria, back pain, risk of . She denies history of MRSA. No treatment attempted before arrival. Related Data Home Medications Medication Instructions Recorded Confirmed methadone 80 mg PO DAILY 10/11/17 12/06/17 Allergies Allergy/AdvReac Type Severity Reaction Status Date / Time penicillin G Allergy Severe HIVES Verified 10/11/17 12:41 sulfamethoxazole Allergy Severe SWELLING Verified 10/11/17 12:41 AND HIVES trimethoprim Allergy Severe SWELLING Verified 10/11/17 12:41 AND HIVES Review of Systems ROS: all other systems reviewed are negative PMFSH Medical History Medical History Hepatitis C (Acute) Bipolar 1 disorder (Acute) Surgical History Surgical History H/O breast augmentation (Acute) Social History Social History Substance History: Active Abuse Second Hand Smoke Exposure: No Smoking Status: Heavy tobacco smoker Tobacco Type: Cigarettes How Often Do You Have a Drink Containing Alcohol: Never Recent Travel in [place] within the Last 8 Weeks: No Recent Out of Country Travel within the Last 8 Weeks: No Exam Narrative Exam Narrative: GENERAL: Well-nourished, well-developed white female in no acute distress. SKIN: Focused skin assessment warm/dry. SKIN: There is an indurated area in the dorsum of the left hand which measures about 3 cm in diameter. It is fluctuant, pointing. No drainage. The entire arm is warm, tender. No axillary LAD. HEAD: Atraumatic. Normocephalic. EYES: Pupils equal and round. No scleral icterus. No injection or drainage. ENT: No nasal bleeding or discharge. Mucous membranes pink and moist. NECK: Trachea midline. No JVD. CARDIOVASCULAR: Regular rate and rhythm. No murmur appreciated. RESPIRATORY: No accessory muscle use. Clear to auscultation. Breath sounds equal bilaterally. GASTROINTESTINAL: Abdomen soft, non-tender, nondistended. Hepatic and splenic margins not palpable. MUSCULOSKELETAL: No obvious deformities. No clubbing. No cyanosis. No edema. FOCUSED LEFT UPPER EXTREMITY EXAM: 2+ radial pulse. Neurovascularly intact distally on each digit. Patient unwilling to flex and extend the hand secondary to pain. NEUROLOGICAL: Awake and alert. No obvious cranial nerve deficits. Motor grossly within normal limits. Normal speech. PSYCHIATRIC: Appropriate mood and affect; insight and judgment normal. Course Initial Documented Vital Signs Temperature 100.0 F H 12/06/17 18:42 Pulse Rate 126 H 12/06/17 18:42 Respiratory Rate 20 12/06/17 18:42 Blood Pressure 127/82 12/06/17 18:42 Pulse Oximetry 99 12/06/17 18:42 Last Documented Vital Signs Temperature 98.4 F 12/07/17 01:00 Pulse Rate 85 12/07/17 04:37 Respiratory Rate 18 12/07/17 01:00 Blood Pressure 110/75 12/07/17 01:00 Pulse Oximetry 99 12/07/17 01:00 Medical Decision Making BENITA Attestation BENITA supervised visit: Yes Attestation: I, Dr. Steiner, have reviewed the advance practice practitioner' s documentation and am in agreement, met with the patient face to face, made the diagnosis, and the medical decision making was done by me. *My assessment and Findings: left hand soft tissue swelling. cap refill WNL. NVTI. No osteo on CT. Abx MDM Narrative Medical decision making narrative: 42-year-old female with history of IVDA presents the ED for evaluation of abscess of the left hand, fever, chills. Patient's tachycardic, febrile on presentation. Left hand consistent with abscess. Patient refuses to move him to range of motion, will obtain CT to rule out tendinitis and determine the size of the abscess. Sepsis workup initiated. Leukocytosis of 19,000+. Patient was administered vancomycin, aztreonam, Flagyl. Plan to admit. Patient signed out to Dr. Muller at end of shift. Medical Screen Exam Complete: Yes Emergency Medical Condition: Yes Differential Diagnosis Differential Diagnosis: Cellulitis versus sepsis versus tendinitis versus other Lab Data Result diagrams: 12/06/17 21:50 12/06/17 21:50 POC Results POC Urine Results Negative Lab Results 12/06/17 12/06/17 12/06/17 Range/Units 21:50 21:50 21:50 WBC 19.5 H (4.0-11.0) th/mm3 RBC 4.97 (4.00-5.30) mil/mm3 Hgb 13.7 (11.6-15.3) gm/dL Hct 41.3 (35.0-46.0) % MCV 83.1 (80.0-100.0) fL MCH 27.6 (27.0-34.0) pg MCHC 33.2 (32.0-36.0) % RDW 16.2 (11.6-17.2) % Plt Count 290 (150-450) th/mm3 MPV 8.9 (7.0-11.0) fL Neut % (Auto) 82.0 H (16.0-70.0) % Lymph % (Auto) 10.4 (9.0-44.0) % Forrest % (Auto) 6.2 (0.0-8.0) % Eos % (Auto) 0.8 (0.0-4.0) % Baso % (Auto) 0.6 (0.0-2.0) % Neut # (Auto) 16.0 H (1.8-7.7) th/mm3 Lymph # (Auto) 2.0 (1.0-4.8) th/mm3 Forrest # (Auto) 1.2 H (0.0-0.9) th/mm3 Eos # (Auto) 0.2 (0.0-0.4) th/mm3 Baso # (Auto) 0.1 (0.0-0.2) th/mm3 WBC Differential . Differential Comment Auto diff final Sodium 137 (136-145) meq/L Potassium 3.8 (3.5-5.1) meq/L Chloride 100 (98-107) meq/L Carbon Dioxide 31.1 (21.0-32.0) meq/L Anion Gap 6 (5-15) meq/L BUN 11 (7-18) mg/dL Creatinine 0.82 (0.50-1.00) mg/dL Estimated GFR 76 L (>89) mL/min Random Glucose 136 H (74-106) mg/dL Lactic Acid 1.2 (0.4-2.0) mmol/L Calcium 8.6 (8.5-10.1) mg/dL Magnesium 2.1 (1.5-2.5) mg/dL Total Bilirubin 0.6 (0.2-1.0) mg/dL AST 42 H (15-37) U/L ALT 76 H (10-53) U/L Alkaline Phosphatase 123 H (45-117) U/L Total Protein 7.9 (6.4-8.2) g/dL Albumin 3.3 L (3.4-5.0) g/dL Urine Color (Yellw/Straw) Urine Clarity (Clear) Urine pH (5.0-8.5) Ur Specific [place] (1.002-1.035) Urine Protein (Neg-Trace) mg/dL Urine Glucose (UA) (Negative) mg/dL Urine Ketones (Negative) mg/dL Urine Occult Blood (Negative) Urine Nitrate (Negative) Urine Bilirubin (Negative) Urine Urobilinogen (Less than 2) mg/dL Ur Leukocyte Esterase (Negative) Urine RBC (0-3) /hpf Urine WBC (0-5) /hpf Ur Squamous Epith Cells (0-5) /hpf Urine Mucus (Occasional) /lpf Micro UA Comment Ur Microscopic Review Urine Culture Comments Urine Opiates Screen (Neg) Ur Barbiturates Screen (Neg) Ur Amphetamines Screen (Neg) U Benzodiazepines Scrn (Neg) Urine Cocaine Screen (Neg) U Cannabinoids Screen (Neg) 12/07/17 12/07/17 Range/Units 01:00 01:00 WBC (4.0-11.0) th/mm3 RBC (4.00-5.30) mil/mm3 Hgb (11.6-15.3) gm/dL Hct (35.0-46.0) % MCV (80.0-100.0) fL MCH (27.0-34.0) pg MCHC (32.0-36.0) % RDW (11.6-17.2) % Plt Count (150-450) th/mm3 MPV (7.0-11.0) fL Neut % (Auto) (16.0-70.0) % Lymph % (Auto) (9.0-44.0) % Forrest % (Auto) (0.0-8.0) % Eos % (Auto) (0.0-4.0) % Baso % (Auto) (0.0-2.0) % Neut # (Auto) (1.8-7.7) th/mm3 Lymph # (Auto) (1.0-4.8) th/mm3 [place] # (Auto) (0.0-0.9) th/mm3 Eos # (Auto) (0.0-0.4) th/mm3 Baso # (Auto) (0.0-0.2) th/mm3 WBC Differential Differential Comment Sodium (136-145) meq/L Potassium (3.5-5.1) meq/L Chloride (98-107) meq/L Carbon Dioxide (21.0-32.0) meq/L Anion Gap (5-15) meq/L BUN (7-18) mg/dL Creatinine (0.50-1.00) mg/dL Estimated GFR (>89) mL/min Random Glucose (74-106) mg/dL Lactic Acid (0.4-2.0) mmol/L Calcium (8.5-10.1) mg/dL Magnesium (1.5-2.5) mg/dL Total Bilirubin (0.2-1.0) mg/dL AST (15-37) U/L ALT (10-53) U/L Alkaline Phosphatase (45-117) U/L Total Protein (6.4-8.2) g/dL Albumin (3.4-5.0) g/dL Urine Color Straw (Yellw/Straw) Urine Clarity Clear (Clear) Urine pH 6.0 (5.0-8.5) Ur Specific [place] 1.042 H (1.002-1.035) Urine Protein Negative (Neg-Trace) mg/dL Urine Glucose (UA) Negative (Negative) mg/dL Urine Ketones Negative (Negative) mg/dL Urine Occult Blood Small H (Negative) Urine Nitrate Negative (Negative) Urine Bilirubin Negative (Negative) Urine Urobilinogen Less than 2 (Less than 2) mg/dL Ur Leukocyte Esterase Negative (Negative) Urine RBC 1 (0-3) /hpf Urine WBC 1 (0-5) /hpf Ur Squamous Epith Cells <1 (0-5) /hpf Urine Mucus Few H (Occasional) /lpf Micro UA Comment Culture not ind Ur Microscopic Review Not Reportable Urine Culture Comments Culture not ind Urine Opiates Screen Pos H (Neg) Ur Barbiturates Screen Neg (Neg) Ur Amphetamines Screen Neg (Neg) U Benzodiazepines Scrn Neg (Neg) Urine Cocaine Screen Pos H (Neg) U Cannabinoids Screen Neg (Neg) Imaging Data Radiologist's impression: Chest X-Ray 12/06/17 21:29 CONCLUSION: No active disease. Hand CT 12/06/17 21:35 CONCLUSION: 1. Findings of subcutaneous abscess without evidence of osteomyelitis. ECG Data Attestation: I personally reviewed and interpreted this ECG as follows: Interpretation: Rate 113, sinus tachycardia. NV interval 116, QRS 87, QTC 399 ms. Normal axis. No acute ST changes. Reviewed by Dr. Muller. Discharge Plan Discharge Disposition Patient Disposition: 30 Still Patient Discharge Condition Condition: Good Discharge Details Diagnosis: Hand abscess, IVDU (intravenous drug user) Physicians Team ED Provider: Dave Steiner ED Midlevel Provider: Jewell Maldonado Primary Care Provider: Primary Care Stefanie Santamaria Attending Provider: Jay Jay Chaudhari Other Providers: Chon Perkins Discharge Interventions Interventions: ED Discharge Assessment Last Done: 12/07/17 04:37 Vital Signs Last Done: 12/06/17 21:56 Status ED Status: Left Department Discharge Information Discharge Date/Time: 12/07/17 04:59
[2017-12-06 22:09] LABS: Baso # (Auto) 0.1 th/mm3 (0.0-0.2); Baso % (Auto) 0.6 % (0.0-2.0); Eos # (Auto) 0.2 th/mm3 (0.0-0.4); Eos % (Auto) 0.8 % (0.0-4.0); Hematocrit 41.3 % (35.0-46.0); Hemoglobin 13.7 gm/dL (11.6-15.3); Lymph % (Auto) 10.4 % (9.0-44.0); Mean Corpuscular HGB Conc 33.2 % (32.0-36.0); Mean Corpuscular Hemoglobin 27.6 pg (27.0-34.0); Mean Corpuscular Volume 83.1 fL (80.0-100.0); Mean Platelet Volume 8.9 fL (7.0-11.0); Mono # (Auto) 1.2 th/mm3 (0.0-0.9); Mono % (Auto) 6.2 % (0.0-8.0); Platelet Count 290 th/mm3 (150-450); Red Blood Count 4.97 mil/mm3 (4.00-5.30); Red Cell Distribution Width 16.2 % (11.6-17.2); White Blood Count 19.5 th/mm3 (4.0-11.0)
--- NOTE | 2017-12-06 22:14 | XR ---
EXAM DATE: 12/06/2017 10:07 PM EDT AGE/SEX: 42 years / Female INDICATIONS: Fever and swollen, red hand. CLINICAL DATA: This is the patient's initial encounter. Patient reports that signs and symptoms have been present for 1 day and indicates a pain score of 0/10. MEDICAL/SURGICAL HISTORY: None. None. COMPARISON: No prior exams available for comparison. FINDINGS: A single AP view of the chest demonstrates the lungs to be symmetrically aerated without evidence of mass, infiltrate or effusion. The cardiomediastinal contours are unremarkable. Osseous structures a re intact. CONCLUSION: No active disease. Electronically signed by: Rene Schreiber MD 12/06/2017 10:13 PM EDT
[2017-12-06] MEDS ORDERED: Aztreonam Inj 2 GM in Sodium Chloride 0.9% Inj 100 ML IV.SIG STA (22:16)
[2017-12-06] MEDS ORDERED: Vancomycin Inj 1 GM/200 ML PIGGYBACK IV.SIG ONE (22:16)
[2017-12-06 22:24] LABS: Albumin 3.3 g/dL (3.4-5.0); Anion Gap 6 meq/L (5-15); Aspartate Aminotransferase 42 U/L (15-37); Blood Urea Nitrogen 11 mg/dL (7-18); Calcium 8.6 mg/dL (8.5-10.1); Carbon Dioxide 31.1 meq/L (21.0-32.0); Chloride 100 meq/L (98-107); Glomerular Filtration Rate 76 mL/min (>89); Glucose,Random 136 mg/dL (74-106); Magnesium 2.1 mg/dL (1.5-2.5); Potassium 3.8 meq/L (3.5-5.1); Sodium 137 meq/L (136-145)
[2017-12-06 22:27] LABS: Alanine Aminotransferase 76 U/L (10-53); Alkaline Phosphatase 123 U/L (45-117); Total Protein 7.9 g/dL (6.4-8.2)
[2017-12-06] MEDS ORDERED: Vancomycin Inj 1,000 MG in Sodium Chlor 0.9% Inj 250 ML IV.SIG ONE (23:00)
--- NOTE | 2017-12-06 23:30 | CT ---
EXAM DATE: 12/06/2017 11:18 PM EDT AGE/SEX: 42 years / Female INDICATIONS: Left hand swelling, Evaluate for abscess. CLINICAL DATA: This is the patient's initial encounter. Patient reports that signs and symptoms have been present for 1 day and indicates a pain score of 10/10. MEDICAL/SURGICAL HISTORY: . IVDU. Hepatitis C. None. RADIATION DOSE: 11.61 CTDI (mGy) COMPARISON: No prior exams available for comparison. TECHNIQUE: Multiple contiguous axial images were acquired using a multi-row detector CT scanner afte r the intravenous administration of 80 ml Omnipaque 350 (iohexol) nonionic water-soluble contrast as a single exam dose. Multiplanar reconstruction was performed in the sagittal and coronal planes. Using automated exposure control and adjustment of the mA and/or kV according to patient size, radiat ion dose was kept as low as reasonably achievable to obtain optimal diagnostic quality images. DICOM format image data is available electronically for review and comparison. FINDINGS: There is no bony destruction or periosteal reaction to suggest osteomyelitis. There is soft tissue swelling in a diffuse fashion over the dorsal aspect of the hand with a superfic ial abscess measuring 1.4 cm.. This is at the level of the mid carpal row. Joint spaces are maintaine d. CONCLUSION: 1. Findings of subcutaneous abscess without evidence of osteomyelitis. Electronically signed by: Arben Madrid MD 12/06/2017 11:29 PM EDT
[2017-12-07] MEDS ORDERED: Vancomycin Consult Pharmacy OTHER PRN (00:30)
[2017-12-07] MEDS ORDERED: Acetaminophen 325 MG Tablet PO PRN (00:32)
[2017-12-07] MEDS ORDERED: Bisacodyl 10 MG Supp RECTAL PRN (00:32)
--- NOTE | 2017-12-07 00:53 | P.HPIM ---
History of Present Illness Primary Care Physician: No Primary Care Physician History of Present Illness: This is a 42-year-old female with a PMH of hepatitis C, Bipolar Disorder and IVDU who presented to the ER with complaints of left hand pain and swelling x3 days after injecting. Notes progressive pain and swelling, pain is constant, 10 /10, worse w/ movement, non-radiating. +subjective fever/chills. On arrival, BP 127/82, HR 126, O2 sat 99% on RA, Temp 101.7. WBC 19.5. Chemistry unremarkable. LFTs mildly elevated. CXR with no acute findings. CT Hand with subcutaneous abscess no evidence of osteomyelitis. S/p Vanc/Azactam/Flagyl in ER. - Diagnosis (1) Hand abscess (2) IVDU (intravenous drug user) (3) Sepsis Review of Systems PAST FAMILY HISTORY: Reviewed. No h/o DM or CAD All other systems reviewed negative except as stated in HPI PMFSH - History History Provided By: Patient - Medical History Medical History: Medical History (Last Reviewed 12/06/17 @ 22:05 by MICHAEL Nieves) Hepatitis C (Acute) Bipolar 1 disorder (Acute) - Surgical History Surgical History: Surgical History (Last Reviewed 12/06/17 @ 22:05 by MICHAEL Nieves) H/O breast augmentation (Acute) - Tobacco History Second Hand Smoke Exposure: Yes Tobacco Use In Past 30 Days: Yes Smoking Status: Current every day smoker Tobacco Type: Cigarettes - Alcohol History How Often Do You Have a Drink Containing Alcohol: Never - Substance Use History Substance History: Active Abuse - Substance Use Type Heroin Status: Active Route Used: Intravenously Reason for Use: Get High - Travel History Recent Travel in the [place] Within the Last 8 Weeks: No Recent Travel Out of the Country Within the Last 8 Weeks: No - Immunization History Tetanus Immunization: <5 Years Medications and Allergies Active Medications: Active Medications Acetaminophen (Tylenol) 650 mg PO Q4H PRN PRN Reason: Temp > 100.4 Al Hydroxide/Mg Hydroxide (Milk Of Magnesia Liq) 30 ml PO Q12H PRN PRN Reason: Mild Constipation Bisacodyl (Dulcolax Supp) 10 mg RECTAL DAILY PRN PRN Reason: SEVERE CONSITIPATION Aztreonam 1,000 mg/ Sodium (Chloride) 100 mls @ 200 mls/hr IV.SIG Q8H JOHANA Metronidazole/Sodium Chloride (Flagyl 500 Mg Inj) 100 mls @ 100 mls/hr IV.SIG Q8H JOHANA Sodium Chloride (Ns Inj) 1,000 mls @ 100 mls/hr IV.CONT .Q10H JOHANA Lactulose (Lactulose Liq) 30 ml PO DAILY PRN PRN Reason: SEVERE CONSITIPATION Lorazepam (Ativan Inj) 1 mg IV.PUSH Q2H PRN PRN Reason: AGITATION/WITHDRAWAL Ondansetron HCl (Zofran Inj) 4 mg IV.PUSH Q6H PRN PRN Reason: NAUSEA OR VOMITING Oxycodone HCl (Roxicodone) 5 mg PO Q4H PRN PRN Reason: PAIN 3-5 Oxycodone HCl (Roxicodone) 10 mg PO Q4H PRN PRN Reason: PAIN 6-10 Pharmacy Profile Note (Vancomycin Consult Pharmacy) 1 each OTHER UNSCH PRN PRN Reason: Pharmacy to dose Senna/Docusate Sodium (Cyn-Colace) 1 tab PO BID JOHANA Sennosides (Senokot) 17.2 mg PO Q12H PRN PRN Reason: Moderate Constipation Allergies Allergy/AdvReac Type Severity Reaction Status Date / Time penicillin G Allergy Severe HIVES Verified 10/11/17 12:41 sulfamethoxazole Allergy Severe SWELLING Verified 10/11/17 12:41 AND HIVES trimethoprim Allergy Severe SWELLING Verified 10/11/17 12:41 AND HIVES Home Medications Medication Instructions Recorded Confirmed Type methadone 80 mg PO DAILY 10/11/17 12/06/17 History Exam Vital signs: Vital Signs 12/06/17 18:42 12/06/17 21:56 12/07/17 00:02 Temperature 100.0 F H 101.7 F H Pulse Rate 126 H 118 H Respiratory Rate 20 16 18 Blood Pressure 127/82 131/73 Pulse Oximetry 99 99 Intake & Output 12/06/17 12/06/17 12/07/17 06:59 18:59 06:59 Weight 50.802 kg Narrative: PE: GENERAL: Middle-aged white female in no acute distress. SKIN: Focused skin assessment warm and dry. HEENT: PERRLA, EOMI. No scleral icterus or conjunctival pallor. No lid lag or facial droop. CARDIOVASCULAR: Regular rate and rhythm. No obvious murmurs to auscultation. No chest tenderness to palpation. RESPIRATORY: No obvious rhonchi or wheezing. Clear to auscultation. Breath sounds equal bilaterally. GASTROINTESTINAL: Abdomen soft, non-tender, nondistended. BS normal. MUSCULOSKELETAL: Extremities without clubbing, cyanosis, or edema. No obvious deformities. Left hand erythema/edema, few areas of induration, no drainage noted, +tenderness to palpation. NEUROLOGICAL: Awake, alert and oriented x4. No focal neurologic deficits. Moving both upper and lower extremities spontaneously. PSYCHIATRIC: Appropriate mood and affect. Insight and judgment normal. Results - Labs CBC & Chem 7: 12/06/17 21:50 12/06/17 21:50 Labs: Short CBC 12/06/17 Range/Units 21:50 WBC 19.5 H (4.0-11.0) th/mm3 Hgb 13.7 (11.6-15.3) gm/dL Hct 41.3 (35.0-46.0) % Plt Count 290 (150-450) th/mm3 BMP 12/06/17 21:50 Sodium 137 Potassium 3.8 Chloride 100 Carbon Dioxide 31.1 BUN 11 Creatinine 0.82 Calcium 8.6 Liver Function 12/06/17 Range/Units 21:50 Total Bilirubin 0.6 (0.2-1.0) mg/dL AST 42 H (15-37) U/L ALT 76 H (10-53) U/L Alkaline Phosphatase 123 H (45-117) U/L Albumin 3.3 L (3.4-5.0) g/dL - Imaging Impressions Chest X-Ray 12/06/17 21:29 CONCLUSION: No active disease. Hand CT 12/06/17 21:35 CONCLUSION: 1. Findings of subcutaneous abscess without evidence of osteomyelitis. Caprini VTE Risk Assessment Caprini VTE Risk Assessment: No/Low Risk (score <= 1) Caprini Risk Assessment Model: Point Value = 1 Point Value = 2 Point Value = 3 Point Value = 5 Age 41-60 Minor surgery BMI > 25 kg/m2 Swollen legs Varicose veins or History of unexplained or recurrent spontaneous Oral contraceptives or hormone replacement Sepsis (< 1 month) Serious lung disease, including pneumonia (< 1 month) Abnormal pulmonary function Acute myocardial infarction Congestive heart failure (< 1 month) History of inflammatory bowel disease Medical patient at bed rest Age 61-74 Arthroscopic surgery Major open surgery (> 45 min) Laparoscopic surgery (> 45 min) Malignancy Confined to bed (> 72 hours) Immobilizing plaster cast Central venous access Age >= 75 History of VTE Family history of VTE Factor V Leiden Prothrombin [id number] Lupus anticoagulant Anticardiolipin antibodies Elevated serum homocysteine Heparin-induced thrombocytopenia Other congenital or acquired thrombophilia Stroke (< 1 month) Elective arthroplasty Hip, pelvis, or leg fracture Acute spinal cord injury (< 1 month) Prophylaxis Regimen: Total Risk Factor Score Risk Level Prophylaxis Regimen 0-1 Low Early ambulation 2 Moderate Order ONE of the following: *Sequential Compression Device (SCD) *Heparin 5000 units SQ BID 3-4 Higher Order ONE of the following medications: *Heparin 5000 units SQ TID *Enoxaparin/Lovenox 40 mg SQ daily (WT < 150 kg, CrCl > 30 mL/min) *Enoxaparin/Lovenox 30 mg SQ daily (WT < 150 kg, CrCl > 10-29 mL/min) *Enoxaparin/Lovenox 30 mg SQ BID (WT < 150 kg, CrCl > 30 mL/min) AND/OR *Sequential Compression Device (SCD) 5 or more Highest Order ONE of the following medications: *Heparin 5000 units SQ TID (Preferred with Epidurals) *Enoxaparin/Lovenox 40 mg SQ daily (WT < 150 kg, CrCl > 30 mL/min) *Enoxaparin/Lovenox 30 mg SQ daily (WT < 150 kg, CrCl > 10-29 mL/min) *Enoxaparin/Lovenox 30 mg SQ BID (WT < 150 kg, CrCl > 30 mL/min) AND *Sequential Compression Device (SCD) Assessment and Plan - Assessment (1) Hand abscess Code(s): L02.519 - Cutaneous abscess of unspecified hand Status: Acute (2) IVDU (intravenous drug user) Code(s): F19.90 - Other psychoactive substance use, unspecified, uncomplicated Status: Acute (3) Sepsis Code(s): A41.9 - Sepsis, unspecified organism Status: Acute - Plan A/P: 1. Sepsis: Temp 101.7, HR 130s, WBC 19, Source-hand abscess, s/p Blood Cultures, continue IV Abx, IVF for hydration. 2. Hand Abscess: Left. Secondary to IVDU. CT Hand w/ subcutaneous abscess, no osteomyelitis, images reviewed. Continue w/ IV Abx as above, follow up cultures, consult Hand Sx for I&D. 3. IVDU: Pt counselled. Ativan prn for withdrawal/agitation. 4. DVT Prophylaxis: SCD/Teds 5. Social work for d/c planning as needed. 6. Case discussed w/ ER physician at length, labs/records/imaging reviewed by me.
[2017-12-07] MEDS ORDERED: Vancomycin Inj 1,000 MG in Sodium Chlor 0.9% Inj 250 ML IV.SIG SCH (02:00)
[2017-12-07 02:34] LABS: Bilirubin,Urine Negative (Negative); Clarity,Urine Clear (Clear); Color,Urine Straw (Yellw/Straw); Glucose,Urine (UA) Negative (Negative); Leukocyte Esterase,Urine Negative (Negative); Mucus,Urine Few /lpf (Occasional); Nitrite,Urine Negative (Negative); Specific Gravity,Urine 1.042 (1.002-1.035); Squamous Epithelial Cell,Urine <1 /hpf (0-5)
[2017-12-07 02:38] LABS: Amphetamine Screen,Urine Neg (Neg); Barbiturate Screen,Urine Neg (Neg); Cannabinoid Screen,Urine Neg (Neg); Cocaine Screen,Urine Pos (Neg)
[2017-12-07 02:56] LABS: Opiate Screen,Urine Pos (Neg)
[2017-12-07] MEDS: Sod Chloride 0.9% Inj 1,000 ML IV.CONT SCH ×4 (05:11→16:05)
[2017-12-07] MEDS: Senna/Docusate Sodium 8.6/50 MG Tablet PO SCH ×2 (10:23→23:09)
--- NOTE | 2017-12-07 12:16 | P.PNIM ---
Subjective Interval history: This is a 42-year-old female with a PMH of hepatitis C, Bipolar Disorder and IVDU who presented to the ER with complaints of left hand pain and swelling x3 days after injecting. Notes progressive pain and swelling, pain is constant, 10 /10, worse w/ movement, non-radiating. +subjective fever/chills. On arrival, BP 127/82, HR 126, O2 sat 99% on RA, Temp 101.7. WBC 19.5. Chemistry unremarkable. LFTs mildly elevated. CXR with no acute findings. CT Hand with subcutaneous abscess no evidence of osteomyelitis. S/p Vanc/Azactam/Flagyl in ER. 11-2 NEEDS TO SEE HAND SURGERY FOR LEFT HAND KEEP NPO ON ANTIBIOTICS FEVERS CHRONIC PAIN Physical Exam Vital signs: Vital Signs 12/06/17 18:42 12/06/17 21:56 12/07/17 00:02 Temperature 100.0 F H 101.7 F H Pulse Rate 126 H 118 H Respiratory Rate 20 16 18 Blood Pressure 127/82 131/73 Pulse Oximetry 99 99 12/07/17 01:00 12/07/17 04:37 12/07/17 07:49 Temperature 98.4 F 99.0 F Pulse Rate 80 85 95 H Respiratory Rate 18 20 Blood Pressure 110/75 127/75 Pulse Oximetry 99 98 12/07/17 11:25 Temperature 99.0 F Pulse Rate 102 H Respiratory Rate 16 Blood Pressure 137/77 Pulse Oximetry 93 L Intake & Output 12/06/17 12/07/17 12/07/17 18:59 06:59 18:59 Intake Total 2450 / 2450 200 / 200 Balance 2450 / 2450 200 / 200 Weight 50.802 kg Intake: IV 2450 / 2450 200 / 200 Azactam Inj 1,000 MG In NS Inj 100 / 100 100 ML @ 200 mls/hr IV.SIG Q8H JOHANA Rx#:[id number] Vancomycin Inj 1,000 MG In NS 250 / 250 Inj 250 ML @ 250 mls/hr IV.SIG DAILY@0200 JOHANA Rx#:[id number] Flagyl 500 MG Inj 100 ML @ 100 100 / 100 mls/hr IV.SIG Q8H JOHANA Rx#: [id number] Narrative: PE: GENERAL: Middle-aged white female in no acute distress. SKIN: Focused skin assessment warm and dry. HEENT: PERRLA, EOMI. No scleral icterus or conjunctival pallor. No lid lag or facial droop. CARDIOVASCULAR: Regular rate and rhythm. No obvious murmurs to auscultation. No chest tenderness to palpation. RESPIRATORY: No obvious rhonchi or wheezing. Clear to auscultation. Breath sounds equal bilaterally. GASTROINTESTINAL: Abdomen soft, non-tender, nondistended. BS normal. MUSCULOSKELETAL: Extremities without clubbing, cyanosis, or edema. No obvious deformities. Left hand erythema/edema, few areas of induration, no drainage noted, +tenderness to palpation. WHITISH SPOT ON LEFT WRIST AND DORSUM OF HAND NEUROLOGICAL: Awake, alert and oriented x4. No focal neurologic deficits. Moving both upper and lower extremities spontaneously. PSYCHIATRIC: Appropriate mood and affect. Insight and judgment normal. Results - Labs CBC & Chem 7: 12/06/17 21:50 12/06/17 21:50 Laboratory Results - last 24 hr 12/06/17 12/06/17 12/06/17 21:50 21:50 21:50 WBC 19.5 H RBC 4.97 Hgb 13.7 Hct 41.3 MCV 83.1 MCH 27.6 MCHC 33.2 RDW 16.2 Plt Count 290 MPV 8.9 Neut % (Auto) 82.0 H Lymph % (Auto) 10.4 Bland % (Auto) 6.2 Eos % (Auto) 0.8 Baso % (Auto) 0.6 Neut # (Auto) 16.0 H Lymph # (Auto) 2.0 Bland # (Auto) 1.2 H Eos # (Auto) 0.2 Baso # (Auto) 0.1 WBC Differential . Differential Comment Auto diff final Sodium 137 Potassium 3.8 Chloride 100 Carbon Dioxide 31.1 Anion Gap 6 BUN 11 Creatinine 0.82 Estimated GFR 76 L Random Glucose 136 H Lactic Acid 1.2 Calcium 8.6 Magnesium 2.1 Total Bilirubin 0.6 AST 42 H ALT 76 H Alkaline Phosphatase 123 H Total Protein 7.9 Albumin 3.3 L Urine Color Urine Clarity Urine pH Ur Specific [place] Urine Protein Urine Glucose (UA) Urine Ketones Urine Occult Blood Urine Nitrate Urine Bilirubin Urine Urobilinogen Ur Leukocyte Esterase Urine RBC Urine WBC Ur Squamous Epith Cells Urine Mucus Micro UA Comment Ur Microscopic Review Urine Culture Comments Urine Opiates Screen Ur Barbiturates Screen Ur Amphetamines Screen U Benzodiazepines Scrn Urine Cocaine Screen U Cannabinoids Screen 12/07/17 12/07/17 01:00 01:00 WBC RBC Hgb Hct MCV MCH MCHC RDW Plt Count MPV Neut % (Auto) Lymph % (Auto) Bland % (Auto) Eos % (Auto) Baso % (Auto) Neut # (Auto) Lymph # (Auto) Bland # (Auto) Eos # (Auto) Baso # (Auto) WBC Differential Differential Comment Sodium Potassium Chloride Carbon Dioxide Anion Gap BUN Creatinine Estimated GFR Random Glucose Lactic Acid Calcium Magnesium Total Bilirubin AST ALT Alkaline Phosphatase Total Protein Albumin Urine Color Straw Urine Clarity Clear Urine pH 6.0 Ur Specific [place] 1.042 H Urine Protein Negative Urine Glucose (UA) Negative Urine Ketones Negative Urine Occult Blood Small H Urine Nitrate Negative Urine Bilirubin Negative Urine Urobilinogen Less than 2 Ur Leukocyte Esterase Negative Urine RBC 1 Urine WBC 1 Ur Squamous Epith Cells <1 Urine Mucus Few H Micro UA Comment Culture not ind Ur Microscopic Review Not Reportable Urine Culture Comments Culture not ind Urine Opiates Screen Pos H Ur Barbiturates Screen Neg Ur Amphetamines Screen Neg U Benzodiazepines Scrn Neg Urine Cocaine Screen Pos H U Cannabinoids Screen Neg Microbiology 12/06/17 21:50 Blood - Peripheral Aerobic Blood Culture - Preliminary No growth in 1 day 12/06/17 21:50 Blood - Peripheral Anaerobic Blood Culture - Preliminary No growth in 1 day 12/06/17 21:45 Blood - Peripheral Aerobic Blood Culture - Preliminary No growth in 1 day 12/06/17 21:45 Blood - Peripheral Anaerobic Blood Culture - Preliminary No growth in 1 day - Imaging Impressions Chest X-Ray 12/06/17 21:29 CONCLUSION: No active disease. Hand CT 12/06/17 21:35 CONCLUSION: 1. Findings of subcutaneous abscess without evidence of osteomyelitis. Assessment and Plan - Assessment (1) Hand abscess Code(s): L02.519 - Cutaneous abscess of unspecified hand Status: Acute (2) IVDU (intravenous drug user) Code(s): F19.90 - Other psychoactive substance use, unspecified, uncomplicated Status: Acute (3) Sepsis Code(s): A41.9 - Sepsis, unspecified organism Status: Acute - Plan 1. Sepsis: Temp 101.7, HR 130s, WBC 19, Source-hand abscess, s/p Blood Cultures, continue IV Abx, IVF for hydration. 2. Hand Abscess: Left. Secondary to IVDU. CT Hand w/ subcutaneous abscess, no osteomyelitis, images reviewed. Continue w/ IV Abx as above, follow up cultures, consult Hand Sx for I&D. 3. IVDU: Pt counselled. Ativan prn for withdrawal/agitation. 4. DVT Prophylaxis: SCD/Teds 5. Social work for d/c planning as needed. KEEP NPO IV FLUIDS ANTIBIOTICS PAIN CONTROL AM LABS Code Status: FULL CODE Discussed Condition With: MELVI RN AND PT AND CM Discharge Planning: PENDING CLEARANCE BY HAND SURGERY
[2017-12-07] MEDS ORDERED: Morphine Sulfate Inj 2 MG/ML Vial IV.PUSH PRN (12:22)
[2017-12-07] MEDS ORDERED: Naloxone Inj 0.4 MG/ML Vial IV.PUSH PRN (12:22)
[2017-12-07] MEDS ORDERED: Morphine Inj 4 MG/ML Vial IV.PUSH PRN ×2 (12:22)
[2017-12-07] MEDS: Vancomycin Inj 1,000 MG in Sodium Chlor 0.9% Inj 250 ML IV.SIG SCH (17:40)
--- NOTE | 2017-12-07 20:40 | ECG ---
Date Performed: 12/06/2017 Time Performed: 21:50:13 PTAGE: 42 years EKG: SINUS TACHYCARDIA WITH SHORT UT INTERVAL NONSPECIFIC T-WAVE ABNORMALITY ABNORMAL RHYTHM ECG PREVIOUS TRACING :08/26/2017 @12.02.05 Compared to previous tracing,ST-T abnormality is new. DOCTOR: Og Dey Interpretating Date/Time 12/07/2017 20:40:28
[2017-12-07] MEDS: Morphine Inj 4 MG/ML Vial IV.PUSH PRN (23:36)
[2017-12-08] MEDS: Sod Chloride 0.9% Inj 1,000 ML IV.CONT SCH ×2 (01:22→06:45)
[2017-12-08] MEDS: Vancomycin Inj 1,000 MG in Sodium Chlor 0.9% Inj 250 ML IV.SIG SCH (05:04)
[2017-12-08] MEDS: Morphine Inj 4 MG/ML Vial IV.PUSH PRN (06:30)
--- NOTE | 2017-12-08 08:10 | P.AMA ---
AMA Note - Diagnosis (1) Hand abscess (2) IVDU (intravenous drug user) (3) Sepsis AMA Statement: Patient Libertad Jansen has decided to leave the hospital against medical advice. This patient has the capacity to refuse care and understands the risks of leaving, including permanent disability and/or , and has had an opportunity to ask questions about her condition. The patient has been informed that he/she may return for care at any time, and follow up has been advised. Discharge Disposition: Against Medical Advice Patient Condition on Discharge: Stable
[2017-12-08 08:26] LABS: Baso # (Auto) 0.1 th/mm3 (0.0-0.2); Baso % (Auto) 0.5 % (0.0-2.0); Eos # (Auto) 0.1 th/mm3 (0.0-0.4); Eos % (Auto) 0.7 % (0.0-4.0); Hematocrit 38.3 % (35.0-46.0); Hemoglobin 12.5 gm/dL (11.6-15.3); Lymph % (Auto) 11.4 % (9.0-44.0); Mean Corpuscular HGB Conc 32.7 % (32.0-36.0); Mean Corpuscular Hemoglobin 27.9 pg (27.0-34.0); Mean Corpuscular Volume 85.2 fL (80.0-100.0); Mean Platelet Volume 8.5 fL (7.0-11.0); Mono # (Auto) 0.9 th/mm3 (0.0-0.9); Neut # (Auto) 14.1 th/mm3 (1.8-7.7); Neut % (Auto) 82.4 % (16.0-70.0); Platelet Count 271 th/mm3 (150-450); Red Cell Distribution Width 15.7 % (11.6-17.2); White Blood Count 17.1 th/mm3 (4.0-11.0)
[2017-12-08 09:14] LABS: Alanine Aminotransferase 55 U/L (10-53); Albumin 2.5 g/dL (3.4-5.0); Alkaline Phosphatase 98 U/L (45-117); Anion Gap 13 meq/L (5-15); Aspartate Aminotransferase 31 U/L (15-37); Blood Urea Nitrogen 13 mg/dL (7-18); Calcium 8.5 mg/dL (8.5-10.1); Carbon Dioxide 19.3 meq/L (21.0-32.0); Chloride 109 meq/L (98-107); Free T4 (Free Thyroxine) 1.13 ng/dL (0.76-1.46); Glomerular Filtration Rate Greater Than 89 mL/min (>89); Glucose,Random 62 mg/dL (74-106); Phosphorus 2.7 mg/dL (2.5-4.9); Potassium 3.5 meq/L (3.5-5.1); Sodium 141 meq/L (136-145); Thyroid Stimulating Hormone 0.143 uIU/mL (0.358-3.740); Total Protein 6.8 g/dL (6.4-8.2)
[2017-12-08 13:52] LABS: Hemoglobin A1c 5.7 % (4.3-6.0)
[2017-12-09] MEDS ORDERED: Pharmacy Ordered Lab Info OTHER ONE (04:45)
== END 2017-12-08 08:34 | disposition left against medical advice (07) ==
LOC: NEPC 18:36 → NEDA 12-07 00:32 → NEPGCP 12-07 04:51
PROVIDERS: ADMIT Hospitalist; ATTEND Hospitalist

== ENCOUNTER 2017-12-08 08:31 | Inpatient (IN) ==
--- NOTE | 2017-12-08 09:39 | ED ---
HPI General Chief complaint: Skin/Abscess/Foreign Body Stated complaint: Left Hand Complaint Time Seen by Provider: 12/08/17 09:36 Source: patient Mode of arrival: ambulatory Limitations: no limitations History of Present Illness HPI narrative: D2-year-old female patient with previous history of IV drug use, has a left hand abscess, was admitted for antibiotics and was supposed to go to the OR, became upset last night and left because nobody was feeding her. She states that she still has not eaten or drank anything. She is just upset but she is back here to get checked out and treated. He denies any new issues. Related Data Home Medications Medication Instructions Recorded Confirmed methadone 80 mg PO DAILY 10/11/17 12/08/17 Allergies Allergy/AdvReac Type Severity Reaction Status Date / Time penicillin G Allergy Severe HIVES Verified 10/11/17 12:41 sulfamethoxazole Allergy Severe SWELLING Verified 10/11/17 12:41 AND HIVES trimethoprim Allergy Severe SWELLING Verified 10/11/17 12:41 AND HIVES Review of Systems ROS: all other systems reviewed are negative PMFSH History History Provided By: Patient Medical History Medical History Hepatitis C (Acute) Bipolar 1 disorder (Acute) Surgical History Surgical History H/O breast augmentation (Acute) Social History Social History Substance History: Active Abuse Second Hand Smoke Exposure: Yes Smoking Status: Current every day smoker Tobacco Type: Cigarettes How Often Do You Have a Drink Containing Alcohol: Never Recent Travel in [facility] within the Last 8 Weeks: No Recent Out of Country Travel within the Last 8 Weeks: No Exam Narrative Exam Narrative: GENERAL: Well-developed middle-age female patient currently in moderate distress. Awake and oriented x3. SKIN: Focused skin assessment warm/dry. There is a notable large 4 cm area of fluctuance on the left hand dorsum with underlying pus drainage. Surrounding erythema and streaking up the arm. Fluctuant to palpation. HEAD: Atraumatic. Normocephalic. EYES: Pupils equal and round. No scleral icterus. No injection or drainage. ENT: No nasal bleeding or discharge. Mucous membranes pink and moist. NECK: Trachea midline. No JVD. CARDIOVASCULAR: Regular rate and rhythm. No murmur appreciated. RESPIRATORY: No accessory muscle use. Clear to auscultation. Breath sounds equal bilaterally. GASTROINTESTINAL: Abdomen soft, non-tender, nondistended. Hepatic and splenic margins not palpable. MUSCULOSKELETAL: No obvious deformities. No clubbing. No cyanosis. No edema. NEUROLOGICAL: Awake and alert. No obvious cranial nerve deficits. Motor grossly within normal limits. Normal speech. PSYCHIATRIC: Appropriate mood and affect; insight and judgment normal. Course Initial Documented Vital Signs Temperature 98.3 F 12/08/17 08:34 Pulse Rate 100 H 12/08/17 08:34 Respiratory Rate 17 12/08/17 08:34 Blood Pressure 125/71 12/08/17 08:34 Pulse Oximetry 100 12/08/17 08:34 Last Documented Vital Signs Temperature 98.3 F 12/08/17 08:34 Pulse Rate 92 H 12/08/17 09:53 Respiratory Rate 21 12/08/17 09:53 Blood Pressure 118/58 L 12/08/17 09:53 Pulse Oximetry 100 12/08/17 09:53 Medical Decision Making MDM Narrative Medical decision making narrative: Patient is coming to get further treatment for left hand abscess. Case is discussed with Dr. Santos who would like ED PA to drain the abscess and to admit the patient to medicine, to be seen by him tomorrow. Case is discussed with Dr. Chaudhari for admission. Medical Screen Exam Complete: Yes Emergency Medical Condition: Yes Differential Diagnosis Differential Diagnosis: Left hand abscess Discharge Plan Discharge Disposition Patient Disposition: 30 Still Patient Discharge Condition Condition: Stable Discharge Details Anticipated Discharge Date: 12/08/17 Diagnosis: Sepsis, Hand abscess Physicians Team ED Provider: Renetta Espinal Primary Care Provider: Primary Care Stefanie Santamaria Rxs /Orders / Referrals /Forms Prescriptions: No Action methadone 40 mg Tablet,Soluble 80 mg PO DAILY RF: 0 Discharge Interventions Interventions: Vital Signs Last Done: 12/08/17 09:53 Status ED Status: Admitted Patient
[2017-12-08] MEDS ORDERED: Bisacodyl 10 MG Supp RECTAL PRN (10:54)
[2017-12-08] MEDS ORDERED: Naloxone Inj 0.4 MG/ML Vial IV.PUSH PRN (10:54)
[2017-12-08] MEDS ORDERED: Acetaminophen 325 MG Tablet PO PRN ×2 (10:54)
[2017-12-08] MEDS ORDERED: Morphine Inj 4 MG/ML Vial IV.PUSH PRN (10:54)
[2017-12-08] MEDS ORDERED: Morphine Sulfate Inj 2 MG/ML Vial IV.PUSH PRN (10:54)
[2017-12-08] MEDS ORDERED: Vancomycin Consult Pharmacy OTHER PRN (11:07)
[2017-12-08] MEDS ORDERED: Vancomycin Consult Pharmacy 1 EACH OTHER SCH (11:15)
[2017-12-08] MEDS ORDERED: Sodium Chloride 0.9% 2 ML Flush PRN IV.FLUSH (11:23)
[2017-12-08] MEDS: Sod Chloride 0.9% Inj 1,000 ML IV.CONT SCH (11:23)
--- NOTE | 2017-12-08 11:37 | P.HPIM ---
History of Present Illness Service: [facility] Primary Care Physician: No Primary Care Physician Chief Complaint: LEFT HAND ABSCESSES History of Present Illness: Patient is a 42-year-old female with a history of IV drug use as well as hepatitis C who has a left hand abscess had been admitted for antibiotics and was supposed to go to the operating room but became upset last night and left AGAINST MEDICAL ADVICE this morning because no one was feeding her. Patient of course now returns after getting no food except for coffee. She is now upset that she came back into the hospital for treatment regarding her left hand abscess and cellulitis has already been drained in the emergency room for 2 abscesses regarding a blister on the dorsum of the left hand as well as a smaller abscess in the lateral thenar eminence We will consult hand surgery We will restart the aztreonam and Vanco and Flagyl for coverage Patient will also get pain control And will get a diet today since she has been drained earlier today Inpatient Certification: I certify that the inpatient services were ordered in accordance with Medicare regulations governing the order. This includes certification that hospital inpatient services are reasonable and necessary and in the case of services not specified as inpatient-only under 42 CFR 419.22(n), that they are appropriately provided as inpatient services in accordance to with the 2-midnight benchmark under 43 CFR 412.3(e) Estimated Total Length of Stay (Days): 3 Plans for Post Hospital Care: Not yet determined Review of Systems All other systems reviewed negative except as stated in HPI [facility] - History History Provided By: Patient - Medical History Medical History: Medical History (Last Updated 12/08/17 @ 11:26 by Jay Jay Chaudhari DO) Hepatitis C (Acute) Bipolar 1 disorder (Acute) Drug-seeking behavior IVDU (intravenous drug user) Noncompliance - Surgical History Surgical History: Surgical History (Last Reviewed 12/08/17 @ 09:37 by Renetta Espinal MD) H/O breast augmentation (Acute) - Family History Family History: Family History (Last Updated 12/08/17 @ 11:26 by Jay Jay Chaudhari DO) Other Family history of hypertension - Social History I have reviewed the patient's Social History: Yes - Tobacco History Second Hand Smoke Exposure: Yes Tobacco Use In Past 30 Days: Yes Smoking Status: Current every day smoker Tobacco Type: Cigarettes - Alcohol History How Often Do You Have a Drink Containing Alcohol: Never - Substance Use History Substance History: Active Abuse - Substance Use Type Heroin Status: Active Route Used: Intravenously Crack/Cocaine Status: Active Route Used: Inhalation - Travel History Recent Travel in the [place] Within the Last 8 Weeks: No Recent Travel Out of the Country Within the Last 8 Weeks: No - Immunization History Tetanus Immunization: Unsure Medications and Allergies Active Medications: Active Medications Acetaminophen (Tylenol) 650 mg PO Q4H PRN PRN Reason: Temp > 100.4 Acetaminophen (Tylenol) 650 mg PO Q6HR PRN PRN Reason: PAIN SCALE 1 TO 2 Al Hydroxide/Mg Hydroxide (Milk Of Magnesia Liq) 30 ml PO Q12H PRN PRN Reason: Mild Constipation Bisacodyl (Dulcolax Supp) 10 mg RECTAL DAILY PRN PRN Reason: SEVERE CONSITIPATION Sodium Chloride (Ns Inj) 1,000 mls @ 100 mls/hr IV.CONT .Q10H JOHANA Aztreonam 1,000 mg/ Sodium (Chloride) 100 mls @ 200 mls/hr IV.SIG Q8H JOHANA Metronidazole/Sodium Chloride (Flagyl 500 Mg Inj) 100 mls @ 100 mls/hr IV.SIG Q8H JOHANA Lactulose (Lactulose Liq) 30 ml PO DAILY PRN PRN Reason: SEVERE CONSITIPATION Morphine Sulfate (Morphine Inj) 2 mg IV.PUSH Q3H PRN PRN Reason: PAIN 3-5; IF UABLE TO TAKE PO Morphine Sulfate (Morphine Inj) 4 mg IV.PUSH Q3H PRN PRN Reason: BREAKTHROUGH PAIN Morphine Sulfate (Morphine Inj) 4 mg IV.PUSH Q3H PRN PRN Reason: PAIN 6-10;IF UNABLE TO TAKE PO Naloxone HCl (Narcan Inj) 0.4 mg IV.PUSH UNSCH PRN PRN Reason: SEE LABEL COMMENTS Ondansetron HCl (Zofran Inj) 4 mg IV.PUSH Q6H PRN PRN Reason: NAUSEA OR VOMITING Oxycodone HCl (Roxicodone) 5 mg PO Q4H PRN PRN Reason: PAIN SCALE 3 TO 5 Oxycodone HCl (Roxicodone) 10 mg PO Q4H PRN PRN Reason: PAIN SCALE 6 TO 10 Pharmacy Profile Note (Vancomycin Consult Pharmacy) 1 each OTHER UNSCH PRN PRN Reason: Pharmacy to dose Senna/Docusate Sodium (Cyn-Colace) 1 tab PO BID JOHANA Sennosides (Senokot) 17.2 mg PO Q12H PRN PRN Reason: Moderate Constipation Allergies Allergy/AdvReac Type Severity Reaction Status Date / Time penicillin G Allergy Severe HIVES Verified 10/11/17 12:41 sulfamethoxazole Allergy Severe SWELLING Verified 10/11/17 12:41 AND HIVES trimethoprim Allergy Severe SWELLING Verified 10/11/17 12:41 AND HIVES Home Medications Medication Instructions Recorded Confirmed Type methadone 80 mg PO DAILY 10/11/17 12/08/17 History Exam Vital signs: Vital Signs 12/08/17 08:34 12/08/17 09:53 Temperature 98.3 F Pulse Rate 100 H 92 H Respiratory Rate 17 21 Blood Pressure 125/71 118/58 L Pulse Oximetry 100 100 Intake & Output 12/07/17 12/08/17 12/08/17 18:59 06:59 18:59 Weight 49.895 kg Narrative: GENERAL: Middle-aged white female in no acute distress. SKIN: Focused skin assessment warm and dry. Status post incision and drainage on the dorsum of the left hand as well as the lateral thenar eminence HEENT: PERRLA, EOMI. No scleral icterus or conjunctival pallor. No lid lag or facial droop. CARDIOVASCULAR: Regular rate and rhythm. No obvious murmurs to auscultation. No chest tenderness to palpation. RESPIRATORY: No obvious rhonchi or wheezing. Clear to auscultation. Breath sounds equal bilaterally. GASTROINTESTINAL: Abdomen soft, non-tender, nondistended. BS normal. MUSCULOSKELETAL: Extremities without clubbing, cyanosis, or edema. No obvious deformities. Left hand erythema/edema, few areas of induration, no drainage noted, +tenderness to palpation. Has drainage LEFT WRIST AND DORSUM OF HAND NEUROLOGICAL: Awake, alert and oriented x4. No focal neurologic deficits. Moving both upper and lower extremities spontaneously. PSYCHIATRIC: Appropriate mood and affect. Insight and judgment normal. Results - Labs Labs: White blood cell count is 17.1 Hemoglobin 12.5 Hematocrit 38.3 Platelet count 271 Sodium is 141 potassium is 3.5 chloride is 109 carbon dioxide is 19.3 anion gap is 13 BUN is 13 creatinine 0.57 estimated GFR greater than 89 random glucose is 62 lactic acid was only 1.2 from a few days ago calcium was 8.5 phosphorus is 2.7 magnesium is 2.0 total bilirubin 0.9 AST is 31 ALT is 55 alk phos is 98 Total protein 6.8 albumin is 2.5 TSH was 0.43 free T4 was 1.13 Caprini VTE Risk Assessment Caprini VTE Risk Assessment: No/Low Risk (score <= 1) Caprini Risk Assessment Model: Point Value = 1 Point Value = 2 Point Value = 3 Point Value = 5 Age 41-60 Minor surgery BMI > 25 kg/m2 Swollen legs Varicose veins or History of unexplained or recurrent spontaneous Oral contraceptives or hormone replacement Sepsis (< 1 month) Serious lung disease, including pneumonia (< 1 month) Abnormal pulmonary function Acute myocardial infarction Congestive heart failure (< 1 month) History of inflammatory bowel disease Medical patient at bed rest Age 61-74 Arthroscopic surgery Major open surgery (> 45 min) Laparoscopic surgery (> 45 min) Malignancy Confined to bed (> 72 hours) Immobilizing plaster cast Central venous access Age >= 75 History of VTE Family history of VTE Factor V Leiden Prothrombin [id number] Lupus anticoagulant Anticardiolipin antibodies Elevated serum homocysteine Heparin-induced thrombocytopenia Other congenital or acquired thrombophilia Stroke (< 1 month) Elective arthroplasty Hip, pelvis, or leg fracture Acute spinal cord injury (< 1 month) Prophylaxis Regimen: Total Risk Factor Score Risk Level Prophylaxis Regimen 0-1 Low Early ambulation 2 Moderate Order ONE of the following: *Sequential Compression Device (SCD) *Heparin 5000 units SQ BID 3-4 Higher Order ONE of the following medications: *Heparin 5000 units SQ TID *Enoxaparin/Lovenox 40 mg SQ daily (WT < 150 kg, CrCl > 30 mL/min) *Enoxaparin/Lovenox 30 mg SQ daily (WT < 150 kg, CrCl > 10-29 mL/min) *Enoxaparin/Lovenox 30 mg SQ BID (WT < 150 kg, CrCl > 30 mL/min) AND/OR *Sequential Compression Device (SCD) 5 or more Highest Order ONE of the following medications: *Heparin 5000 units SQ TID (Preferred with Epidurals) *Enoxaparin/Lovenox 40 mg SQ daily (WT < 150 kg, CrCl > 30 mL/min) *Enoxaparin/Lovenox 30 mg SQ daily (WT < 150 kg, CrCl > 10-29 mL/min) *Enoxaparin/Lovenox 30 mg SQ BID (WT < 150 kg, CrCl > 30 mL/min) AND *Sequential Compression Device (SCD) Assessment and Plan - Plan Sepsis previously had a temperature of 100.7 continue on aztreonam, Flagyl, vancomycin with pharmacy to dose. Had blood cultures from last admission Left hand abscess status post incision and drainage by the emergency room physician abscesses continue on Flagyl and aztreonam and vancomycin History of IV drug use recommend cocaine and heroin cessation Malignant medical noncompliance since patient left AGAINST MEDICAL ADVICE and then returned right back to the hospital soon after leaving AGAINST MEDICAL ADVICE did not even go shoot up drugs or do any drugs Tobacco abuse recommend smoking cessation Will consult hand surgery continue on current antibiotics A.m. labs We will give her a regular diet Nicotine patch Pepcid Code Status: Full code Discussed Condition With: RN and patient and emergency room physician Discharge Planning: Pending improvement of her left hand
[2017-12-08] MEDS: Famotidine 20 MG Tablet PO SCH ×2 (13:23→21:59)
[2017-12-08] MEDS: Morphine Inj 4 MG/ML Vial IV.PUSH PRN ×2 (15:50→19:16)
[2017-12-08] MEDS: Vancomycin Inj 1,000 MG in Sodium Chlor 0.9% Inj 250 ML IV.SIG SCH (16:02)
[2017-12-08] MEDS ORDERED: Influenza (Quadrivalent) Vaccine 0.5 ML Syringe IM ONE (16:15)
[2017-12-08] MEDS: LORazepam 0.5 MG Tablet PO PRN (17:28)
[2017-12-08] MEDS: Senna/Docusate Sodium 8.6/50 MG Tablet PO SCH (21:59)
[2017-12-08] MEDS: Sodium Chloride 0.9% 2 ML Flush BID IV.FLUSH SCH (22:00)
[2017-12-09] MEDS: Sod Chloride 0.9% Inj 1,000 ML IV.CONT SCH ×3 (01:29→16:05)
[2017-12-09] MEDS ORDERED: Pharmacy Ordered Lab Info OTHER ONE (04:45)
[2017-12-09] MEDS: Vancomycin Inj 1,000 MG in Sodium Chlor 0.9% Inj 250 ML IV.SIG SCH ×3 (06:52→23:39)
[2017-12-09 08:36] LABS: Baso # (Auto) 0.1 th/mm3 (0.0-0.2); Baso % (Auto) 1.1 % (0.0-2.0); Eos # (Auto) 0.2 th/mm3 (0.0-0.4); Eos % (Auto) 1.7 % (0.0-4.0); Hematocrit 35.3 % (35.0-46.0); Hemoglobin 11.8 gm/dL (11.6-15.3); Lymph # (Auto) 1.7 th/mm3 (1.0-4.8); Lymph % (Auto) 17.2 % (9.0-44.0); Mean Corpuscular HGB Conc 33.4 % (32.0-36.0); Mean Corpuscular Hemoglobin 28.2 pg (27.0-34.0); Mean Corpuscular Volume 84.3 fL (80.0-100.0); Mean Platelet Volume 8.6 fL (7.0-11.0); Mono # (Auto) 0.8 th/mm3 (0.0-0.9); Mono % (Auto) 7.9 % (0.0-8.0); Neut # (Auto) 7.2 th/mm3 (1.8-7.7); Neut % (Auto) 72.1 % (16.0-70.0); Platelet Count 291 th/mm3 (150-450); Red Blood Count 4.19 mil/mm3 (4.00-5.30); Red Cell Distribution Width 15.5 % (11.6-17.2); White Blood Count 9.9 th/mm3 (4.0-11.0)
[2017-12-09 08:57] LABS: Albumin 2.3 g/dL (3.4-5.0); Anion Gap 9 meq/L (5-15); Aspartate Aminotransferase 27 U/L (15-37); Blood Urea Nitrogen 7 mg/dL (7-18); Calcium 8.1 mg/dL (8.5-10.1); Carbon Dioxide 25.3 meq/L (21.0-32.0); Chloride 110 meq/L (98-107); Glomerular Filtration Rate Greater Than 89 mL/min (>89); Glucose,Random 111 mg/dL (74-106); Potassium 3.9 meq/L (3.5-5.1); Sodium 144 meq/L (136-145)
[2017-12-09 08:58] LABS: Alanine Aminotransferase 45 U/L (10-53)
[2017-12-09 09:00] LABS: Alkaline Phosphatase 91 U/L (45-117); Total Protein 6.2 g/dL (6.4-8.2)
[2017-12-09] MEDS: Famotidine 20 MG Tablet PO SCH ×2 (09:14→20:45)
[2017-12-09] MEDS: Senna/Docusate Sodium 8.6/50 MG Tablet PO SCH ×2 (09:14→20:45)
[2017-12-09] MEDS: Sodium Chloride 0.9% 2 ML Flush BID IV.FLUSH SCH ×3 (09:15→20:44)
[2017-12-09] MEDS: LORazepam 0.5 MG Tablet PO PRN ×3 (09:21→22:49)
[2017-12-09] MEDS: Morphine Inj 4 MG/ML Vial IV.PUSH PRN ×3 (11:30→20:47)
--- NOTE | 2017-12-09 12:53 | P.PN ---
Subjective Interval history: Follow up left hand cellulitis: Patient seen and examined, upset about her breakfast being cold. Complaining of significant pain to left hand, indicates that morphine and Percocet is not helping. Having loose stools, no abdominal pain, no nausea, no vomiting. No chest pain, no shortness of breath. No fever Physical Exam Vital signs: Vital Signs 12/08/17 16:00 12/08/17 20:00 12/09/17 00:00 Temperature 98.2 F 98.0 F 97.3 F L Pulse Rate 100 H 97 H 87 Respiratory Rate 18 18 20 Blood Pressure 119/61 120/56 L 127/68 Pulse Oximetry 100 97 97 12/09/17 04:00 12/09/17 08:00 12/09/17 12:00 Temperature 98.2 F 98.5 F 98.5 F Pulse Rate 80 75 68 Respiratory Rate 18 18 Blood Pressure 127/69 129/72 128/74 Pulse Oximetry 97 97 94 L Intake & Output 12/08/17 12/09/17 12/09/17 19:59 06:59 18:59 Intake Total 250 / 250 Balance 250 / 250 Weight Intake: IV 250 / 250 NS Inj 1,000 ML @ 100 mls/hr IV .CONT .Q10H JOHANA Rx#:[id number] Azactam Inj 1,000 MG In NS Inj 100 ML @ 200 mls/hr IV.SIG Q8H JOHANA Rx#:[id number] Vancomycin Inj 1,000 MG In NS 250 / 250 Inj 250 ML @ 250 mls/hr IV.SIG Q12H JOHANA Rx#:[id number] Flagyl 500 MG Inj 100 ML @ 100 mls/hr IV.SIG Q8H JOHANA Rx#: [id number] Oral Other: # Voids Date of Last Bowel Movement 12/09/17 Narrative: GENERAL: Well-nourished, well-developed patient in no apparent distress. SKIN: Warm and dry. HEAD: Atraumatic. Normocephalic. EYES: Pupils equal and round. No scleral icterus. No injection or drainage. ENT: No nasal bleeding or discharge. Mucous membranes pink and moist. NECK: Trachea midline. No JVD. CARDIOVASCULAR: Regular rate and rhythm. RESPIRATORY: No accessory muscle use. Clear to auscultation. Breath sounds equal bilaterally. GASTROINTESTINAL: Abdomen soft, non-tender, nondistended. Hepatic and splenic margins not palpable. MUSCULOSKELETAL: left hand with dressing in place, fingers are swollen, intact sensation, able to move them slowly. No other joint abnormality. Bilateral lower extremities without any clubbing, no cyanosis, no edema. Pedal pulses 2+ bilateral NEUROLOGICAL: Awake and alert. No obvious cranial nerve deficits. Motor grossly within normal limits. Five out of 5 muscle strength in the arms and legs. Normal speech. PSYCHIATRIC: Appropriate mood and affect; insight and judgment normal. Results - Labs CBC & Chem 7: 12/09/17 07:56 12/09/17 07:56 Laboratory Results - last 24 hr 12/09/17 12/09/17 12/09/17 04:40 07:56 07:56 WBC 9.9 RBC 4.19 Hgb 11.8 Hct 35.3 MCV 84.3 MCH 28.2 MCHC 33.4 RDW 15.5 Plt Count 291 MPV 8.6 Neut % (Auto) 72.1 H Lymph % (Auto) 17.2 [place] % (Auto) 7.9 Eos % (Auto) 1.7 Baso % (Auto) 1.1 Neut # (Auto) 7.2 Lymph # (Auto) 1.7 [place] # (Auto) 0.8 Eos # (Auto) 0.2 Baso # (Auto) 0.1 WBC Differential . Differential Comment Auto diff final Sodium 144 Potassium 3.9 Chloride 110 H Carbon Dioxide 25.3 Anion Gap 9 BUN 7 Creatinine 0.69 Estimated GFR Greater than 89 Random Glucose 111 H Calcium 8.1 L Total Bilirubin 0.4 AST 27 ALT 45 Alkaline Phosphatase 91 Total Protein 6.2 L D Albumin 2.3 L Vancomycin Trough 4.8 L Microbiology 12/08/17 11:30 Wound - Hand Gram Stain - Final 12/08/17 11:30 Wound - Hand Wound Culture - Preliminary Group A beta Strep Assessment and Plan - Assessment (1) Hand abscess Code(s): L02.519 - Cutaneous abscess of unspecified hand Status: Acute (2) Sepsis Code(s): A41.9 - Sepsis, unspecified organism Status: Acute (3) IVDU (intravenous drug user) Code(s): F19.90 - Other psychoactive substance use, unspecified, uncomplicated Status: Chronic (4) Hepatitis C Code(s): B19.20 - Unspecified viral hepatitis C without hepatic coma Status: Chronic (5) Bipolar 1 disorder Code(s): F31.9 - Bipolar disorder, unspecified Status: Chronic (6) Non compliance w medication regimen Code(s): Z91.14 - Patient's other noncompliance with medication regimen Status : Acute - Plan Patient is a 42-year-old female with a history of IV drug use as well as hepatitis C who has a left hand abscess had been admitted for antibiotics 12/06 and was supposed to go to the operating room but became upset and left AGAINST MEDICAL ADVICE because she was NPO. Pt. presented back later for same. Sepsis, initially with elevated temp, tachycardic and leukocytosis. Afebrile, WBC back to normal Continue with empiric antibiotics-as as Azactam/Flagyl/Vanco. Patient with penicillin allergy Culture positive for group a beta strep, contacted micro for further sensitivity Consult ID Continue with morphine and oxycodone for pain management Left hand abscess status post incision and drainage by the emergency room physician -Continue with antibiotics and follow cultures Hand surgeon on consultation pending -Maintain left hand elevated History of IV drug use Positive urine tox screen -Recommend cessation of cocaine and heroin -Ativan as needed for withdrawal Medical noncompliance, pt. 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 Tobacco abuse -counseling done -Nicotine patch Bipolar disorder, not on any medications Continue to monitor Hepatitis C, untreated DVT prophylaxispatient ambulatory Code Status: Full code Discussed Condition With: RN, pt, CM Discharge Planning: Not ready for dc, likely home. Will need to finish tx here due to hx of IVDU (2) Sepsis Qualifiers: Sepsis type: Streptococcus group A Qualified Code(s): A40.0 - Sepsis due to streptococcus, group A (4) Hepatitis C Qualifiers: Viral hepatitis chronicity: chronic Hepatic coma status: without hepatic coma Qualified Code(s): B18.2 - Chronic viral hepatitis C
--- NOTE | 2017-12-09 14:19 | OTSOAPIP ---
RECEIVED OCCUPATIONAL THERAPY CONSULT. PATIENT IS CURRENTLY AWAITING HAND SURGEON CONSULTATION; WILL AWAIT HAND SURGEON CLEARANCE AND POSSIBLE SURGERY TO SEE THIS PATIENT PATIENT WAS PREVIOUSLY SCHEDULED FOR SURGERY THEN LEFT AGAINST MEDICAL ADVICE ON 12/08/17 BEFORE RETURNING BACK TO HOSPITAL FOR CURRENT ADMISSION. Therapist: Nia Castañeda, OTR/L Signature on file
[2017-12-09] MEDS: Lactobacillus Acidophilus/L. Spores Tablet PO SCH (17:10)
--- NOTE | 2017-12-09 17:29 | MB ---
cc: Tiana Santos MD DATE: 12/09/2017 The patient is being seen at the request of Dr. Jay Jay Chaudhari. REASON FOR CONSULTATION: Multiple abscesses of the left upper extremity. HISTORY OF PRESENT ILLNESS: The patient is a 42-year-old female who came to the emergency room on 12/06/2017. At that time, a hand consult was requested, but there is confusion as to whether or not the on-call physician received it. The patient left the following day and then returned after getting some food. I was called and asked the PA in the emergency room to drain the abscesses. This was done. Consultation is requested regarding evaluation and treatment of the adequacy of the drainage and the patient's condition. PAST MEDICAL HISTORY: The patient has a history of IV drug abuse. She also has history of hepatitis C. REVIEW OF SYSTEMS: Normal except as noted above. SOCIAL HISTORY: The patient is a current everyday smoker of cigarettes. She does not use alcohol. She actively abuses heroin. ALLERGIES: PENICILLIN. PHYSICAL EXAMINATION: GENERAL: The patient is lying comfortably in bed. VITAL SIGNS: Temperature is 98.5, respirations 18, pulse 68, blood pressure 128/74, pulse oximetry is 94 on room air. HEENT: Extraocular muscles are intact. Pupils are equal, round and reactive to light. Mouth is clear. NECK: Supple without masses. LUNGS: Clear. HEART: Regular rate and rhythm. EXTREMITIES: Examination of the upper extremities reveals a closed incision on the dorsal aspect of the left wrist and area of the thumb. She also has another incision which appears to have been closed on the ulnar aspect of the hand in the area of the wrist proximal to this. There is swelling over the ulnar styloid. This area is tender and somewhat stretched. There may be some fluctuance. LABORATORY DATA: The patient's white count today is 9.9, and there is a slight elevation of the neutrophils. The wound culture grew out group A beta-hemolytic Streptococcus. IMPRESSION: The patient has several abscesses of the left upper extremity which have been drained. PLAN: The patient is advised that if there is not significant improvement by tomorrow morning, I will take her to the operating room to explore the areas of possible abscess formation. The patient understands and accepts the risks and complication of the procedure and is in agreement with the treatment plan. MD VELVET Downey/osito , 04:52 PM , 05:01 PM
--- NOTE | 2017-12-09 18:09 | P.CONID ---
History of Present Illness Service: ID Consult date: 12/09/17 Requesting Physician: Jemma Reyna Reason for Consult: Left hand abscess/cellulitis, Hx IVDU Primary Care Provider: No Primary Care Physician Chief Complaint: LEFT HAND ABSCESSES History of Present Illness: 42 yo F with active IVDU, shooting into her LUE developped swelling, pain redness about 4-5 days ago + fevers, resolvved Now c/o worsening swelling going uop the forearm CT hand was done and showed abscess sp bedside I+D yday in ER Pt c/o diarrhea with 3 loose BMs, nop abdominal pain seen bynhand surgeon [place] PCN nathaly (hives), can not recall if took keflex in the past growing Group A beta strep she also c/o neck pain Review of Systems All other systems reviewed negative except as stated in HPI PMFSH - History History Provided By: Patient - Medical History Medical History: Medical History (Last Reviewed 12/09/17 @ 18:05 by Deya Monroe MD) Hepatitis C (Chronic) Bipolar 1 disorder (Chronic) Drug-seeking behavior IVDU (intravenous drug user) Noncompliance - Surgical History Surgical History: Surgical History (Last Reviewed 12/09/17 @ 18:05 by Deya Monroe MD) H/O breast augmentation (Acute) - Family History Family History: Family History (Last Reviewed 12/09/17 @ 18:05 by Deya Monroe MD) Other Family history of hypertension - Social History I have reviewed the patient's Social History: Yes - Tobacco History Second Hand Smoke Exposure: Yes Tobacco Use In Past 30 Days: Yes Smoking Status: Current every day smoker Tobacco Type: Cigarettes - Alcohol History How Often Do You Have a Drink Containing Alcohol: Never - Substance Use History Substance History: Active Abuse - Substance Use Type Heroin Status: Active Route Used: Intravenously Reason for Use: Feels Good Crack/Cocaine Status: Active Route Used: By Mouth Reason for Use: Feels Good - Travel History Recent Travel in the [place] Within the Last 8 Weeks: No Recent Travel Out of the Country Within the Last 8 Weeks: No - Immunization History Tetanus Immunization: Unsure Hx Influenza Vaccine This Season: No Medications and Allergies Active Medications: Active Medications Acetaminophen (Tylenol) 650 mg PO Q4H PRN PRN Reason: Temp > 100.4 Acetaminophen (Tylenol) 650 mg PO Q6HR PRN PRN Reason: PAIN SCALE 1 TO 2 Al Hydroxide/Mg Hydroxide (Milk Of Magnesia Liq) 30 ml PO Q12H PRN PRN Reason: Mild Constipation Bisacodyl (Dulcolax Supp) 10 mg RECTAL DAILY PRN PRN Reason: SEVERE CONSITIPATION Clonidine HCl (Catapres) 0.1 mg PO Q6H PRN PRN Reason: SBP>160 OR DBP >95 Famotidine (Pepcid) 20 mg PO BID [facility] Last Admin: 12/09/17 09:14 Dose: 20 mg Sodium Chloride (Ns Inj) 1,000 mls @ 100 mls/hr IV.CONT .Q10H [facility] Last Infusion: 12/09/17 16:05 Dose: 100 mls/hr Aztreonam 1,000 mg/ Sodium (Chloride) 100 mls @ 200 mls/hr IV.SIG Q8H [facility] Last Infusion: 12/09/17 13:56 Dose: Infused Metronidazole/Sodium Chloride (Flagyl 500 Mg Inj) 100 mls @ 100 mls/hr IV.SIG Q8H [facility] Last Infusion: 12/09/17 12:30 Dose: Infused Vancomycin HCl 1,000 mg/ (Sodium Chloride) 250 mls @ 250 mls/hr IV.SIG Q8H [facility] Last Infusion: 12/09/17 15:23 Dose: Infused Ibuprofen (Motrin) 800 mg PO Q8H PRN PRN Reason: SEE LABEL COMMENTS Last Admin: 12/09/17 17:59 Dose: 800 mg Lactobacillus Acidophilus (Lactinex) 1 tab PO TID [facility] Last Admin: 12/09/17 17:10 Dose: 1 tab Lactulose (Lactulose Liq) 30 ml PO DAILY PRN PRN Reason: SEVERE CONSITIPATION Lorazepam (Ativan) 0.5 mg PO Q6H PRN PRN Reason: ANXIETY Last Admin: 12/09/17 15:31 Dose: 0.5 mg Miscellaneous Information ([facility] Ordered Lab Info) 0 each OTHER ONCE ONE Stop: 12/10/17 05:46 Morphine Sulfate (Morphine Inj) 4 mg IV.PUSH Q4H PRN PRN Reason: BREAKTHROUGH PAIN Last Admin: 12/09/17 15:31 Dose: 4 mg Naloxone HCl (Narcan Inj) 0.4 mg IV.PUSH UNSCH PRN PRN Reason: SEE LABEL COMMENTS Nicotine (Habitrol 14 Mg Patch.24 Hr) 1 patch T-DERMAL DAILY [facility] Last Admin: 12/09/17 09:15 Dose: Not Given Ondansetron HCl (Zofran Inj) 4 mg IV.PUSH Q6H PRN PRN Reason: NAUSEA OR VOMITING Oxycodone HCl (Roxicodone) 5 mg PO Q4H PRN PRN Reason: PAIN SCALE 3 TO 5 Oxycodone HCl (Roxicodone) 10 mg PO Q4H PRN PRN Reason: PAIN SCALE 6 TO 10 Last Admin: 12/09/17 18:00 Dose: 10 mg Patch Removal (Remove Old Patch) 1 each T-DERMAL DAILY [facility] Last Admin: 12/09/17 09:16 Dose: Not Given Pharmacy Profile Note (Vancomycin Consult Pharmacy) 1 each OTHER UNSCH PRN PRN Reason: Pharmacy to dose Senna/Docusate Sodium (Cyn-Colace) 1 tab PO BID [facility] Last Admin: 12/09/17 09:14 Dose: 1 tab Sennosides (Senokot) 17.2 mg PO Q12H PRN PRN Reason: Moderate Constipation Sodium Chloride (Ns Flush) 2 ml IV.FLUSH BID [facility] Last Admin: 12/09/17 09:17 Dose: Not Given Sodium Chloride (Ns Flush) 2 ml IV.FLUSH PRN PRN PRN Reason: FLUSH AFTER USING IV ACCESS Allergies Allergy/AdvReac Type Severity Reaction Status Date / Time penicillin G Allergy Severe HIVES Verified 10/11/17 12:41 sulfamethoxazole Allergy Severe SWELLING Verified 10/11/17 12:41 AND HIVES trimethoprim Allergy Severe SWELLING Verified 10/11/17 12:41 AND HIVES Home Medications Medication Instructions Recorded Confirmed Type methadone 80 mg PO DAILY 10/11/17 12/08/17 History Exam Vital signs: Vital Signs 12/08/17 20:00 12/09/17 00:00 12/09/17 04:00 Temperature 98.0 F 97.3 F L 98.2 F Pulse Rate 97 H 87 80 Respiratory Rate 18 20 20 Blood Pressure 120/56 L 127/68 127/69 Pulse Oximetry 97 97 97 12/09/17 08:00 12/09/17 12:00 Temperature 98.5 F 98.5 F Pulse Rate 75 68 Respiratory Rate 18 18 Blood Pressure 129/72 128/74 Pulse Oximetry 97 94 L Intake & Output 12/08/17 12/09/17 12/09/17 19:59 06:59 18:59 Intake Total 1300 / 1300 Balance 1300 / 1300 Weight Intake: IV 1300 / 1300 NS Inj 1,000 ML @ 100 mls/hr IV 600 / 600 .CONT .Q10H [facility] Rx#:[id number] Azactam Inj 1,000 MG In NS Inj 100 / 100 100 ML @ 200 mls/hr IV.SIG Q8H [facility] Rx#:[id number] Vancomycin Inj 1,000 MG In NS 500 / 500 Inj 250 ML @ 250 mls/hr IV.SIG Q8H [facility] Rx#:[id number] Flagyl 500 MG Inj 100 ML @ 100 100 / 100 mls/hr IV.SIG Q8H [facility] Rx#: [id number] Oral Other: # Voids Date of Last Bowel Movement 12/09/17 - Constitutional no acute distress, thin - Routine HEENT Exam Head: Present: normocephalic, atraumatic Eye: Present: EOMI, PERRL. Absent: scleral injection ENT: Present: mucous membranes moist, oropharynx clear - Routine Neck Exam Present: supple, full ROM. Absent: lymphadenopathy - Routine Chest/Breast/Axilla Exam Breast: Present: mass (RUQ balloting smoth mass cw h/o ruptured implant) Axillae: Absent: lymphadenopathy - Routine Respiratory Exam Present: CTA bilaterally. Absent: accessory muscle use, respiratory distress, rhonchi - Routine Cardiovascular Exam Present: RRR, S1, S2. Absent: murmur, gallop, rubs - Routine Abdominal Exam Present: soft, normoactive bowel sounds. Absent: tenderness, distended, organomegaly, mass - Routine Extremities Exam Present: edema (L hand , foream). Absent: cyanosis, clubbing Comments: Status localis: L forearm with edema, induration , tenderness, ascending erythema, dorsum of L hand edematous, erythematous wound is packed - Routine Skin Exam Present: dry, warm. Absent: jaundice, rash - Routine Neurological Exam Present: alert, oriented X3, CN II-XII intact, normal speech. Absent: sensory deficit, motor deficit - Routine Psychiatric Exam Present: normal affect, cooperative. Absent: auditory hallucinations, visual hallucinations Results - Labs CBC & Chem 7: 12/09/17 07:56 12/09/17 07:56 Labs: Laboratory Results - last 24 hr 12/09/17 12/09/17 12/09/17 04:40 07:56 07:56 WBC 9.9 RBC 4.19 Hgb 11.8 Hct 35.3 MCV 84.3 MCH 28.2 MCHC 33.4 RDW 15.5 Plt Count 291 MPV 8.6 Neut % (Auto) 72.1 H Lymph % (Auto) 17.2 [place] % (Auto) 7.9 Eos % (Auto) 1.7 Baso % (Auto) 1.1 Neut # (Auto) 7.2 Lymph # (Auto) 1.7 [place] # (Auto) 0.8 Eos # (Auto) 0.2 Baso # (Auto) 0.1 WBC Differential . Differential Comment Auto diff final Sodium 144 Potassium 3.9 Chloride 110 H Carbon Dioxide 25.3 Anion Gap 9 BUN 7 Creatinine 0.69 Estimated GFR Greater than 89 Random Glucose 111 H Calcium 8.1 L Total Bilirubin 0.4 AST 27 ALT 45 Alkaline Phosphatase 91 Total Protein 6.2 L D Albumin 2.3 L Vancomycin Trough 4.8 L Assessment and Plan - Plan IVDU L hand abscess, GAS worsening ascending LUE edema abs associated diarrhea L neck pain ? stairn cont vancomycin dc azctam, flagyl add clindamycin MR L forearm agree with plan for OR monitor neck pain, if worse/persistent will MR neck chkc.diff if persistent diarrhea
[2017-12-09] MEDS ORDERED: Gadobutrol PF 7.5 MMOL/7.5 ML Vial (for RAD) IV.SIG ONE (20:24)
[2017-12-09] MEDS ORDERED: Chlorhexidine Gluconate 2% 1 Pack (2 Cloths) TOPICAL ONE (21:05)
--- NOTE | 2017-12-09 21:11 | MR ---
EXAM DATE: 12/09/2017 8:28 PM EST AGE/SEX: 42 years / Female INDICATIONS: Cellulitis. CLINICAL DATA: This is the patient's initial encounter. Patient reports that signs and symptoms have been present for 1 day and indicates a pain score of 0/10. MEDICAL/SURGICAL HISTORY: Hepatitis C. IVDU. . Breast augmentation. COMPARISON: [facility] [place], [place] HAND LEFT W CONTRAST, 12/06/2017. . TECHNIQUE: Multiplanar, multisequence MRI examination was performed without and with 5 ml Gadavist ( gadobutrol) contrast as single exam dose. FINDINGS: 13 mm rim-enhancing fluid collection dorsally/medially at the level of the distal carpus/proximal sanchez nd again noted and not significantly changed. Slightly more distal, dorsal to the second and third me tacarpals is a disc shaped fluid collection measuring 10 mm in diameter and 4 mm in maximal thickness which may be new. Dorsal to the base of the first metacarpal is a 7 x 11 x 8 mm fluid collection whi ch also appears new. No other organized fluid seen. The forearm has diffuse subcutaneous swelling and edema consistent wit h cellulitis. Muscles and neurovascular structures are within normal limits. The left radius and ulna are within normal limits without osteomyelitis. CONCLUSION: 1. Diffuse subcutaneous swelling and edema of the forearm consistent with generalized cellulitis. No abscess of the forearm 2. Small subcutaneous abscess dorsal to the fourth and fifth carpometacarpal joints is not significa ntly changed from the comparison CT. A small and potentially new subcutaneous abscess is seen slightl y more distal, dorsal to the second and third metacarpals. There is also a small subcutaneous abscess dorsal to the base of the first metacarpal which also appears new. 3. No evidence of osteomyelitis. Electronically signed by: Edgardo Plata MD 12/09/2017 9:09 PM EST
[2017-12-09] MEDS ORDERED: Sodium Chlor 0.9% Inj 500 ML IV.SIG SCH (22:00)
[2017-12-10] MEDS ORDERED: Pharmacy Ordered Lab Info OTHER ONE (05:45)
[2017-12-10] MEDS: LORazepam 0.5 MG Tablet PO PRN ×2 (06:54→13:15)
[2017-12-10] MEDS: Vancomycin Inj 1,000 MG in Sodium Chlor 0.9% Inj 250 ML IV.SIG SCH ×2 (08:13→14:51)
[2017-12-10] MEDS: Famotidine 20 MG Tablet PO SCH (08:17)
[2017-12-10] MEDS: Morphine Inj 4 MG/ML Vial IV.PUSH PRN ×2 (08:17→12:35)
[2017-12-10] MEDS: Lactobacillus Acidophilus/L. Spores Tablet PO SCH ×3 (08:18→18:17)
[2017-12-10] MEDS: Senna/Docusate Sodium 8.6/50 MG Tablet PO SCH (08:18)
[2017-12-10] MEDS: Sodium Chloride 0.9% 2 ML Flush BID IV.FLUSH SCH (08:18)
[2017-12-10] MEDS ORDERED: Bupivacaine 0.25% Inj 50 ML MDV Vial INFILTRATN ONE (09:45)
--- NOTE | 2017-12-10 10:27 | P.PN ---
Subjective Interval history: Follow up left hand cellulitis: Patient seen and examined, left hand with less swelling, able to move fingers and wrist better. No fever. Loose stools. No n/ v. NPO. Ibuprofen helped with pain and she slept well. Dr. Santos in to see pt. Evaluated hand, will do bedside I/D. Pt. agreeable. Physical Exam Vital signs: Vital Signs 12/09/17 12:00 12/09/17 16:00 12/09/17 20:00 Temperature 98.5 F 98.0 F 97.5 F L Pulse Rate 68 70 77 Respiratory Rate 18 18 17 Blood Pressure 128/74 132/65 136/67 Pulse Oximetry 94 L 99 98 12/10/17 00:00 12/10/17 08:00 12/10/17 08:20 Temperature 97.6 F 97.5 F L Pulse Rate 74 68 Respiratory Rate 18 18 8 L Blood Pressure 136/68 137/78 Pulse Oximetry 98 99 Intake & Output 12/09/17 12/10/17 12/10/17 18:59 06:59 18:59 Intake Total 2019 1070 / 1070 200 / 200 Balance 2019 1070 / 1070 200 / 200 Weight 49.8 kg Intake: IV 1300 / 1300 450 / 450 200 / 200 NS Inj 1,000 ML @ 100 mls/hr IV 600 / 600 .CONT .Q10H [facility] Rx#:[id number] Azactam Inj 1,000 MG In NS Inj 100 / 100 100 / 100 100 / 100 100 ML @ 200 mls/hr IV.SIG Q8H [facility] Rx#:[id number] Vancomycin Inj 1,000 MG In NS 500 / 500 250 / 250 Inj 250 ML @ 250 mls/hr IV.SIG Q8H [facility] Rx#:[id number] Flagyl 500 MG Inj 100 ML @ 100 100 / 100 100 / 100 100 / 100 mls/hr IV.SIG Q8H [facility] Rx#: [id number] Oral 720 / 720 620 / 620 Other: # Voids 4 850 Date of Last Bowel Movement 12/09/17 12/09/17 # Bowel Movements 1 Narrative: GENERAL: Well-nourished, well-developed patient in no apparent distress. SKIN: Warm and dry. HEAD: Atraumatic. Normocephalic. EYES: Pupils equal and round. No scleral icterus. No injection or drainage. ENT: No nasal bleeding or discharge. Mucous membranes pink and moist. NECK: Trachea midline. No JVD. CARDIOVASCULAR: Regular rate and rhythm. RESPIRATORY: No accessory muscle use. Clear to auscultation. Breath sounds equal bilaterally. GASTROINTESTINAL: Abdomen soft, non-tender, nondistended. Hepatic and splenic margins not palpable. MUSCULOSKELETAL: Left hand fingertips less swollen. Ulcerated area to hand dorsum, minimal drainage. Has a blister to base of right thumb. Area on wrist with fluctuance, tender. Improved from yesterday. No other joint abnormality. Bilateral lower extremities without any clubbing, no cyanosis, no edema. Pedal pulses 2+ bilateral NEUROLOGICAL: Awake and alert. No obvious cranial nerve deficits. Motor grossly within normal limits. Five out of 5 muscle strength in the arms and legs. Normal speech. PSYCHIATRIC: Appropriate mood and affect; insight and judgment normal. Results - Labs CBC & Chem 7: 12/09/17 07:56 12/09/17 07:56 Laboratory Results - last 24 hr 12/10/17 06:00 Vancomycin Trough 15.9 H Microbiology 12/08/17 11:30 Wound - Hand Gram Stain - Final 12/08/17 11:30 Wound - Hand Wound Culture - Preliminary Group A beta Strep - Imaging Impressions Forearm MRI 12/09/17 00:00 CONCLUSION: 1. Diffuse subcutaneous swelling and edema of the forearm consistent with generalized cellulitis. No abscess of the forearm 2. Small subcutaneous abscess dorsal to the fourth and fifth carpometacarpal joints is not significantly changed from the comparison CT. A small and potentially new subcutaneous abscess is seen slightly more distal, dorsal to the second and third metacarpals. There is also a small subcutaneous abscess dorsal to the base of the first metacarpal which also appears new. 3. No evidence of osteomyelitis. Assessment and Plan - Assessment (1) Hand abscess Code(s): L02.519 - Cutaneous abscess of unspecified hand Status: Acute (2) Sepsis Code(s): A41.9 - Sepsis, unspecified organism Status: Acute (3) IVDU (intravenous drug user) Code(s): F19.90 - Other psychoactive substance use, unspecified, uncomplicated Status: Chronic (4) Hepatitis C Code(s): B19.20 - Unspecified viral hepatitis C without hepatic coma Status: Chronic (5) Bipolar 1 disorder Code(s): F31.9 - Bipolar disorder, unspecified Status: Chronic (6) Non compliance w medication regimen Code(s): Z91.14 - Patient's other noncompliance with medication regimen Status : Acute - Plan Patient is a 42-year-old female with a history of IV drug use as well as hepatitis C who has a left hand abscess had been admitted for antibiotics 12/06 and was supposed to go to the operating room but became upset and left AGAINST MEDICAL ADVICE because she was NPO. Pt. presented back later for same. Sepsis, initially with elevated temp, tachycardic and leukocytosis. Afebrile, WBC back to normal Continue with antibiotics-Vanco and Clindamycin Patient with penicillin allergy Culture positive for group a beta strep, contacted micro for further sensitivity appreciate ID input, Discontinued Azactam and Flagyl. -will wait for further recommendations Left hand abscess status post incision and drainage by the emergency room physician appreciate Dr. Santos's input -Maintain left hand elevated -continue Ibuprofen -Continue with morphine and oxycodone for pain management -s/p left hand bedside I/D 12/10 -continue with wound care-at home clean betadine soaks, apply telfa and wrap with kari. History of IV drug use Positive urine tox screen -Recommend cessation of cocaine and heroin -Ativan as needed for withdrawal Medical noncompliance, pt. left AMA -prevocational/rehabilitation counselor to remain in hospital to complete treatment. Tobacco abuse -counseling done -Nicotine patch Bipolar disorder, not on any medications Continue to monitor Hepatitis C, untreated DVT prophylaxispatient ambulatory Cleared for dc by Dr. Santos Code Status: Full code Discussed Condition With: RN, Pt, Dr. Santos Discharge Planning: Clear for dc by Dr. Santos, will wait for ID for recommendations. Poss dc today if PO abx recommended. (2) Sepsis Qualifiers: Sepsis type: Streptococcus group A Qualified Code(s): A40.0 - Sepsis due to streptococcus, group A (4) Hepatitis C Qualifiers: Viral hepatitis chronicity: chronic Hepatic coma status: without hepatic coma Qualified Code(s): B18.2 - Chronic viral hepatitis C
--- NOTE | 2017-12-10 10:38 | P.BOP ---
Date of procedure: 12/10/17 Procedure: Incision and drainage of abscess of the left wrist. Anesthesia: local Surgeon: Tiana Santos MD Estimated blood loss (mL): 10 Tourniquet time (min): 0 Pathology: none sent Condition: stable Disposition: no change
--- NOTE | 2017-12-10 12:01 | MP ---
cc: Tiana Santos MD DATE OF OPERATION: 12/10/2017 PREOPERATIVE DIAGNOSIS: Abscess, left wrist. POSTOPERATIVE DIAGNOSIS: Abscess, left wrist. PROCEDURE PERFORMED: Incision and drainage of abscess of left wrist. ANESTHESIA: Local. SURGEON: Dr. Santos. INDICATIONS: A 42-year-old female with history of IV drug abuse; developed several abscesses. These were drained partially in the emergency room. Additional abscess formed so which drainage was indicated. FINDINGS: The patient had another abscess proximal to the one on the ulnar side of her hand just over the area of the ulnar styloid. They did communicate with the more distal abscess at the completion of the procedure. These abscesses were drained and packed. OPERATIVE TIME: 45 minutes. DESCRIPTION OF PROCEDURE: The patient was seen at the bedside where the operation was performed. The left dorsal wrist was prepped with Betadine and draped in the usual sterile fashion. Bupivacaine 0.25% plain was used to make a field block as well as a block directly over the incision. Approximately 18 mL were used. Once the anesthetic had taken effect, a 15-blade was used to make a transverse incision over the area of fluctuance just distal to the ulnar styloid. The incision was made down through the skin down to the subcutaneous tissue using blunt dissection. The cavity was opened. It was then explored and irrigated. It was shown to connect with the distal opening which was slightly enlarged. The area was copiously irrigated with saline. Loculations were broken up with Q-tips which, were introduced into the wound both proximally and distally. The wounds were then packed with iodoform packing and dressed with anti-stick dressing, 4 x 4s, and Prashant. The patient was then given back to the care of the floor staff. Postoperative instructions will include removing the dressing in 24 hours, beginning once or twice daily soaks and Betadine and water. The patient can followup in my office later in the week as needed. MD VELVET Downey/stephen , 10:36 AM , 10:45 AM
[2017-12-10] MEDS: Sod Chloride 0.9% Inj 1,000 ML IV.CONT SCH ×3 (12:09→14:29)
--- NOTE | 2017-12-10 16:58 | P.DS ---
Date of admission: 12/08/17 10:47 Primary care physician: No Primary Care Physician Attending physician on discharge: Carmelo Mclean Anticipated date of discharge: 12/10/17 Brief History from admission: Patient is a 42-year-old female with a history of IV drug use as well as hepatitis C who has a left hand abscess had been admitted for antibiotics and was supposed to go to the operating room but became upset last night and left AGAINST MEDICAL ADVICE this morning because no one was feeding her. Patient of course now returns after getting no food except for coffee. She is now upset that she came back into the hospital for treatment regarding her left hand abscess and cellulitis has already been drained in the emergency room for 2 abscesses regarding a blister on the dorsum of the left hand as well as a smaller abscess in the lateral thenar eminence. DS: Diagnosis - Discharge Diagnosis (1) Hand abscess Status: Acute (2) Sepsis Status: Acute (3) IVDU (intravenous drug user) Status: Chronic (4) Hepatitis C Status: Chronic (5) Bipolar 1 disorder Status: Chronic (6) Non compliance w medication regimen Status: Acute DS: Medications - Discharge Medications Prescriptions: cephalexin 500 mg PO QID 10 Days #40 cap DS: Summary Hospital Course: Patient is a 42-year-old female with a history of IV drug use as well as hepatitis C who has a left hand abscess had been admitted for antibiotics 12/06 and was supposed to go to the operating room but became upset and left AGAINST MEDICAL ADVICE because she was NPO. Pt. presented back later for same. Continue with antibiotics-Vanco and Clindamycin Patient with penicillin allergy Culture positive for group a beta strep, contacted micro for further sensitivity Appreciate ID input, Discontinued Azactam and Flagyl. Dr. Santos consulted, did I/D on 12/10 ID recommended Keflex, had first dose, tolerated well. was discharged home in stable condition. Supplies given for wound care Counselled to stop doing drugs. - Time Spent with Patient Total time spent providing and/or coordinating discharge services: 40 minutes Greater than 30 minutes - Quality: VTE Deep Vein Thrombosis/Pulmonary Embolism Present on Admission: No Exam Vital signs: Vital Signs 12/09/17 20:00 12/10/17 00:00 12/10/17 08:00 Temperature 97.5 F L 97.6 F 97.5 F L Pulse Rate 77 74 68 Respiratory Rate 17 18 18 Blood Pressure 136/67 136/68 137/78 Pulse Oximetry 98 98 99 12/10/17 08:20 12/10/17 12:00 12/10/17 12:04 Temperature 98 F Pulse Rate 91 H Respiratory Rate 8 L 18 18 Blood Pressure 149/90 H Pulse Oximetry 98 12/10/17 13:07 12/10/17 16:00 Temperature 98.2 F Pulse Rate 80 Respiratory Rate 18 18 Blood Pressure 149/86 H Pulse Oximetry 98 Intake & Output 12/09/17 12/10/17 12/10/17 18:59 06:59 18:59 Intake Total 2019 1070 / 1070 1300 / 1300 Balance 2019 1070 / 1070 1300 / 1300 Weight 49.8 kg Intake: IV 1300 / 1300 450 / 450 1300 / 1300 NS Inj 1,000 ML @ 100 mls/hr IV 600 / 600 400 / 400 .CONT .Q10H [facility] Rx#:[id number] Azactam Inj 1,000 MG In NS Inj 100 / 100 100 / 100 200 / 200 100 ML @ 200 mls/hr IV.SIG Q8H [facility] Rx#:[id number] Vancomycin Inj 1,000 MG In NS 500 / 500 250 / 250 500 / 500 Inj 250 ML @ 250 mls/hr IV.SIG Q8H [facility] Rx#:[id number] Flagyl 500 MG Inj 100 ML @ 100 100 / 100 100 / 100 200 / 200 mls/hr IV.SIG Q8H [facility] Rx#: [id number] Oral 720 / 720 620 / 620 Other: # Voids 4 850 Date of Last Bowel Movement 12/09/17 12/09/17 12/09/17 # Bowel Movements 1 Results Procedures completed during hospitalization: I/D left hand 12/10/2017 Labs on day of discharge: Labs from last 24 hours 12/10/17 06:00 Vancomycin Trough 15.9 H - Impressions ITS Impressions Forearm MRI 12/09/17 00:00 CONCLUSION: 1. Diffuse subcutaneous swelling and edema of the forearm consistent with generalized cellulitis. No abscess of the forearm 2. Small subcutaneous abscess dorsal to the fourth and fifth carpometacarpal joints is not significantly changed from the comparison CT. A small and potentially new subcutaneous abscess is seen slightly more distal, dorsal to the second and third metacarpals. There is also a small subcutaneous abscess dorsal to the base of the first metacarpal which also appears new. 3. No evidence of osteomyelitis. Discharge Plan - Discharge Disposition Patient Disposition: 01 Discharge Home - Discharge Condition Condition: Stable - Discharge Order Discharge Orders: Discharge Order (Routine); Ordered 12/10/17 Ordered By: Jemma Reyna Hand Surgery Clear for Discharge (Routine); Ordered 12/11/17 Ordered By: Tiana Santos - Discharge Details Anticipated Discharge Date: 12/10/17 Discharge Comment: wait until ID sees pt. - Physicians Team Primary Care Provider: Primary Care Stefanie Santamaria Attending Provider: Carmelo Mclean Other Providers: Tiana Santos MD ; Deya Monroe MD
--- NOTE | 2017-12-10 17:18 | P.PNID ---
Subjective Remarks: sp b/s drainage of L hand abscesses feels good no temps Antibiotics: azactam flaguyl vanco Allergies/Adverse Reactions: Allergies penicillin G Allergy (Severe, Verified 10/11/17 12:41) HIVES sulfamethoxazole Allergy (Severe, Verified 10/11/17 12:41) SWELLING AND HIVES trimethoprim Allergy (Severe, Verified 10/11/17 12:41) SWELLING AND HIVES Objective Vital Signs 12/09/17 20:00 12/10/17 00:00 12/10/17 08:00 Temperature 97.5 F L 97.6 F 97.5 F L Pulse Rate 77 74 68 Respiratory Rate 17 18 18 Blood Pressure 136/67 136/68 137/78 Pulse Oximetry 98 98 99 12/10/17 08:20 12/10/17 12:00 12/10/17 12:04 Temperature 98 F Pulse Rate 91 H Respiratory Rate 8 L 18 18 Blood Pressure 149/90 H Pulse Oximetry 98 12/10/17 13:07 12/10/17 16:00 Temperature 98.2 F Pulse Rate 80 Respiratory Rate 18 18 Blood Pressure 149/86 H Pulse Oximetry 98 Intake & Output 12/09/17 12/10/17 12/10/17 18:59 06:59 18:59 Intake Total 2019 1070 / 1070 1300 / 1300 Balance 2019 1070 / 1070 1300 / 1300 Weight 49.8 kg Intake: IV 1300 / 1300 450 / 450 1300 / 1300 NS Inj 1,000 ML @ 100 mls/hr IV 600 / 600 400 / 400 .CONT .Q10H JOHANA Rx#:[id number] Azactam Inj 1,000 MG In NS Inj 100 / 100 100 / 100 200 / 200 100 ML @ 200 mls/hr IV.SIG Q8H JOHANA Rx#:[id number] Vancomycin Inj 1,000 MG In NS 500 / 500 250 / 250 500 / 500 Inj 250 ML @ 250 mls/hr IV.SIG Q8H JOHANA Rx#:[id number] Flagyl 500 MG Inj 100 ML @ 100 100 / 100 100 / 100 200 / 200 mls/hr IV.SIG Q8H JOHANA Rx#: [id number] Oral 720 / 720 620 / 620 Other: # Voids 4 850 Date of Last Bowel Movement 12/09/17 12/09/17 12/09/17 # Bowel Movements 1 12/08/17 11:30 Wound - Hand Gram Stain - Final 12/08/17 11:30 Wound - Hand Wound Culture - Final Group A beta Strep Lab - Hematology Results 12/09/17 07:56 WBC 9.9 RBC 4.19 Hgb 11.8 Hct 35.3 MCV 84.3 MCH 28.2 MCHC 33.4 RDW 15.5 Plt Count 291 MPV 8.6 Neut % (Auto) 72.1 H Lymph % (Auto) 17.2 [place] % (Auto) 7.9 Eos % (Auto) 1.7 Baso % (Auto) 1.1 Neut # (Auto) 7.2 Lymph # (Auto) 1.7 [place] # (Auto) 0.8 Eos # (Auto) 0.2 Baso # (Auto) 0.1 WBC Differential . Differential Comment Auto diff final Lab - Chemistry Results 12/09/17 07:56 Sodium 144 Potassium 3.9 Chloride 110 H Carbon Dioxide 25.3 Anion Gap 9 BUN 7 Creatinine 0.69 Estimated GFR Greater than 89 Random Glucose 111 H Calcium 8.1 L Total Bilirubin 0.4 AST 27 ALT 45 Alkaline Phosphatase 91 Total Protein 6.2 L D Albumin 2.3 L Imaging: ITS Impressions Forearm MRI 12/09/17 00:00 CONCLUSION: 1. Diffuse subcutaneous swelling and edema of the forearm consistent with generalized cellulitis. No abscess of the forearm 2. Small subcutaneous abscess dorsal to the fourth and fifth carpometacarpal joints is not significantly changed from the comparison CT. A small and potentially new subcutaneous abscess is seen slightly more distal, dorsal to the second and third metacarpals. There is also a small subcutaneous abscess dorsal to the base of the first metacarpal which also appears new. 3. No evidence of osteomyelitis. Physical Exam: GENERAL: NAD SKIN: Warm and dry. no rash EYES: No scleral icterus. No injection or drainage. No CARDIOVASCULAR: Regular rate and rhythm without murmurs, gallops, or rubs. RESPIRATORY: Breath sounds equal bilaterally. No accessory muscle use. GASTROINTESTINAL: Abdomen soft, non-tender, nondistended. MUSCULOSKELETAL: No cyanosis, L foream, hand improved soft edema. no iduration no ascending cellulit, lymphangitis NEURO: non focal,,awake, alert PSYCH: cooperative Assessment and Plan - Plan IVDU L hand abscess, GAS worsening ascending LUE edema abs associated diarrhea L neck pain ? stairn dc current abx Keflex 500 qid 1st dose inpt and observe OK to dc home if no reaction shannon ARGUELLO
[2017-12-11] MEDS ORDERED: Povidone Iodine 10% Top Soln 118 ML Bottle TOPICAL SCH (09:00)
== END 2017-12-10 19:00 | disposition home or self-care (01) ==
LOC: NEPC 08:31 → NEDA 10:47 → N04 11:50
PROVIDERS: ADMIT Family Medicine; ATTEND Family Medicine